=== PATIENT | female | born 1975 | race Caucasian/White ===

== ENCOUNTER 2021-06-01 21:07 | Inpatient (IN) | payer OTHER, SELFPAY ==
--- NOTE | 2021-06-01 | ECG_ITS ---
Test Reason : MEDCLEARANCE Blood Pressure : / mmHG Vent. Rate : 082 BPM Atrial Rate : 082 BPM P-R Int : 130 ms QRS Dur : 080 ms QT Int : 388 ms P-R-T Axes : 043 006 049 degrees QTc Int : 453 ms Artifact in tracing Normal sinus rhythm Likely Normal ECG No previous ECGs available Referred By: Reagan Brown Electronically Signed By:MARIA A TOMAS
[2021-06-01 21:13] VITALS: BP 133/80; PULSE 99; RESP 18; TEMP 36.8; O2SAT 98; BMI 25.0
[2021-06-01 21:38] LABS: MANUAL DIFF FLAG NO
[2021-06-01 21:39] LABS: Basophils Percent Auto 0.3 % (0-2); Eosinophils Absolute Auto 0.1 X10*3/uL (0.0-0.4); Eosinophils Percent Auto 0.5 % (0-4); Hematocrit 41.5 % (37.0-47.0); Hemoglobin 13.7 g/dl (12.0-16.0); Imm Gran Abs Auto 0.02 X10*3/uL (0.00-0.03); Imm Gran Pct Auto 0.2 % (0.0-0.4); Lymphocytes Absolute Auto 2.2 X10*3/uL (1.2-4.9); Lymphocytes Percent Auto 21.9 % (20-40); Mean Corpuscular Hemoglobin 31.2 pg (27.0-33.0); Mean Corpuscular Volume 94.5 fL (80.0-98.0); Mean Platelet Volume 9.7 fL (9.4-12.3); Monocytes Absolute Auto 0.7 X10*3/uL (0.1-1.2); Monocytes Percent Auto 6.5 % (2-11); Neutrophils Absolute Auto 7.1 x10*3/uL (2.0-8.3); Neutrophils Percent Auto 70.6 % (45-73); Platelet Count 225 X10*3/uL (160-400); Red Blood Count 4.39 X10*6/uL (4.20-5.50); Red Cell Distribution Width 12.6 % (11.0-16.0); White Blood Count 10.1 X10*3/uL (4.8-10.8)
[2021-06-01 21:51] LABS: COVID-19 Test Negative (Negative)
[2021-06-01 21:55] LABS: Ethanol < 10 mg/dL
--- NOTE | 2021-06-01 21:57 | ED.PSYCH ---
HPI - Psych General Chief Complaint: Psychiatric Symptoms Stated Complaint: SI Section 12 Time Seen by Provider: 06/01/21 21:57 Source: patient and EMS Mode of arrival: EMS Limitations: no limitations History of Present Illness HPI Narrative: Patient is a 45 year old female presenting to the emergency department today with a section [address] due to suicidal ideation and a Tylenol overdose. Patient states that at 1930 this evening, she took 20 500mg Tylenol PM tablets, attempting to hurt herself. Patient states that she feels sleepy and nauseous but has no other complaints. Patient denies any dizziness, lightheadedness, abdominal pain, vomiting, fever, chills, blurry vision, double vision, loss of vision, chest pain, difficulty breathing, shortness of breath, back pain, night sweats, pain with urination, increased urinary frequency, increased urinary urgency, blood in her urine or stool, syncope or a near syncopal episode, recent trauma or falls, bowel incontinence, bladder incontinence, bowel retention, bladder retention, or any other complaints at this time. MD complaint: suicidal ideation and feels depressed Onset (ago): hour(s) Duration: constant Associated psychiatric symptoms: depression and suicidal ideation If self harm: admits thoughts of self harm, has plan, has acted on plan and intentional overdose Related Data Home Medications Medication Instructions Recorded Confirmed No Known Home Meds 06/01/21 06/01/21 Allergies Allergy/AdvReac Type Severity Reaction Status Date / Time No Known Allergies Allergy Verified 06/01/21 21:19 Review of Systems Constitutional: Constitutional: Reports no additional constitutional complaints, Denies chills, Denies fever(s) and Denies night sweats Eyes: Eyes: Reports no additional eye complaints, Denies blurry vision, Denies change in vision, Denies diplopia, Denies eye discharge, Denies loss of vision and Denies eye pain ENT: Denies dizziness Cardiovascular: Cardiovascular: Reports no additional cardiovascular complaints, Denies chest pain, Denies lightheadedness, Denies Loss of Consciousness and Denies dyspnea Respiratory: Respiratory: Reports no additional respiratory complaints and Denies dyspnea Gastrointestinal: Gastrointestinal: Reports no additional gastrointestinal complaints, Denies abdominal pain, Denies melena, Denies hematochezia, Denies change in bowel habits, Denies change in stool character and Reports nausea Genitourinary: Genitourinary: Denies hematuria, Denies urinary frequency, Denies dysuria, Denies urinary incontinence, Denies urinary hesitancy and Denies urinary urgency Musculoskeletal: Musculoskeletal: Reports no additional musculoskeletal complaints, Denies numbness and Denies tingling Neurologic: Denies dizziness, Denies loss of vision, Denies numbness and Denies tingling Psychiatric: Psychiatric: Reports no additional psychiatric complaints, Reports depression and Reports suicidal ideation Endocrine: Endocrine: Reports no additional endocrine complaints Hematologic/Lymphatic: Hematologic/Lymphatic: Reports no additional hematologic/lymphatic complaints Allergic/Immunologic: Allergic/Immunologic: Reports no additional allergic/immunologic complaints [facility] Past Medical History Attestation statement: The following information was validated with the patient. Source: old records reviewed Social History Social History Advance Directives: No Patient : No Physical Exam Vital Signs: Vital Signs: Last Vital Signs Temp 98.2 F 06/01/21 21:13 Pulse 99 06/01/21 21:13 Resp 18 06/01/21 21:13 BP 133/80 06/01/21 21:13 Pulse Ox 98 06/01/21 21:13 BMI result Body Mass Index 22.4 Const: General: cooperative, no acute distress, alert and awake Nutritional Appearance: well nourished Orientation/consciousness: patient oriented x3 Limitations: no limitations HENMT: Head: Yes normal to inspection and Yes atraumatic Ears: hearing grossly normal bilaterally and external ears normal General nose exam: Normal external nose present, no nasal discharge noted and no epistaxis Face and sinus: Yes normal facial exam, No abrasion and No laceration Mouth: Normal oral and palatal mucosa present, no drooling and no muffled voice Eyes: General: appearance normal, both eyes and all related structures Periorbital: periorbital findings normal Eyelids: Yes eyelids normal Conjunctivae: conjunctivae normal Pupils: Equal, round and reactive pupils present EOM: EOMs intact bilaterally Neck: Neck: Yes normal visual inspection, Yes full ROM and Yes no lymphadenopathy Chest: Chest palpation & inspection: normal inspection of the chest Resp: Effort & Inspection: normal respiratory effort and able to speak in complete sentences Auscultation: clear to auscultation bilaterally Cardio: Rate: regular rate Rhythm: regular rhythm GI: Inspection: Yes normal to inspection Neuro: General: patient oriented x3 and moves all extremities Cranial nerves: Yes Equal, round and reactive pupils present Cognition (Neuro): normal cognition Motor exam (neuro): 5/5 motor strength present throughout Sensory Exam: Normal double simultaneous stimulation for sensation Coordination: [id number] test normal Extrem: General: Yes normal to inspection, Yes full ROM and Yes capillary refill normal Psych: Appearance: grossly normal Mental Status: mental status grossly normal Affect: normal affect Attitude: cooperative Thought process: Normal thought process present Thought content: Suicidality present and Depressive thoughts present Insight: Good insight present (Psych) MDM - Psych MDM Narrative Medical decision making narrative: Patient is a 45 year old female presenting to the emergency department today with suicidal ideation and an intentional overdose on Tylenol. Patient has a section [address] as well. Patient's physical exam showed a sleepy individual who is suicidal but otherwise unremarkable. Patient's blood work showed an elevated alcohol level at 153 but a normal salicyclate, CMP, and CBC. Patient's urine toxicology was positive for THC. Patient's EKG was unremarkable. I called and spoke to poison control who recommended the patient be given Tylenol antidote and admitted for continued evaluation. I explained my physical exam findings as well as all test results to the patient. I answered all questions asked by the patient. I spoke to Dr. Feliz who agreed to admission. Patient verbalized agreement and understanding with this treatment plan and admission. Patient will be evaluated by psych after cleared medically. Differential Diagnosis Differential diagnosis: Likely suicidal ideation, substance abuse and overdose Medical Records Attestation: I reviewed the patient's medical records. Lab Data Attestation: I reviewed the patient's lab results. Result diagrams: 06/01/21 21:35 06/01/21 21:35 Labs: Lab Results 06/01/21 06/01/21 06/01/21 Range/Units 21:29 21:35 21:35 WBC 10.1 (4.8-10.8) X10*3/uL RBC 4.39 (4.20-5.50) X10*6/uL Hgb 13.7 (12.0-16.0) g/dl Hct 41.5 (37.0-47.0) % MCV 94.5 (80.0-98.0) fL MCH 31.2 (27.0-33.0) pg MCHC 33.0 (31.0-35.0) g/dl RDW 12.6 (11.0-16.0) % Plt Count 225 (160-400) X10*3/uL MPV 9.7 (9.4-12.3) fL Immature Gran % (Auto) 0.2 (0.0-0.4) % Neut % (Auto) 70.6 (45-73) % Lymph % (Auto) 21.9 (20-40) % [place] % (Auto) 6.5 (2-11) % Eos % (Auto) 0.5 (0-4) % Baso % (Auto) 0.3 (0-2) % Lymph # (Auto) 2.2 (1.2-4.9) X10*3/uL [place] # (Auto) 0.7 (0.1-1.2) X10*3/uL Eos # (Auto) 0.1 (0.0-0.4) X10*3/uL Baso # (Auto) 0.0 (0.0-0.2) X10*3/uL Abs Immat Gran (auto) 0.02 (0.00-0.03) X10*3/uL Absolute Neuts (auto) 7.1 (2.0-8.3) x10*3/uL Absolute Nucleated RBC 0.000 (0.0-0.012) X10*3/uL Nucleated RBC % (auto) 0.0 (0.0-0.2) /100WBC Sodium 140 (135-145) mmol/L Potassium 4.1 (3.3-5.1) mmol/L Chloride 104 (96-108) mmol/L Carbon Dioxide 27 (22-29) mmol/L Anion Gap 13 (12-20) BUN 14 (9-16) mg/dL Creatinine 0.86 (0.5-1.4) mg/dL Estim Creat Clear Calc 74.3 Estimated GFR > 60 Random Glucose 116 H (60-115) mg/dL Calcium 9.6 (8.4-10.2) mg/dL Total Bilirubin 0.4 (0.0-1.0) mg/dL Direct Bilirubin 0.2 (0.0-0.5) mg/dL AST 16 (5-31) U/L ALT 10 (0-31) U/L Alkaline Phosphatase 64 (39-117) U/L Total Protein 7.8 (6.5-8.0) g/dL Albumin 4.8 (3.5-5.0) g/dL Urine Color Urine Appearance Urine pH (5.0-8.0) Ur Specific [place] (1.005-1.025) Urine Protein (NEG-TRACE) MG/DL Urine Glucose (UA) (NEG) MG/DL Urine Ketones (NEG) MG/DL Urine Blood (NEG) Urine Nitrite (NEG) Ur Leukocyte Esterase (NEG) Urine RBC (0) /HPF Urine WBC (0-4) /HPF Ur Squamous Epith Cells /LPF Amorphous Sediment /LPF Urine Bacteria /LPF Hyaline Casts /LPF Urine Mucus /LPF Urine Test (NEGATIVE) Salicylates < 5.0 L (15-30) mg/dL Urine Opiates Screen (Not Detect) Urine Fentanyl Screen (Not Detect) Acetaminophen 153 H* (<30) mcg/mL Ur Barbiturates Screen (Not Detect) Ur Phencyclidine Scrn (Not Detect) Ur Amphetamines Screen (Not Detect) U Benzodiazepines Scrn (Not Detect) Urine Cocaine Screen (Not Detect) U Marijuana (THC) Screen (Not Detect) Ethyl Alcohol mg/dL COVID-19 ([facility]) Negative (Negative) COVID-19 Clin Com See Note 06/01/21 06/01/21 06/01/21 Range/Units 21:35 22:12 22:12 WBC (4.8-10.8) X10*3/uL RBC (4.20-5.50) X10*6/uL Hgb (12.0-16.0) g/dl Hct (37.0-47.0) % MCV (80.0-98.0) fL MCH (27.0-33.0) pg MCHC (31.0-35.0) g/dl RDW (11.0-16.0) % Plt Count (160-400) X10*3/uL MPV (9.4-12.3) fL Immature Gran % (Auto) (0.0-0.4) % Neut % (Auto) (45-73) % Lymph % (Auto) (20-40) % [place] % (Auto) (2-11) % Eos % (Auto) (0-4) % Baso % (Auto) (0-2) % Lymph # (Auto) (1.2-4.9) X10*3/uL [place] # (Auto) (0.1-1.2) X10*3/uL Eos # (Auto) (0.0-0.4) X10*3/uL Baso # (Auto) (0.0-0.2) X10*3/uL Abs Immat Gran (auto) (0.00-0.03) X10*3/uL Absolute Neuts (auto) (2.0-8.3) x10*3/uL Absolute Nucleated RBC (0.0-0.012) X10*3/uL Nucleated RBC % (auto) (0.0-0.2) /100WBC Sodium (135-145) mmol/L Potassium (3.3-5.1) mmol/L Chloride (96-108) mmol/L Carbon Dioxide (22-29) mmol/L Anion Gap (12-20) BUN (9-16) mg/dL Creatinine (0.5-1.4) mg/dL Estim Creat Clear Calc Estimated GFR Random Glucose (60-115) mg/dL Calcium (8.4-10.2) mg/dL Total Bilirubin (0.0-1.0) mg/dL Direct Bilirubin (0.0-0.5) mg/dL AST (5-31) U/L ALT (0-31) U/L Alkaline Phosphatase (39-117) U/L Total Protein (6.5-8.0) g/dL Albumin (3.5-5.0) g/dL Urine Color YELLOW Urine Appearance CLEAR Urine pH 5.5 (5.0-8.0) Ur Specific [place] >= 1.030 H (1.005-1.025) Urine Protein 1+ H (NEG-TRACE) MG/DL Urine Glucose (UA) NEG (NEG) MG/DL Urine Ketones 15 (NEG) MG/DL Urine Blood NEG (NEG) Urine Nitrite NEG (NEG) Ur Leukocyte Esterase NEG (NEG) Urine RBC 0-2 (0) /HPF Urine WBC 0 (0-4) /HPF Ur Squamous Epith Cells 2+ /LPF Amorphous Sediment 2+ /LPF Urine Bacteria NONE /LPF Hyaline Casts 0-2 /LPF Urine Mucus 4+ /LPF Urine Test NEGATIVE (NEGATIVE) Salicylates (15-30) mg/dL Urine Opiates Screen (Not Detect) Urine Fentanyl Screen (Not Detect) Acetaminophen (<30) mcg/mL Ur Barbiturates Screen (Not Detect) Ur Phencyclidine Scrn (Not Detect) Ur Amphetamines Screen (Not Detect) U Benzodiazepines Scrn (Not Detect) Urine Cocaine Screen (Not Detect) U Marijuana (THC) Screen (Not Detect) Ethyl Alcohol < 10 mg/dL COVID-19 ([facility]) (Negative) COVID-19 Clin Com 06/01/21 Range/Units 22:12 WBC (4.8-10.8) X10*3/uL RBC (4.20-5.50) X10*6/uL Hgb (12.0-16.0) g/dl Hct (37.0-47.0) % MCV (80.0-98.0) fL MCH (27.0-33.0) pg MCHC (31.0-35.0) g/dl RDW (11.0-16.0) % Plt Count (160-400) X10*3/uL MPV (9.4-12.3) fL Immature Gran % (Auto) (0.0-0.4) % Neut % (Auto) (45-73) % Lymph % (Auto) (20-40) % [place] % (Auto) (2-11) % Eos % (Auto) (0-4) % Baso % (Auto) (0-2) % Lymph # (Auto) (1.2-4.9) X10*3/uL [place] # (Auto) (0.1-1.2) X10*3/uL Eos # (Auto) (0.0-0.4) X10*3/uL Baso # (Auto) (0.0-0.2) X10*3/uL Abs Immat Gran (auto) (0.00-0.03) X10*3/uL Absolute Neuts (auto) (2.0-8.3) x10*3/uL Absolute Nucleated RBC (0.0-0.012) X10*3/uL Nucleated RBC % (auto) (0.0-0.2) /100WBC Sodium (135-145) mmol/L Potassium (3.3-5.1) mmol/L Chloride (96-108) mmol/L Carbon Dioxide (22-29) mmol/L Anion Gap (12-20) BUN (9-16) mg/dL Creatinine (0.5-1.4) mg/dL Estim Creat Clear Calc Estimated GFR Random Glucose (60-115) mg/dL Calcium (8.4-10.2) mg/dL Total Bilirubin (0.0-1.0) mg/dL Direct Bilirubin (0.0-0.5) mg/dL AST (5-31) U/L ALT (0-31) U/L Alkaline Phosphatase (39-117) U/L Total Protein (6.5-8.0) g/dL Albumin (3.5-5.0) g/dL Urine Color Urine Appearance Urine pH (5.0-8.0) Ur Specific [place] (1.005-1.025) Urine Protein (NEG-TRACE) MG/DL Urine Glucose (UA) (NEG) MG/DL Urine Ketones (NEG) MG/DL Urine Blood (NEG) Urine Nitrite (NEG) Ur Leukocyte Esterase (NEG) Urine RBC (0) /HPF Urine WBC (0-4) /HPF Ur Squamous Epith Cells /LPF Amorphous Sediment /LPF Urine Bacteria /LPF Hyaline Casts /LPF Urine Mucus /LPF Urine Test (NEGATIVE) Salicylates (15-30) mg/dL Urine Opiates Screen Not Detected (Not Detect) Urine Fentanyl Screen Not Detected (Not Detect) Acetaminophen (<30) mcg/mL Ur Barbiturates Screen Not Detected (Not Detect) Ur Phencyclidine Scrn Not Detected (Not Detect) Ur Amphetamines Screen Not Detected (Not Detect) U Benzodiazepines Scrn Not Detected (Not Detect) Urine Cocaine Screen Not Detected (Not Detect) U Marijuana (THC) Screen POSITIVE H (Not Detect) Ethyl Alcohol mg/dL COVID-19 ([facility]) (Negative) COVID-19 Clin Com ECG Data Attestation: I personally reviewed and interpreted this ECG as follows: ECG interpretation date: 06/01/21 ECG interpretation time: 21:36 Prior ECG tracings: not available for review Interpretation: Vent. Rate: 082 BPM ? ? Atrial Rate: 082 BPM P-R Int: 130 ms? QRS Dur: 080 ms QT Int: 388 ms ? ? ? P-R-T Axes: 043 006 049 degrees QTc Int: 453 ms ? Normal sinus rhythm Normal ECG No previous ECGs available Discharge Plan Discharge Clinical Impression: Depression, Feeling suicidal, Overdose by acetaminophen Patient Disposition: Admitted As Inpatient Prescriptions: No Action No Known Home Meds 0RF Print Language: Cameroonian
[2021-06-01 22:04] LABS: Acetaminophen LAB 153 mcg/mL (<30); Alanine Aminotransferase 10 U/L (0-31); Albumin Level 4.8 g/dL (3.5-5.0); Alkaline Phosphatase 64 U/L (39-117); Anion Gap 13 (12-20); Aspartate Amino Transferase 16 U/L (5-31); Bilirubin Direct 0.2 mg/dL (0.0-0.5); Bilirubin Total 0.4 mg/dL (0.0-1.0); Blood Urea Nitrogen 14 mg/dL (9-16); Calcium 9.6 mg/dL (8.4-10.2); Carbon Dioxide 27 mmol/L (22-29); Chloride 104 mmol/L (96-108); Creatinine Clr Calc Pharmacy 74.3; Estimated Glomerular Filt Rate > 60; Glucose Random 116 mg/dL (60-115); Potassium 4.1 mmol/L (3.3-5.1); Salicylate < 5.0 mg/dL (15-30); Sodium 140 mmol/L (135-145); Total Protein 7.8 g/dL (6.5-8.0)
[2021-06-01 22:19] LABS: Appearance Urine CLEAR; Color Urine YELLOW; Glucose Urine UA NEG (NEG); Leukocyte Esterase Urine NEG (NEG); Nitrite Urine NEG (NEG); PH 5.5 (5.0-8.0); Specific Gravity - Urine >= 1.030 (1.005-1.025); Urine Blood NEG (NEG); Urine Ketones 15 MG/DL (NEG); Urine Protein 1+ MG/DL (NEG-TRACE)
[2021-06-01 22:21] LABS: UPreg QC Valid YES; Urine Pregnancy NEGATIVE (NEGATIVE)
[2021-06-01 22:30] LABS: Amorphous Sediment Urine 2+ /LPF; Hyaline Casts Urine 0-2 /LPF; Mucus Urine 4+ /LPF; RBC Urine 0-2 /HPF (0); Squamous Epithelial Cell Urine 2+ /LPF; WBC Urine 0 /HPF (0-4)
[2021-06-01 22:31] VITALS: BMI 22.4
[2021-06-01 22:46] LABS: Amphetamine Screen Urine Not Detected (Not Detect); Barbiturates, Urine Not Detected (Not Detect); Benzodiazepines Screen Urine Not Detected (Not Detect); Cannabinoid Screen Urine POSITIVE (Not Detect); Cocaine Screen Urine Not Detected (Not Detect); Fentanyl, urine Not Detected (Not Detect); Opiate Screen Urine Not Detected (Not Detect); Phencyclidine Screen Urine Not Detected (Not Detect)
--- NOTE | 2021-06-01 23:11 | P.HPHOSP_ITS ---
History of Present Illness Date of Service: 06/01/21 Chief Complaint: Suicide attempt 45-year-old female with past medical history of depression presents to the hospital after suicidal attempt with Tylenol. Patient reports that she ingested more than 20 pills of Tylenol p.m. in attempt to kill herself. Patient at this time reports remorse and does not feel like she wants to hurt herself anymore. She denies any abdominal pain but reports nausea, no chest pain, no palpitations, no headache change in vision, no dizziness. No urinary symptoms and no lower extremity edema. No numbness tingling or weakness. on arrival to the ED patient with dynamic least stable labs unremarkable, no abnormal LFTs at this time Poison control contacted, patient started on acetylcysteine, recommendation was to repeat labs frequently suicide watch place in patient room, and patient will be admitted for further management Review of Systems Review of Systems: Yes all other systems are reviewed and are negative [facility] Medical History (Updated 06/02/21 @ 06:48 by Samantha Feliz MD) Depression Family History (Updated 06/02/21 @ 06:48 by Samantha Feliz MD) Other No family history of coronary artery disease Surgical History (Updated 06/02/21 @ 06:48 by Samantha Feliz MD) No pertinent past surgical history Social History (Updated 06/02/21 @ 06:48 by Samantha Feliz MD) Alcohol intake: current Patient Tobacco Use Status: Current everyday Tobacco user Cigarette Packs Per Day: 1 Use of substances other than those prescribed or required for medical reasons: No Advance Directives: No Patient : No Meds Allergies Allergy/AdvReac Type Severity Reaction Status Date / Time No Known Allergies Allergy Verified 06/01/21 21:19 Active Medications: Current Medications Acetylcysteine 9,170 mg/ (Dextrose) 245.85 mls @ 245.85 mls/hr IV ONCE ONE Stop: 06/01/21 23:20 Acetylcysteine 6,110 mg/ (Dextrose) 1,030.55 mls @ 64.4 mls/hr IV ONCE ONE Stop: 06/02/21 20:00 Acetylcysteine 3,060 mg/ (Dextrose) 515.3 mls @ 128.825 mls/hr IV ONCE ONE Stop: 06/02/21 03:59 Home Medications Medication Instructions Recorded Confirmed Last Taken Type No Known Home Meds 06/01/21 06/01/21 Unknown History Physical Exam Vital Signs and Narrative: Vital Signs: Last Vital Signs Temp 98.2 F 06/01/21 21:13 Pulse 99 06/01/21 21:13 Resp 18 06/01/21 21:13 BP 133/80 06/01/21 21:13 Pulse Ox 98 06/01/21 21:13 BMI result Body Mass Index 22.4 Const: General: cooperative and no acute distress Orientation/consciousness: patient oriented x3 Eyes: General: appearance normal, both eyes and all related structures Pupils: Equal, round and reactive pupils present Resp: Effort & Inspection: normal respiratory effort Auscultation: clear to auscultation bilaterally Cardio: Rate: regular rate Rhythm: regular rhythm GI: Other: no abdominal tenderness, rebound or guarding Palpation (GI): Soft to palpation Auscultation: normal bowel sounds Skin: General skin exam: no rashes or lesions noted Neuro: General: patient oriented x3 Cranial nerves: Yes Equal, round and reactive pupils present Cognition (Neuro): normal cognition Extrem: General: Yes normal to inspection and Yes no pedal edema Results Labs CBC and Chem 7: 06/01/21 21:35 06/01/21 21:35 Labs: Laboratory Results - last 24 hr 06/01/21 06/01/21 06/01/21 21:29 21:35 21:35 MCV 94.5 MCH 31.2 MCHC 33.0 RDW 12.6 Plt Count 225 MPV 9.7 Immature Gran % (Auto) 0.2 Neut % (Auto) 70.6 Lymph % (Auto) 21.9 [place] % (Auto) 6.5 Eos % (Auto) 0.5 Baso % (Auto) 0.3 Lymph # (Auto) 2.2 [place] # (Auto) 0.7 Eos # (Auto) 0.1 Baso # (Auto) 0.0 Abs Immat Gran (auto) 0.02 Absolute Neuts (auto) 7.1 Absolute Nucleated RBC 0.000 Nucleated RBC % (auto) 0.0 Anion Gap 13 Estim Creat Clear Calc 74.3 Estimated GFR > 60 Random Glucose 116 H Calcium 9.6 Total Bilirubin 0.4 Direct Bilirubin 0.2 AST 16 ALT 10 Alkaline Phosphatase 64 Total Protein 7.8 Albumin 4.8 Urine Color Urine Appearance Urine pH Ur Specific [place] Urine Protein Urine Glucose (UA) Urine Ketones Urine Blood Urine Nitrite Ur Leukocyte Esterase Urine RBC Urine WBC Ur Squamous Epith Cells Amorphous Sediment Urine Bacteria Hyaline Casts Urine Mucus Urine Test Salicylates < 5.0 L Urine Opiates Screen Urine Fentanyl Screen Acetaminophen 153 H* Ur Barbiturates Screen Ur Phencyclidine Scrn Ur Amphetamines Screen U Benzodiazepines Scrn Urine Cocaine Screen U Marijuana (THC) Screen Ethyl Alcohol COVID-19 ([facility]) Negative COVID-19 Clin Com See Note 06/01/21 06/01/21 06/01/21 21:35 22:12 22:12 MCV MCH MCHC RDW Plt Count MPV Immature Gran % (Auto) Neut % (Auto) Lymph % (Auto) [place] % (Auto) Eos % (Auto) Baso % (Auto) Lymph # (Auto) [place] # (Auto) Eos # (Auto) Baso # (Auto) Abs Immat Gran (auto) Absolute Neuts (auto) Absolute Nucleated RBC Nucleated RBC % (auto) Anion Gap Estim Creat Clear Calc Estimated GFR Random Glucose Calcium Total Bilirubin Direct Bilirubin AST ALT Alkaline Phosphatase Total Protein Albumin Urine Color YELLOW Urine Appearance CLEAR Urine pH 5.5 Ur Specific [place] >= 1.030 H Urine Protein 1+ H Urine Glucose (UA) NEG Urine Ketones 15 Urine Blood NEG Urine Nitrite NEG Ur Leukocyte Esterase NEG Urine RBC 0-2 Urine WBC 0 Ur Squamous Epith Cells 2+ Amorphous Sediment 2+ Urine Bacteria NONE Hyaline Casts 0-2 Urine Mucus 4+ Urine Test NEGATIVE Salicylates Urine Opiates Screen Urine Fentanyl Screen Acetaminophen Ur Barbiturates Screen Ur Phencyclidine Scrn Ur Amphetamines Screen U Benzodiazepines Scrn Urine Cocaine Screen U Marijuana (THC) Screen Ethyl Alcohol < 10 COVID-19 ([facility]) COVID-19 Clin Com 06/01/21 22:12 MCV MCH MCHC RDW Plt Count MPV Immature Gran % (Auto) Neut % (Auto) Lymph % (Auto) [place] % (Auto) Eos % (Auto) Baso % (Auto) Lymph # (Auto) [place] # (Auto) Eos # (Auto) Baso # (Auto) Abs Immat Gran (auto) Absolute Neuts (auto) Absolute Nucleated RBC Nucleated RBC % (auto) Anion Gap Estim Creat Clear Calc Estimated GFR Random Glucose Calcium Total Bilirubin Direct Bilirubin AST ALT Alkaline Phosphatase Total Protein Albumin Urine Color Urine Appearance Urine pH Ur Specific [place] Urine Protein Urine Glucose (UA) Urine Ketones Urine Blood Urine Nitrite Ur Leukocyte Esterase Urine RBC Urine WBC Ur Squamous Epith Cells Amorphous Sediment Urine Bacteria Hyaline Casts Urine Mucus Urine Test Salicylates Urine Opiates Screen Not Detected Urine Fentanyl Screen Not Detected Acetaminophen Ur Barbiturates Screen Not Detected Ur Phencyclidine Scrn Not Detected Ur Amphetamines Screen Not Detected U Benzodiazepines Scrn Not Detected Urine Cocaine Screen Not Detected U Marijuana (THC) Screen POSITIVE H Ethyl Alcohol COVID-19 ([facility]) COVID-19 Clin Com Assessment and Plan (1) Overdose by acetaminophen: Status: Acute (2) Depression: Status: Acute (3) Suicide attempt: Status: Acute Plan 45-year-old female with history of depression presents to the hospital after suicidal attempt with Tylenol # suicidal attempt - overdose on Tylenol p.m. - currently hemodynamically stable, labs within normal limits, no LFT change - sitter at bedside - psychiatry consult at # Tylenol overdose - intentional - received 3 doses of acetylcystine - HDS, no abnormal liver function - will follow liver function tests - poison control following # severe depression - [facility] consult DVT prophylaxis: Lovenox Quality Stroke Does the patient have a stroke diagnosis?: No VTE Prior VTE?: No VTE Risk Level:: Medical - moderate - high VTE Device Contraindication: Treatment Not Indicated VTE Drug Contraindication: N/A - Med Ordered
[2021-06-01 23:12] LABS: Prothrombin Time 11.3 SEC (9.9-13.0)
[2021-06-01 23:58] LABS: Alanine Aminotransferase 10 U/L (0-31); Albumin Level 4.5 g/dL (3.5-5.0); Alkaline Phosphatase 62 U/L (39-117); Aspartate Amino Transferase 15 U/L (5-31); Bilirubin Direct 0.2 mg/dL (0.0-0.5); Bilirubin Total 0.4 mg/dL (0.0-1.0); Total Protein 7.3 g/dL (6.5-8.0)
[2021-06-02] MEDS: hydrOXYzine HCL 25 MG TABLET PO ×2 (02:42→21:50)
[2021-06-02 05:41] VITALS: BP 152/83; PULSE 61; RESP 18; TEMP 36.9; O2SAT 100
[2021-06-02 05:44] LABS: Alanine Aminotransferase 29 U/L (0-31); Albumin Level 4.4 g/dL (3.5-5.0); Alkaline Phosphatase 59 U/L (39-117); Aspartate Amino Transferase 54 U/L (5-31); Bilirubin Direct 0.2 mg/dL (0.0-0.5); Bilirubin Total 0.6 mg/dL (0.0-1.0); Total Protein 7.2 g/dL (6.5-8.0)
[2021-06-02 06:42] LABS: MANUAL DIFF FLAG NO
[2021-06-02 06:45] LABS: Basophils Percent Auto 0.1 % (0-2); Hematocrit 40.4 % (37.0-47.0); Hemoglobin 13.5 g/dl (12.0-16.0); Imm Gran Abs Auto 0.02 X10*3/uL (0.00-0.03); Imm Gran Pct Auto 0.2 % (0.0-0.4); Lymphocytes Absolute Auto 1.4 X10*3/uL (1.2-4.9); Lymphocytes Percent Auto 16.3 % (20-40); Mean Corpuscular HGB Conc 33.4 g/dl (31.0-35.0); Mean Corpuscular Volume 92.9 fL (80.0-98.0); Mean Platelet Volume 9.5 fL (9.4-12.3); Monocytes Absolute Auto 0.6 X10*3/uL (0.1-1.2); Monocytes Percent Auto 6.6 % (2-11); Neutrophils Absolute Auto 6.7 x10*3/uL (2.0-8.3); Neutrophils Percent Auto 76.8 % (45-73); Platelet Count 211 X10*3/uL (160-400); Red Blood Count 4.35 X10*6/uL (4.20-5.50); Red Cell Distribution Width 12.6 % (11.0-16.0); White Blood Count 8.8 X10*3/uL (4.8-10.8)
[2021-06-02 07:02] LABS: Anion Gap 13 (12-20); Blood Urea Nitrogen 11 mg/dL (9-16); Carbon Dioxide 23 mmol/L (22-29); Chloride 106 mmol/L (96-108); Creatinine Clr Calc Pharmacy 91.3; Estimated Glomerular Filt Rate > 60; Glucose Random 122 mg/dL (60-115); Potassium 3.7 mmol/L (3.3-5.1); Sodium 138 mmol/L (135-145)
[2021-06-02 07:11] LABS: Alanine Aminotransferase 30 U/L (0-31); Albumin Level 4.2 g/dL (3.5-5.0); Alkaline Phosphatase 59 U/L (39-117); Aspartate Amino Transferase 40 U/L (5-31); Bilirubin Direct 0.2 mg/dL (0.0-0.5); Bilirubin Total 0.7 mg/dL (0.0-1.0)
[2021-06-02] MEDS: ondansetron HCL 4 MG/2 ML VIAL IVPUSH ×2 (08:04→17:51)
[2021-06-02 09:08] LABS: Acetaminophen LAB 49 mcg/mL (<30)
[2021-06-02] MEDS: Nicotine 21 MG PATCH.TD24 TRANSDERMA (09:28)
[2021-06-02 10:16] VITALS: BP 124/70; PULSE 77; RESP 16; TEMP 36.8; O2SAT 97
--- NOTE | 2021-06-02 10:34 | PC.NURSE ---
patient is awake. She does not want any information given to anyone who may call the ED in regards to her status. Dr Jimenes and BIANCA was present on floor
[2021-06-02 11:47] LABS: Alanine Aminotransferase 27 U/L (0-31); Albumin Level 4.3 g/dL (3.5-5.0); Alkaline Phosphatase 59 U/L (39-117); Aspartate Amino Transferase 29 U/L (5-31); Bilirubin Direct 0.3 mg/dL (0.0-0.5); Bilirubin Total 0.8 mg/dL (0.0-1.0)
[2021-06-02 11:55] VITALS: BP 138/69; PULSE 65; RESP 21
--- NOTE | 2021-06-02 12:09 | MHC.CM.PN ---
Addendum entered by Carla Anthony 06/02/21 12:20: PER MD ROUNDS, PT WILL LIKELY BE MEDICALLY CLEARED THIS EVENING. DISCHARGE PLAN TBD PENDING CRISIS EVAL. HOME VS IPL[facility] Original Note: CM ATTEMPTED TO SEE PT TWICE. PT SLEEPING. CM TO REVISIT
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
[2021-06-02 15:52] VITALS: BP 129/64; PULSE 77; RESP 16; TEMP 36.6; O2SAT 98
--- NOTE | 2021-06-02 16:41 | HO.PM.IMPN ---
Subjective Subjective Date of Service: 06/02/21 Interval History: tylenol overdose , anxious Review of Systems denies any chest pain or shortness of breath or abdominal pain or fever chills or cough or phlegm. Physical Exam Vital Signs: Vital Signs: Last Vital Signs Temp 97.9 F 06/02/21 15:52 Pulse 77 06/02/21 15:52 Resp 16 06/02/21 15:52 BP 129/64 06/02/21 15:52 Pulse Ox 98 06/02/21 15:52 BMI result Body Mass Index 22.4 Appearance: Alert.? Oriented X3.? not in distress.? Eyes: Pupils equal, round and reactive to light.? Sclera nonicteric.? ENT: Pharynx normal.? Moist mucous membranes. cvs: rrr, [id number] , no murmur res: clear to auscultation ,no rhonchii or wheezing abd: no rebound or guarding ,nt, bs present. ext pulses present , no cyanosis . neuro: axo3 , nonfocal. psych : anxious , tries to leave . Objective Data Active Medications Docusate Sodium (Docusate Sodium 100 Mg Capsule) 100 mg PO DAILY PRN PRN Reason: Constipation Enoxaparin Sodium (Enoxaparin Sodium 40 Mg/0.4 Ml Syringe) 40 mg SUBCUT Q24H [facility] Last Admin: 06/02/21 09:28 Dose: Not Given Documented by: YOANA Non-Admin Reason: Patient Refused Hydroxyzine HCl (Hydroxyzine Hcl 25 Mg Tablet) 25 mg PO Q6H PRN PRN Reason: anxiety/restlessness Last Admin: 06/02/21 02:42 Dose: 25 mg Documented by: ANDREA Acetylcysteine 6,110 mg/ (Dextrose) 1,030.55 mls @ 64.4 mls/hr IV ONCE ONE Stop: 06/02/21 20:00 Last Admin: 06/02/21 05:26 Dose: 64.4 mls/hr Documented by: ANDREA Nicotine (Nicotine 21 Mg Patch.Td24) 21 mg TRANSDERMA DAILY [facility] Last Admin: 06/02/21 09:28 Dose: 21 mg Documented by: YOANA Ondansetron HCl (Ondansetron Hcl 4 Mg/2 Ml Vial) 4 mg IVPUSH Q8H PRN PRN Reason: Nausea and Vomiting Sodium Chloride (0.9 % Sodium Chloride Flush 3 Ml Syringe) 3 ml IVFLUSH QSHIFT [facility] Last Admin: 06/02/21 15:49 Dose: Not Given Documented by: JENNIFER Non-Admin Reason: IV Running Labs CBC & Chem 7: 06/02/21 06:38 06/02/21 06:38 Labs: Laboratory Results - last 24 hr 06/01/21 06/01/21 06/01/21 21:29 21:35 21:35 MCV 94.5 MCH 31.2 MCHC 33.0 RDW 12.6 Plt Count 225 MPV 9.7 Immature Gran % (Auto) 0.2 Neut % (Auto) 70.6 Lymph % (Auto) 21.9 Lea % (Auto) 6.5 Eos % (Auto) 0.5 Baso % (Auto) 0.3 Lymph # (Auto) 2.2 Lea # (Auto) 0.7 Eos # (Auto) 0.1 Baso # (Auto) 0.0 Abs Immat Gran (auto) 0.02 Absolute Neuts (auto) 7.1 Absolute Nucleated RBC 0.000 Nucleated RBC % (auto) 0.0 PT INR Anion Gap 13 Estim Creat Clear Calc 74.3 Estimated GFR > 60 Random Glucose 116 H Calcium 9.6 Total Bilirubin 0.4 Direct Bilirubin 0.2 AST 16 ALT 10 Alkaline Phosphatase 64 Total Protein 7.8 Albumin 4.8 Urine Color Urine Appearance Urine pH Ur Specific [place] Urine Protein Urine Glucose (UA) Urine Ketones Urine Blood Urine Nitrite Ur Leukocyte Esterase Urine RBC Urine WBC Ur Squamous Epith Cells Amorphous Sediment Urine Bacteria Hyaline Casts Urine Mucus Urine Test Salicylates < 5.0 L Urine Opiates Screen Urine Fentanyl Screen Acetaminophen 153 H* Ur Barbiturates Screen Ur Phencyclidine Scrn Ur Amphetamines Screen U Benzodiazepines Scrn Urine Cocaine Screen U Marijuana (THC) Screen Ethyl Alcohol COVID-19 ([facility]) Negative COVID-19 Clin Com See Note 06/01/21 06/01/21 06/01/21 21:35 22:12 22:12 MCV MCH MCHC RDW Plt Count MPV Immature Gran % (Auto) Neut % (Auto) Lymph % (Auto) Lea % (Auto) Eos % (Auto) Baso % (Auto) Lymph # (Auto) Lea # (Auto) Eos # (Auto) Baso # (Auto) Abs Immat Gran (auto) Absolute Neuts (auto) Absolute Nucleated RBC Nucleated RBC % (auto) PT INR Anion Gap Estim Creat Clear Calc Estimated GFR Random Glucose Calcium Total Bilirubin Direct Bilirubin AST ALT Alkaline Phosphatase Total Protein Albumin Urine Color YELLOW Urine Appearance CLEAR Urine pH 5.5 Ur Specific [place] >= 1.030 H Urine Protein 1+ H Urine Glucose (UA) NEG Urine Ketones 15 Urine Blood NEG Urine Nitrite NEG Ur Leukocyte Esterase NEG Urine RBC 0-2 Urine WBC 0 Ur Squamous Epith Cells 2+ Amorphous Sediment 2+ Urine Bacteria NONE Hyaline Casts 0-2 Urine Mucus 4+ Urine Test NEGATIVE Salicylates Urine Opiates Screen Urine Fentanyl Screen Acetaminophen Ur Barbiturates Screen Ur Phencyclidine Scrn Ur Amphetamines Screen U Benzodiazepines Scrn Urine Cocaine Screen U Marijuana (THC) Screen Ethyl Alcohol < 10 COVID-19 ([facility]) COVID-19 [employer] 06/01/21 06/01/21 06/01/21 22:12 23:00 23:34 MCV MCH MCHC RDW Plt Count MPV Immature Gran % (Auto) Neut % (Auto) Lymph % (Auto) Lea % (Auto) Eos % (Auto) Baso % (Auto) Lymph # (Auto) [place] # (Auto) Eos # (Auto) Baso # (Auto) Abs Immat Gran (auto) Absolute Neuts (auto) Absolute Nucleated RBC Nucleated RBC % (auto) PT 11.3 INR 1.0 Anion Gap Estim Creat Clear Calc Estimated GFR Random Glucose Calcium Total Bilirubin 0.4 Direct Bilirubin 0.2 AST 15 ALT 10 Alkaline Phosphatase 62 Total Protein 7.3 Albumin 4.5 Urine Color Urine Appearance Urine pH Ur Specific [place] Urine Protein Urine Glucose (UA) Urine Ketones Urine Blood Urine Nitrite Ur Leukocyte Esterase Urine RBC Urine WBC Ur Squamous Epith Cells Amorphous Sediment Urine Bacteria Hyaline Casts Urine Mucus Urine Test Salicylates Urine Opiates Screen Not Detected Urine Fentanyl Screen Not Detected Acetaminophen Ur Barbiturates Screen Not Detected Ur Phencyclidine Scrn Not Detected Ur Amphetamines Screen Not Detected U Benzodiazepines Scrn Not Detected Urine Cocaine Screen Not Detected U Marijuana (THC) Screen POSITIVE H Ethyl Alcohol COVID-19 ([facility]) COVID-19 [employer] Com 06/02/21 06/02/21 06/02/21 03:00 06:38 06:38 MCV 92.9 MCH 31.0 MCHC 33.4 RDW 12.6 Plt Count 211 MPV 9.5 Immature Gran % (Auto) 0.2 Neut % (Auto) 76.8 H Lymph % (Auto) 16.3 L [place] % (Auto) 6.6 Eos % (Auto) 0.0 Baso % (Auto) 0.1 Lymph # (Auto) 1.4 Lea # (Auto) 0.6 Eos # (Auto) 0.0 Baso # (Auto) 0.0 Abs Immat Gran (auto) 0.02 Absolute Neuts (auto) 6.7 Absolute Nucleated RBC 0.000 Nucleated RBC % (auto) 0.0 PT INR Anion Gap 13 Estim Creat Clear Calc 91.3 Estimated GFR > 60 Random Glucose 122 H Calcium 9.0 D Total Bilirubin 0.6 Direct Bilirubin 0.2 AST 54 H ALT 29 Alkaline Phosphatase 59 Total Protein 7.2 Albumin 4.4 Urine Color Urine Appearance Urine pH Ur Specific [place] Urine Protein Urine Glucose (UA) Urine Ketones Urine Blood Urine Nitrite Ur Leukocyte Esterase Urine RBC Urine WBC Ur Squamous Epith Cells Amorphous Sediment Urine Bacteria Hyaline Casts Urine Mucus Urine Test Salicylates Urine Opiates Screen Urine Fentanyl Screen Acetaminophen Ur Barbiturates Screen Ur Phencyclidine Scrn Ur Amphetamines Screen U Benzodiazepines Scrn Urine Cocaine Screen U Marijuana (THC) Screen Ethyl Alcohol COVID-19 ([facility]) COVID-19 Clin Com 06/02/21 06/02/21 06:38 11:21 MCV MCH MCHC RDW Plt Count MPV Immature Gran % (Auto) Neut % (Auto) Lymph % (Auto) [place] % (Auto) Eos % (Auto) Baso % (Auto) Lymph # (Auto) [place] # (Auto) Eos # (Auto) Baso # (Auto) Abs Immat Gran (auto) Absolute Neuts (auto) Absolute Nucleated RBC Nucleated RBC % (auto) PT INR Anion Gap Estim Creat Clear Calc Estimated GFR Random Glucose Calcium Total Bilirubin 0.7 0.8 Direct Bilirubin 0.2 0.3 AST 40 H 29 ALT 30 27 Alkaline Phosphatase 59 59 Total Protein 7.0 7.0 Albumin 4.2 4.3 Urine Color Urine Appearance Urine pH Ur Specific [place] Urine Protein Urine Glucose (UA) Urine Ketones Urine Blood Urine Nitrite Ur Leukocyte Esterase Urine RBC Urine WBC Ur Squamous Epith Cells Amorphous Sediment Urine Bacteria Hyaline Casts Urine Mucus Urine Test Salicylates Urine Opiates Screen Urine Fentanyl Screen Acetaminophen 49 H Ur Barbiturates Screen Ur Phencyclidine Scrn Ur Amphetamines Screen U Benzodiazepines Scrn Urine Cocaine Screen U Marijuana (THC) Screen Ethyl Alcohol COVID-19 ([facility]) COVID-19 Clin Com Assessment and Plan (1) Suicide attempt: Status: Acute (2) Overdose by acetaminophen: Status: Acute Plan 45-year-old female with history of depression presents to the hospital after suicidal attempt with Tylenol 1.? suicidal attempt -? overdose on Tylenol Initially Tylenol level was 135-subsequently repeated Tylenol level 49, LFTs -AST was elevated overnight but seems to be improved.she is currently stable,sitter at bedside Called-poison control: Recommended to repeat LFT, Tylenol level, PT INR 2 hours before completion of acetadote-which patient is needs to be complete until 20:00. d/w poison Control with results: lft's and pt/inr normal , tylenol <1 no further interventions recomended , will call n Seen by care team, patient needs to be seen by n -for possible inpatient psych 2.? severe depression - [facility] consult Patient is currently cannot sign against medical advice unless cleared by n. patient is medically cleared ,we will ask n to evaluate patient. ?DVT prophylaxis: Lovenox Quality Stroke Does the patient have a stroke diagnosis?: No VTE Prior VTE?: No VTE Risk Level:: Medical - moderate - high VTE Device Contraindication: Treatment Not Indicated VTE Drug Contraindication: N/A - Med Ordered
--- NOTE | 2021-06-02 16:58 | PC.NURSE ---
This RN had a discussion with pt. Pt does not want phone calls from Alvaro Jordan or Rashid. Pt will let staff know when she is willing to take phone calls.
--- NOTE | 2021-06-02 17:29 | PM.DS ---
DS: Providers Provider Date of Service: 06/02/21 Date of admission: 06/01/21 23:05 Primary care physician: None Physician Consults: 06/01/21 21:28 BHN [Consult to Crisis] Stat Reason for consultation: si 06/02/21 06:43 Consult to Psychiatry Routine Consulting Provider: Zonia Sol Reason for consultation: suicide attempt Has provider been notified: No 06/02/21 12:07 Consult to Gastroenterology Routine Consulting Provider: [facility] Reason for consultation: tylenol overdose /mild elevation lft's Has provider been notified: No DS: Diagnosis Discharge Diagnosis (1) Overdose by acetaminophen: Status: Acute (2) Depression: Status: Acute (3) Suicide attempt: Status: Acute DS: Summary Hospital Course Hospital Course: 45-year-old female with past medical history of depression presents to the hospital after suicidal attempt with Tylenol.? Patient reports that she ingested more than 20 pills of? Tylenol p.m. in attempt to kill herself.? Patient at this time reports remorse and does not feel like she wants to hurt herself anymore.? She denies any abdominal pain but reports nausea, no chest pain, no palpitations, no headache change in vision, no dizziness.? No urinary symptoms and no lower extremity edema.? No numbness tingling or weakness.? ?on arrival to the ED patient with dynamic least stable ?labs unremarkable, no abnormal LFTs at this time Poison control contacted,? patient started on acetylcysteine,? recommendation was to repeat labs frequently ?suicide watch? place in patient room, and patient will be admitted for further management. Hospital course: Patient came to the hospital because of Tylenol overdose, severe depression with suicidal attempt with Tylenol. Patient was given N acetylcystene : Completed, LFT, Tylenol level PT INR seems fine. Discussed with poison control-no further intervention recommended. Patient going to psych floor for further is management of severe depression/SI. Above was discussed with psych provider in detail length. Above management discussed with the patient in detail length she understand and in agreement with the above plan, time spent 50 minutes and 50% time spent on counseling. Significant findings: As above. Procedures performed: None. Treatment and response: As above. Complications: None. Time Spent with Patient Time attestation: Total time spent providing and/or coordinating discharge services: Discharge coordination time: Greater than 30 minutes Quality: Stroke Does the patient have a stroke diagnosis?: No Physical Exam Vital Signs: Vital Signs: Last Vital Signs Temp 97.9 F 06/02/21 15:52 Pulse 77 06/02/21 15:52 Resp 16 06/02/21 15:52 BP 129/64 06/02/21 15:52 Pulse Ox 98 06/02/21 15:52 BMI result Body Mass Index 22.4 Appearance: Alert.? Oriented X3.? not in distress.? Eyes: Pupils equal, round and reactive to light.? Sclera nonicteric.? ENT: Pharynx normal.? Moist mucous membranes. cvs: rrr, [id number] , no murmur res: clear to auscultation ,no rhonchii or wheezing abd: no rebound or guarding ,nt, bs present. ext pulses present , no cyanosis. neuro: axo3 , nonfocal. psych -seems anxious DS: Data Data Completed and Pending Labs on day of discharge: Laboratory Results - last 24 hr 06/01/21 06/01/21 06/01/21 21:29 21:35 21:35 WBC 10.1 RBC 4.39 Hgb 13.7 Hct 41.5 MCV 94.5 MCH 31.2 MCHC 33.0 RDW 12.6 Plt Count 225 MPV 9.7 Immature Gran % (Auto) 0.2 Neut % (Auto) 70.6 Lymph % (Auto) 21.9 [place] % (Auto) 6.5 Eos % (Auto) 0.5 Baso % (Auto) 0.3 Lymph # (Auto) 2.2 [place] # (Auto) 0.7 Eos # (Auto) 0.1 Baso # (Auto) 0.0 Abs Immat Gran (auto) 0.02 Absolute Neuts (auto) 7.1 Absolute Nucleated RBC 0.000 Nucleated RBC % (auto) 0.0 PT INR Sodium 140 Potassium 4.1 Chloride 104 Carbon Dioxide 27 Anion Gap 13 BUN 14 Creatinine 0.86 Estim Creat Clear Calc 74.3 Estimated GFR > 60 Random Glucose 116 H Calcium 9.6 Total Bilirubin 0.4 Direct Bilirubin 0.2 AST 16 ALT 10 Alkaline Phosphatase 64 Total Protein 7.8 Albumin 4.8 Urine Color Urine Appearance Urine pH Ur Specific [place] Urine Protein Urine Glucose (UA) Urine Ketones Urine Blood Urine Nitrite Ur Leukocyte Esterase Urine RBC Urine WBC Ur Squamous Epith Cells Amorphous Sediment Urine Bacteria Hyaline Casts Urine Mucus Urine Test Salicylates < 5.0 L Urine Opiates Screen Urine Fentanyl Screen Acetaminophen 153 H* Ur Barbiturates Screen Ur Phencyclidine Scrn Ur Amphetamines Screen U Benzodiazepines Scrn Urine Cocaine Screen U Marijuana (THC) Screen Ethyl Alcohol COVID-19 ([facility]) Negative COVID-19 Clin Com See Note 06/01/21 06/01/21 06/01/21 21:35 22:12 22:12 WBC RBC Hgb Hct MCV MCH MCHC RDW Plt Count MPV Immature Gran % (Auto) Neut % (Auto) Lymph % (Auto) [place] % (Auto) Eos % (Auto) Baso % (Auto) Lymph # (Auto) [place] # (Auto) Eos # (Auto) Baso # (Auto) Abs Immat Gran (auto) Absolute Neuts (auto) Absolute Nucleated RBC Nucleated RBC % (auto) PT INR Sodium Potassium Chloride Carbon Dioxide Anion Gap BUN Creatinine Estim Creat Clear Calc Estimated GFR Random Glucose Calcium Total Bilirubin Direct Bilirubin AST ALT Alkaline Phosphatase Total Protein Albumin Urine Color YELLOW Urine Appearance CLEAR Urine pH 5.5 Ur Specific [place] >= 1.030 H Urine Protein 1+ H Urine Glucose (UA) NEG Urine Ketones 15 Urine Blood NEG Urine Nitrite NEG Ur Leukocyte Esterase NEG Urine RBC 0-2 Urine WBC 0 Ur Squamous Epith Cells 2+ Amorphous Sediment 2+ Urine Bacteria NONE Hyaline Casts 0-2 Urine Mucus 4+ Urine Test NEGATIVE Salicylates Urine Opiates Screen Urine Fentanyl Screen Acetaminophen Ur Barbiturates Screen Ur Phencyclidine Scrn Ur Amphetamines Screen U Benzodiazepines Scrn Urine Cocaine Screen U Marijuana (THC) Screen Ethyl Alcohol < 10 COVID-19 ([facility]) COVID-19 Clin Com 06/01/21 06/01/21 06/01/21 22:12 23:00 23:34 WBC RBC Hgb Hct MCV MCH MCHC RDW Plt Count MPV Immature Gran % (Auto) Neut % (Auto) Lymph % (Auto) [place] % (Auto) Eos % (Auto) Baso % (Auto) Lymph # (Auto) [place] # (Auto) Eos # (Auto) Baso # (Auto) Abs Immat Gran (auto) Absolute Neuts (auto) Absolute Nucleated RBC Nucleated RBC % (auto) PT 11.3 INR 1.0 Sodium Potassium Chloride Carbon Dioxide Anion Gap BUN Creatinine Estim Creat Clear Calc Estimated GFR Random Glucose Calcium Total Bilirubin 0.4 Direct Bilirubin 0.2 AST 15 ALT 10 Alkaline Phosphatase 62 Total Protein 7.3 Albumin 4.5 Urine Color Urine Appearance Urine pH Ur Specific [place] Urine Protein Urine Glucose (UA) Urine Ketones Urine Blood Urine Nitrite Ur Leukocyte Esterase Urine RBC Urine WBC Ur Squamous Epith Cells Amorphous Sediment Urine Bacteria Hyaline Casts Urine Mucus Urine Test Salicylates Urine Opiates Screen Not Detected Urine Fentanyl Screen Not Detected Acetaminophen Ur Barbiturates Screen Not Detected Ur Phencyclidine Scrn Not Detected Ur Amphetamines Screen Not Detected U Benzodiazepines Scrn Not Detected Urine Cocaine Screen Not Detected U Marijuana (THC) Screen POSITIVE H Ethyl Alcohol COVID-19 (CHIKA) COVID-19 [employer] Com 06/02/21 06/02/21 06/02/21 03:00 06:38 06:38 WBC 8.8 RBC 4.35 Hgb 13.5 Hct 40.4 MCV 92.9 MCH 31.0 MCHC 33.4 RDW 12.6 Plt Count 211 MPV 9.5 Immature Gran % (Auto) 0.2 Neut % (Auto) 76.8 H Lymph % (Auto) 16.3 L [place] % (Auto) 6.6 Eos % (Auto) 0.0 Baso % (Auto) 0.1 Lymph # (Auto) 1.4 [place] # (Auto) 0.6 Eos # (Auto) 0.0 Baso # (Auto) 0.0 Abs Immat Gran (auto) 0.02 Absolute Neuts (auto) 6.7 Absolute Nucleated RBC 0.000 Nucleated RBC % (auto) 0.0 PT INR Sodium 138 Potassium 3.7 Chloride 106 Carbon Dioxide 23 Anion Gap 13 BUN 11 Creatinine 0.70 Estim Creat Clear Calc 91.3 Estimated GFR > 60 Random Glucose 122 H Calcium 9.0 D Total Bilirubin 0.6 Direct Bilirubin 0.2 AST 54 H ALT 29 Alkaline Phosphatase 59 Total Protein 7.2 Albumin 4.4 Urine Color Urine Appearance Urine pH Ur Specific [place] Urine Protein Urine Glucose (UA) Urine Ketones Urine Blood Urine Nitrite Ur Leukocyte Esterase Urine RBC Urine WBC Ur Squamous Epith Cells Amorphous Sediment Urine Bacteria Hyaline Casts Urine Mucus Urine Test Salicylates Urine Opiates Screen Urine Fentanyl Screen Acetaminophen Ur Barbiturates Screen Ur Phencyclidine Scrn Ur Amphetamines Screen U Benzodiazepines Scrn Urine Cocaine Screen U Marijuana (THC) Screen Ethyl Alcohol COVID-19 ([facility]) COVID-19 Clin Com 06/02/21 06/02/21 06:38 11:21 WBC RBC Hgb Hct MCV MCH MCHC RDW Plt Count MPV Immature Gran % (Auto) Neut % (Auto) Lymph % (Auto) [place] % (Auto) Eos % (Auto) Baso % (Auto) Lymph # (Auto) [place] # (Auto) Eos # (Auto) Baso # (Auto) Abs Immat Gran (auto) Absolute Neuts (auto) Absolute Nucleated RBC Nucleated RBC % (auto) PT INR Sodium Potassium Chloride Carbon Dioxide Anion Gap BUN Creatinine Estim Creat Clear Calc Estimated GFR Random Glucose Calcium Total Bilirubin 0.7 0.8 Direct Bilirubin 0.2 0.3 AST 40 H 29 ALT 30 27 Alkaline Phosphatase 59 59 Total Protein 7.0 7.0 Albumin 4.2 4.3 Urine Color Urine Appearance Urine pH Ur Specific [place] Urine Protein Urine Glucose (UA) Urine Ketones Urine Blood Urine Nitrite Ur Leukocyte Esterase Urine RBC Urine WBC Ur Squamous Epith Cells Amorphous Sediment Urine Bacteria Hyaline Casts Urine Mucus Urine Test Salicylates Urine Opiates Screen Urine Fentanyl Screen Acetaminophen 49 H Ur Barbiturates Screen Ur Phencyclidine Scrn Ur Amphetamines Screen U Benzodiazepines Scrn Urine Cocaine Screen U Marijuana (THC) Screen Ethyl Alcohol COVID-19 ([facility]) COVID-19 Clin Com Discharge Plan Discharge Discharge Medications: No Action No Known Home Meds 0RF Discharge Orders: Discharge Order (Routine); Ordered 06/03/21 Ordered By: Ricardo Jimenes
[2021-06-02] MEDS: LORazepam 0.5 MG TABLET PO (17:51)
[2021-06-02 18:05] VITALS: BP 131/48; PULSE 70; RESP 10; TEMP 36.8; O2SAT 99
[2021-06-02 18:15] LABS: INTERNATIONAL NORM RATIO 1.1 (0.9-1.1); Prothrombin Time 12.5 SEC (9.9-13.0)
[2021-06-02 18:24] LABS: Acetaminophen LAB < 1 mcg/mL (<30); Alanine Aminotransferase 25 U/L (0-31); Albumin Level 4.5 g/dL (3.5-5.0); Alkaline Phosphatase 64 U/L (39-117); Aspartate Amino Transferase 24 U/L (5-31); Bilirubin Direct 0.3 mg/dL (0.0-0.5); Bilirubin Total 0.8 mg/dL (0.0-1.0); Total Protein 7.5 g/dL (6.5-8.0)
[2021-06-02 23:38] VITALS: BP 111/61; PULSE 70; RESP 18; TEMP 37.1; O2SAT 96
[2021-06-03 01:55] VITALS: BP 112/61
[2021-06-03 06:55] VITALS: BP 115/64; PULSE 77; RESP 19; TEMP 36.7; O2SAT 99
--- NOTE | 2021-06-03 07:36 | PC.NURSE ---
Pt received from manager shift: Pt AOX4 and offers no complaints. NSR to sinu tach noted with lungs clear. Pt abd soft and non-tender. Pt admitted for intensional SI act via tylenol OD. 1:1 sitter remains at bedside. Pt at present- calm and cooperative.
[2021-06-03] MEDS: Nicotine 21 MG PATCH.TD24 TRANSDERMA (08:00)
--- NOTE | 2021-06-03 09:21 | MHC.CARE ---
Pt will be admitted to today.
[2021-06-03 10:37] VITALS: BP 139/99; PULSE 100; RESP 17; O2SAT 99
--- NOTE | 2021-06-03 12:11 | MHC.CM.PN ---
Received notification from Dr Jimenes that patient will be discharged from [facility] and transferred to [facility] inpatient psych.
[2021-06-03 15:01] VITALS: BP 128/87; PULSE 96; RESP 18; O2SAT 99
--- NOTE | 2021-06-03 16:18 | PC.NURSE ---
1400: Report given to M5 RN by [facility] RN Ryan. [facility] states no staff available to transport pt to unit, and for [facility] to be called. [facility] called and states they would be over for assistance, by never arrived. Pending transport for over 2 hours. When called back around 1500, [facility] states they are in handoff report and cannot transport pt. extermination supervisor Airam made aware, jayda since 1:1 sitter's shift ends at 1500. 1625: M5 RN now present at bedside for transport up to M[facility], explaining process to pt.
== END 2021-06-03 16:56 | DRG 812 ==
LOC: HO.ED 23:11 → HO.EDOVER 23:22
PROVIDERS: Emergency Medicine Emergency Medical Services; Physician Assistant Medical; Admitting Provider Internal Medicine; Emergency Provider Internal Medicine; Visit Provider Internal Medicine
DX: T39.1X1A Poisoning by 4-Aminophenol derivatives, accidental (unintentional), initial encounter (principal); R45.851 Suicidal ideations; Z20.822 Contact with and (suspected) exposure to COVID-19; F17.210 Nicotine dependence, cigarettes, uncomplicated; Z71.6 Tobacco abuse counseling; Z79.899 Other long term (current) drug therapy
CPT/HCPCS: 36415; 80048; 80076; 80143; 80179; 80307; 81001; 81025; 82077; 85025; 85610; 87635; 93005; 96374; 99285; J0132; J2405

== ENCOUNTER 2021-06-03 16:57 | Inpatient (IN) | payer OTHER, SELFPAY ==
[2021-06-03 17:33] VITALS: BMI 21.9
[2021-06-03 18:00] VITALS: BP 142/89; PULSE 68; RESP 16; TEMP 36; O2SAT 99
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
[2021-06-03] MEDS: traZODone HCL 50 MG TABLET PO (21:19)
[2021-06-03] MEDS: hydrOXYzine HCL 25 MG TABLET PO (21:19)
[2021-06-03] MEDS: cloNIDine HCL 0.1 MG TABLET PO (21:19)
[2021-06-04 08:48] VITALS: BP 96/69; PULSE 82; TEMP 37.1
[2021-06-04 09:06] LABS: Free T4 (Free Thyroxine) 1.28 ng/dL (0.71-1.85); Thyroid Stimulating Hormone 0.74 uIU/mL (0.32-4.0)
[2021-06-04] MEDS: FLUoxetine HCl Oral Solution 20 MG/5 ML SOLUTION PO (09:09)
[2021-06-04] MEDS: hydrOXYzine HCL 25 MG TABLET PO (09:09)
[2021-06-04] MEDS: Nicotine 21 MG PATCH.TD24 TRANSDERMA (09:09)
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
[2021-06-04 18:00] VITALS: BP 118/80; PULSE 126; RESP 16
[2021-06-04] MEDS: cloNIDine HCL 0.1 MG TABLET PO (20:19)
[2021-06-04] MEDS: traZODone HCL 50 MG TABLET PO (20:19)
[2021-06-05 06:05] VITALS: BP 114/67; PULSE 82; RESP 17; TEMP 36.1; O2SAT 99
[2021-06-05] MEDS: FLUoxetine HCl Oral Solution 20 MG/5 ML SOLUTION PO (08:36)
[2021-06-05] MEDS: Nicotine 21 MG PATCH.TD24 TRANSDERMA (08:36)
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
[2021-06-05 21:30] VITALS: BP 117/61; PULSE 114; TEMP 36
[2021-06-05] MEDS: LORazepam 0.5 MG TABLET PO (21:55)
[2021-06-05] MEDS: cloNIDine HCL 0.1 MG TABLET PO (21:55)
[2021-06-05] MEDS: QUEtiapine Fumarate 25 MG TABLET PO (21:56)
[2021-06-05] MEDS: traZODone HCL 50 MG TABLET PO (21:56)
[2021-06-06 04:39] LABS: Vitamin B12 434 pg/mL (200-900)
[2021-06-06 06:00] VITALS: BP 112/72; PULSE 104; RESP 18; TEMP 36.9; O2SAT 99
[2021-06-06] MEDS: Nicotine 21 MG PATCH.TD24 TRANSDERMA (08:56)
[2021-06-06] MEDS: FLUoxetine HCl Oral Solution 20 MG/5 ML SOLUTION PO (08:57)
[2021-06-06 15:50] VITALS: BMI 21.9
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
[2021-06-06] MEDS: LORazepam 0.5 MG TABLET PO (17:47)
[2021-06-06 18:50] VITALS: BP 131/75; PULSE 110; RESP 17; TEMP 36.8; O2SAT 100
[2021-06-06] MEDS: cloNIDine HCL 0.1 MG TABLET PO (21:02)
[2021-06-06] MEDS: traZODone HCL 50 MG TABLET PO (21:02)
[2021-06-06] MEDS: QUEtiapine Fumarate 25 MG TABLET PO (21:02)
[2021-06-06] MEDS: Milk of Magnesia 30 ML ORAL.SUSP PO (21:51)
[2021-06-07 06:00] VITALS: BP 116/64; PULSE 106; RESP 18; TEMP 36.7; O2SAT 99
[2021-06-07] MEDS: FLUoxetine HCl Oral Solution 20 MG/5 ML SOLUTION PO (08:24)
[2021-06-07] MEDS: Nicotine 21 MG PATCH.TD24 TRANSDERMA (08:24)
[2021-06-07] MEDS: hydrOXYzine HCL 25 MG TABLET PO (12:45)
[2021-06-07] MEDS: LORazepam 0.5 MG TABLET PO (12:45)
[2021-06-07 16:25] VITALS: BP 109/77; PULSE 126
[2021-06-07 20:15] VITALS: BP 118/84; PULSE 106
[2021-06-07] MEDS: traZODone HCL 50 MG TABLET PO (20:29)
[2021-06-07] MEDS: QUEtiapine Fumarate 25 MG TABLET PO (20:29)
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
[2021-06-07] MEDS: cloNIDine HCL 0.1 MG TABLET PO (20:30)
[2021-06-07] MEDS: Mirtazapine 7.5 MG TABLET PO (20:30)
[2021-06-08 03:57] LABS: HIV AB/AG Nonreactive (Nonreactive); HIV Num 1 0.06 S/CO (0.00-0.99)
[2021-06-08 06:00] VITALS: BP 119/82; PULSE 102; RESP 18; TEMP 36.6; O2SAT 99
[2021-06-08] MEDS: Multivitamin TABLET 1 TAB PO (08:07)
[2021-06-08] MEDS: Nicotine 21 MG PATCH.TD24 TRANSDERMA (08:07)
[2021-06-08] MEDS: Cholecalciferol (Vitamin D3) 10 MCG TABLET PO (08:07)
[2021-06-08] MEDS: FLUoxetine HCl Oral Solution 20 MG/5 ML SOLUTION PO (08:07)
[2021-06-08 12:12] VITALS: BP 131/78; PULSE 93; RESP 16; O2SAT 99
[2021-06-08] MEDS: LORazepam 0.5 MG TABLET PO ×2 (15:57→19:59)
[2021-06-08 18:00] VITALS: BP 128/81; PULSE 95; TEMP 36.8; O2SAT 99
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
[2021-06-08] MEDS: QUEtiapine Fumarate 25 MG TABLET PO (19:59)
[2021-06-08] MEDS: cloNIDine HCL 0.1 MG TABLET PO (19:59)
[2021-06-08] MEDS: Mirtazapine 15 MG TABLET PO (20:01)
[2021-06-09 06:00] VITALS: BP 119/68; PULSE 92; TEMP 36.3; O2SAT 98
[2021-06-09 07:00] VITALS: BMI 22.2
[2021-06-09] MEDS: FLUoxetine HCl Oral Solution 20 MG/5 ML SOLUTION PO (10:19)
[2021-06-09] MEDS: Multivitamin TABLET 1 TAB PO (10:19)
[2021-06-09] MEDS: Cholecalciferol (Vitamin D3) 10 MCG TABLET PO (10:19)
[2021-06-09] MEDS: Nicotine 21 MG PATCH.TD24 TRANSDERMA (10:20)
[2021-06-09 18:45] VITALS: BP 117/71; PULSE 78; RESP 16; TEMP 36; O2SAT 100
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
[2021-06-09] MEDS: Mirtazapine 15 MG TABLET PO (20:22)
[2021-06-09] MEDS: QUEtiapine Fumarate 25 MG TABLET PO (20:22)
[2021-06-09] MEDS: cloNIDine HCL 0.1 MG TABLET PO (20:22)
[2021-06-09] MEDS: traZODone HCL 50 MG TABLET PO (20:23)
[2021-06-10 06:00] VITALS: BP 119/71; PULSE 75; RESP 18; TEMP 36.4; O2SAT 100
[2021-06-10] MEDS: Nicotine 21 MG PATCH.TD24 TRANSDERMA (09:01)
[2021-06-10] MEDS: FLUoxetine HCl 20 MG CAPSULE PO (09:01)
[2021-06-10] MEDS: Cholecalciferol (Vitamin D3) 10 MCG TABLET PO (09:01)
[2021-06-10] MEDS: Multivitamin TABLET 1 TAB PO (09:01)
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
[2021-06-10 19:40] VITALS: BP 127/83; PULSE 80
[2021-06-10] MEDS: cloNIDine HCL 0.1 MG TABLET PO (19:55)
[2021-06-10] MEDS: QUEtiapine Fumarate 25 MG TABLET PO (19:55)
[2021-06-10] MEDS: Mirtazapine 15 MG TABLET PO (19:55)
[2021-06-10] MEDS: traZODone HCL 50 MG TABLET PO (21:20)
[2021-06-11 05:58] VITALS: BP 120/74; PULSE 88; TEMP 36.7; O2SAT 98
[2021-06-11] MEDS: FLUoxetine HCl 20 MG CAPSULE PO (09:04)
[2021-06-11] MEDS: Multivitamin TABLET 1 TAB PO (09:04)
[2021-06-11] MEDS: Cholecalciferol (Vitamin D3) 10 MCG TABLET PO (09:04)
[2021-06-11] MEDS: Nicotine 21 MG PATCH.TD24 TRANSDERMA (09:05)
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
[2021-06-11 19:50] VITALS: BP 125/66; PULSE 78
[2021-06-11] MEDS: cloNIDine HCL 0.1 MG TABLET PO (20:03)
[2021-06-11] MEDS: Mirtazapine 15 MG TABLET PO (20:03)
[2021-06-11] MEDS: QUEtiapine Fumarate 25 MG TABLET PO (20:03)
[2021-06-11] MEDS: traZODone HCL 50 MG TABLET PO (20:04)
[2021-06-12 06:00] VITALS: BP 120/82; PULSE 74; TEMP 36.4; O2SAT 96
[2021-06-12] MEDS: FLUoxetine HCl 20 MG CAPSULE PO (08:41)
[2021-06-12] MEDS: Cholecalciferol (Vitamin D3) 10 MCG TABLET PO (08:41)
[2021-06-12] MEDS: Multivitamin TABLET 1 TAB PO (08:41)
[2021-06-12] MEDS: Nicotine 21 MG PATCH.TD24 TRANSDERMA (09:06)
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
[2021-06-12 20:00] VITALS: BP 127/77; PULSE 88
[2021-06-12] MEDS: cloNIDine HCL 0.1 MG TABLET PO (20:12)
[2021-06-12] MEDS: Mirtazapine 15 MG TABLET PO (20:12)
[2021-06-12] MEDS: QUEtiapine Fumarate 25 MG TABLET PO (20:12)
[2021-06-12] MEDS: traZODone HCL 50 MG TABLET PO (20:16)
[2021-06-13 06:00] VITALS: BP 122/70; PULSE 78; RESP 18; TEMP 36.4; O2SAT 97
[2021-06-13] MEDS: Multivitamin TABLET 1 TAB PO (08:10)
[2021-06-13] MEDS: Cholecalciferol (Vitamin D3) 10 MCG TABLET PO (08:10)
[2021-06-13] MEDS: Nicotine 21 MG PATCH.TD24 TRANSDERMA (08:10)
[2021-06-13] MEDS: FLUoxetine HCl 20 MG CAPSULE PO (08:10)
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
== END 2021-06-13 13:17 | disposition other institution (70) | DRG 751 ==
PROVIDERS: Clinical Nurse Specialist Psychiatric/Mental Health, Adult; Registered Nurse; Admitting Provider Psychiatry & Neurology Psychiatry; Visit Provider Psychiatry & Neurology Psychiatry
DX: F33.1 Major depressive disorder, recurrent, moderate (principal); R45.851 Suicidal ideations; F17.210 Nicotine dependence, cigarettes, uncomplicated; Z71.6 Tobacco abuse counseling; F41.1 Generalized anxiety disorder; F43.10 Post-traumatic stress disorder, unspecified; Z91.51 Personal history of suicidal behavior; Z79.899 Other long term (current) drug therapy
CPT/HCPCS: 36415; 82607; 82746; 83735; 84439; 84443; 87389

== ENCOUNTER 2023-07-21 09:03 | Emergency (ER) | payer MEDICAID, SELFPAY ==
[2023-07-21 09:18] VITALS: BP 128/82; PULSE 73; RESP 16; TEMP 36.5; O2SAT 100; BMI 23.3
--- NOTE | 2023-07-21 09:31 | ED_ITS ---
HPI - Extremity Problem General Chief complaint: Extremity Injury, Upper Stated complaint: l shoulder pain Time Seen by Provider: 07/21/23 09:25 Source: patient Mode of arrival: ambulatory Limitations: no limitations History of Present Illness HPI Narrative: Patient is a 47-year-old right-hand dominant female presenting to the emergency department with complaint of left shoulder pain since yesterday. States that pain was present when she woke and has persisted. 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 Reports she was also having some left-sided back pain earlier in the week. Reports pain is worse with abduction of arm, and had limited range of motion due to pain. She denies fall or other trauma. Denies any chest pain, palpitations, dyspnea. MD Complaint: joint pain Onset (ago): day(s) Pain Consistency: constant Location: left and upper extremity Quality: aching Relieving factors: rest Exacerbating factors: range of motion Associated symptoms: denies other symptoms Related Data Previous Rx's ?Medication ?Instructions ?Recorded cholecalciferol (vitamin D3) 10 10 mcg PO DAILY #30 tabs 06/13/21 mcg (400 unit) tablet (Vitamin D3) clonidine HCl 0.1 mg tablet 0.1 mg PO BEDTIME #15 tabs 06/13/21 fluoxetine 20 mg capsule 20 mg PO DAILY #15 caps 06/13/21 mirtazapine 15 mg tablet 15 mg PO BEDTIME #15 tabs 06/13/21 multivitamin (Daily-Amalia tablet) 1 tab PO DAILY #30 tabs 06/13/21 nicotine 21 mg/24 hr daily 21 mg transdermal DAILY #30 ea 06/13/21 transdermal patch quetiapine 25 mg tablet 25 mg PO BEDTIME #15 tabs 06/13/21 cyclobenzaprine 5 mg tablet 5 mg PO TID PRN muscle spasm #10 07/21/23 tabs lidocaine 5 % topical patch 1 patch topical DAILY #15 ea 07/21/23 Allergies Allergy/AdvReac Type Severity Reaction Status Date / Time No Known Allergies Allergy Verified 07/21/23 09:21 Review of Systems Review of Systems: As per HPI. Yes all other systems are reviewed and are negative Constitutional: Constitutional: Reports as per HPI [facility] Past Medical History Medical History (Updated 07/21/23 @ 10:17 by Rossana Russo NP) Depression Surgical History (Updated 06/02/21 @ 06:48 by Samantha Feliz MD) No pertinent past surgical history Family History Family History (Updated 06/02/21 @ 06:48 by Samatnha Fleiz MD) Other No family history of coronary artery disease Social History Social History (Updated 06/02/21 @ 06:48 by Samantha Feliz MD) Household Members: Family Household Members Other:: Ex- and son Housing: Apartment Do you presently have visiting nurse or other home services: No Alcohol intake: current Patient Tobacco Use Status: Current everyday Tobacco user Tobacco use type: Cigarette Cigarette Packs Per Day: 2 Cigarettes Per Day: 40.0 Years Smoked: 31 Smoked in Last 30 Days: Yes e-Cigarette/Vaping Use: Currently Using Second Hand Smoke Exposure: No Use of substances other than those prescribed or required for medical reasons: Yes Substance Use Type: Marijuana Substance Use Frequency: Daily Advance Directives: No Advance Directives Information Provided: No Patient : No service: No Sexual orientation: Straight/Heterosexual Physical Exam Vital Signs: Vital Signs: Last Vital Signs Temp 97.7 F 07/21/23 09:18 Pulse 73 07/21/23 09:18 Resp 16 07/21/23 09:18 BP 128/82 07/21/23 09:18 Pulse Ox 100 07/21/23 09:18 O2 Del Method Room Air 07/21/23 09:18 BMI result Body Mass Index 23.3 Vital signs have been reviewed and appear to be correct. Blood pressure normal. Heart rate normal. Respiratory rate normal. Temperature normal. Oxygen saturation normal. Const: General: cooperative, healthy appearing and no acute distress Orientation/consciousness: oriented to person, oriented to place, oriented to time and patient oriented x3 Limitations: no limitations HEENT: Head: Yes normocephalic and Yes atraumatic Ears: external ears nor mal General nose exam: Normal external nose present Face and sinus: Yes face symmetric Mouth: oropharynx normal and moist mucous membranes Throat: Yes uvula midline Eyes: Pupils: Equal, round and reactive pupils present Neck: Neck: Yes normal visual inspection and Yes supple Resp: Effort & Inspection: normal respiratory effort and able to speak in complete sentences Auscultation: clear to auscultation bilaterally Cardio: Rate: regular rate Rhythm: regular rhythm Heart sounds: S1 normal heart sound present and S2 normal heart sound present GI: Palpation (GI): Soft to palpation and nontender Auscultation: normoactive bowel sounds : General: Yes no CVA tenderness Back/Spine/Pelvis: Back: no CVA tenderness Skin: General skin exam: elasticity normal and turgor normal Neuro: General: oriented to person, oriented to place, oriented to time, patient oriented x3, moves all extremities, no focal motor deficits and CN's II- XI intact bilaterally Cranial nerves: Yes Equal, round and reactive pupils present Cognition (Neuro): normal cognition Extrem: General: Yes full ROM, Yes normal exam except as noted, Yes no pedal edema and Yes no calf tenderness Left upper extremity: shoulder/upper arm Details: inspection abnormal, swelling Location: of the proximal humerus Location: laterally, axillary nerve sensory function normal and abnormal ROM Details: with range as follows (abduction to 90 degrees) and hand Details: vascular exam Details: radial pulse present Psych: Mental Status: mental status grossly normal Affect: normal affect Thought process: Normal thought process present Medical Decision Making Medical Decision Making [facility] Narrative: Patient is a 47-year-old right-hand dominant female presenting to the emergency department with complaint of left shoulder pain since yesterday. On exam patient is awake, A+Ox3, VS WNL, afebrile, normal neurological exam without focal deficits, physical exam findings as above. Given reported symptoms and physical exam findings, initial differential includes shoulder strain, sprain, rotator cuff strain. Do not suspect fracture. Will treat patient with course of cyclobenzaprine and lidocaine patches, advised to alternate ibuprofen and tylenol. Will refer to ortho for ongoing symptoms. Return precautions discussed at bedside. Patient verbalized understanding of and agreement with plan. Differential Diagnosis Differential Diagnoses: The differential diagnosis associated with the presentation includes As per [facility] External Record Review External record reviewed: Inpatient record, Office record and Outpatient record Prescription Management I considered prescription management with: Pain Medication and Other Discharge Plan Discharge Clinical Impression: Left shoulder strain Patient Disposition: Home, Self-Care Instructions: Muscle Strain (DC), Rotator Cuff Injury (ED), Rotator Cuff Injury Exercises (DC) Additional Instructions: You were evaluated in the emergency department today for left shoulder pain. Your symptoms are likely due to a muscle strain. You are being prescribed a muscle relaxer which you can use every 8 hours as needed. You are being prescribed topical lidocaine patches which you can wear for up to 12 hours in a 24 hour period. Do not apply heat directly over the patches. We recommend that you take 600 mg of ibuprofen or 650 mg of Tylenol every 6 hours as needed for pain. If necessary, you can alternate these medications every 3 hours. Please follow-up with your primary care provider. If your symptoms persist beyond the next 1-2 weeks, please follow-up with orthopedics and call their office to schedule an appointment. Prescriptions: New cyclobenzaprine 5 mg tablet 5 mg PO TID PRN (Reason: muscle spasm) Qty: 10 0RF lidocaine 5 % adhesive patch,medicated 1 patch topical DAILY Qty: 15 0RF Rx Instructions: leave on most painful area for up to 12 hrs No Action multivitamin [Daily-Amalia] Tablet 1 tab PO DAILY Qty: 30 0RF quetiapine 25 mg Tablet 25 mg PO BEDTIME Qty: 15 1RF clonidine HCl 0.1 mg Tablet 0.1 mg PO BEDTIME Qty: 15 1RF Protocol: Hold for SBP< HOLD for SBP < : 90 nicotine 21 mg/24 hr Patch 24 Hour 21 mg transdermal DAILY Qty: 30 0RF mirtazapine 15 mg Tablet 15 mg PO BEDTIME Qty: 15 1RF fluoxetine 20 mg Capsule 20 mg PO DAILY Qty: 15 1RF cholecalciferol (vitamin D3) [Vitamin D3] 10 mcg (400 unit) Tablet 10 mcg PO DAILY Qty: 30 0RF Referrals: [facility] [place] Orthopedic Surgeons [Provider Group] Print Language: Turkmen
[2023-07-21 10:42] VITALS: BP 128/82; PULSE 73; RESP 16; TEMP 36.5; O2SAT 100
== END 2023-07-21 10:43 | disposition home or self-care (01) ==
PROVIDERS: Emergency Provider Emergency Medicine Emergency Medical Services
DX: S46.912A Strain of unspecified muscle, fascia and tendon at shoulder and upper arm level, left arm, initial encounter (principal); X58.XXXA Exposure to other specified factors, initial encounter; Y93.9 Activity, unspecified; Y92.9 Unspecified place or not applicable; Y99.8 Other external cause status
CPT/HCPCS: 99283; 99284

== ENCOUNTER 2024-01-08 10:43 | Emergency (ER) | payer MEDICAID, SELFPAY ==
[2024-01-08 11:05] VITALS: BP 158/87; PULSE 77; RESP 18; TEMP 36.6; O2SAT 100; BMI 22.7
--- NOTE | 2024-01-08 11:09 | ED.GENADULT ---
HPI - General Adult General Chief complaint: Back Pain/Injury Stated complaint: Lower back pain 1 week Time Seen by Provider: 01/08/24 11:09 Source: patient, RN notes reviewed and old records reviewed Mode of arrival: ambulatory Limitations: no limitations History of Present Illness ED Provider: Lonnie YBARRA narrative: 48-year-old female presents for evaluation of left lower back pain. Patient reports her pain is worse with walking. Her pain started 2 weeks ago. She denies any injury or heavy lifting She reports a history of back pain and pinched nerves Denies any numbness, tingling Her pain is an 8/10. Denies any GI or symptoms Related Data Previous Rx's ?Medication ?Instructions ?Recorded cholecalciferol (vitamin D3) 10 10 mcg PO DAILY #30 tabs 06/13/21 mcg (400 unit) tablet (Vitamin D3) clonidine HCl 0.1 mg tablet 0.1 mg PO BEDTIME #15 tabs 06/13/21 fluoxetine 20 mg capsule 20 mg PO DAILY #15 caps 06/13/21 mirtazapine 15 mg tablet 15 mg PO BEDTIME #15 tabs 06/13/21 multivitamin (Daily-Amalia tablet) 1 tab PO DAILY #30 tabs 06/13/21 nicotine 21 mg/24 hr daily 21 mg transdermal DAILY #30 ea 06/13/21 transdermal patch quetiapine 25 mg tablet 25 mg PO BEDTIME #15 tabs 06/13/21 cyclobenzaprine 5 mg tablet 5 mg PO TID PRN muscle spasm #10 07/21/23 tabs lidocaine 5 % topical patch 1 patch topical DAILY #15 ea 07/21/23 dexamethasone 4 mg tablet 4 mg PO BID #6 tabs 01/08/24 tramadol 50 mg tablet 50 mg PO Q8H PRN severe pain 01/08/24 (scale score 7-10) #15 tabs Allergies Allergy/AdvReac Type Severity Reaction Status Date / Time No Known Allergies Allergy Verified 01/08/24 11:06 Review of Systems Constitutional: Constitutional: Denies body ache(s), Denies chills, Denies fever(s) and Denies frequent falls Eyes: Eyes: Denies blurry vision ENT: Denies vertigo and Denies dizziness Cardiovascular: Cardiovascular: Denies chest pain and Denies dyspnea Respiratory: Respiratory: Denies cough and Denies dyspnea Gastrointestinal: Gastrointestinal: Denies abdominal pain, Denies nausea and Denies vomiting Genitourinary: Genitourinary: Denies dysuria Musculoskeletal: Musculoskeletal: Reports back pain, Denies arthralgias, Denies joint swelling and Reports radiating pain into limb Integumentary/Breasts: Skin/Breast: Denies rash Neurologic: Denies vertigo, Denies dizziness and Denies frequent falls PMF Past Medical History Medical History (Updated 01/08/24 @ 11:11 by Johnny Fleming) Depression Surgical History (Updated 06/02/21 @ 06:48 by Samantha Feliz MD) No pertinent past surgical history Family History Family History (Updated 06/02/21 @ 06:48 by Samantha Feliz MD) Other No family history of coronary artery disease Social History Social History (Updated 06/02/21 @ 06:48 by Samantha Feliz MD) Household Members: Family Household Members Other:: Ex- and son Housing: Apartment Do you presently have visiting nurse or other home services: No Alcohol intake: current Patient Tobacco Use Status: Current everyday Tobacco user Tobacco use type: Cigarette Cigarette Packs Per Day: 2 Cigarettes Per Day: 40.0 Years Smoked: 31 e-Cigarette/Vaping Use: Currently Using Second Hand Smoke Exposure: No Substance Use Type: Marijuana Advance Directives: No Advance Directives Information Provided: Yes Do you have a plan to hurt others: No Plan service: No Sexual orientation: Straight/Heterosexual Physical Exam ED Vital Signs: Vital Signs - 24 hr 01/08/24 11:05 01/08/24 11:21 Temperature 97.9 F 97.9 F Pulse Rate 77 77 Respiratory Rate 18 18 Blood Pressure 158/87 H 158/87 H Pulse Oximetry 100 100 Oxygen Delivery Method Room Air Room Air BMI result Body Mass Index 22.7 Const General: healthy appearing, comfortable, no acute distress, alert and awake Nutritional Appearance: well nourished Orientation/consciousness: patient oriented x3 HENMT Head: Yes normocephalic and Yes atraumatic Eyes Eyelids: Yes eyelids normal Conjunctivae: conjunctivae normal Sclerae: sclerae normal Corneas: corneas normal Pupils: Equal, round and reactive pupils present EOM: EOMs intact bilaterally Neck Neck: Yes full ROM Resp Effort & Inspection: normal respiratory effort, able to speak in complete sentences and not labored GI Inspection: No distended Palpation (GI): Soft to palpation, not firm, nontender, no guarding and not rigid Back/Spine/Pelvis Other: Tenderness to the left lumbar sacral region. Straight leg raise positive on left. No focal vertebral tenderness, no step-offs or deformities. Skin General skin exam: elasticity normal Neuro General: patient oriented x3 Cranial nerves: Yes Equal, round and reactive pupils present and Yes Bilaterally intact EOM present Cognition (Neuro): normal cognition Motor exam (neuro): 5/5 motor strength present throughout Extrem Other: Moving all extremities well without any obvious deformities Medical Decision Making Medical Decision Making MDM Narrative: 48-year-old female presents for evaluation of left lumbar back pain that radiates to her left leg, she has a history of sciatica. Her exam is reassuring. We will treat as sciatica. There was no trauma, no indication for imaging at this time. No warning signs for cauda equina syndrome Differential Diagnosis Differential Diagnoses: The differential diagnosis associated with the presentation includes Lumbar radiculopathy Sciatica Back pain Muscle spasms Disc herniation Discharge Plan Discharge Clinical Impression: Lumbar radiculopathy Patient Disposition: Home, Self-Care Instructions: Lumbar Radiculopathy (ED) Additional Instructions: Your pain is most likely related to a pinched nerve/muscle spasms Use ibuprofen/Tylenol for pain Take dexamethasone twice daily for the next 3 days You may use tramadol for more severe, breakthrough pain. This may make you a little bit sleepy, you may cut the pill in half Follow-up with your primary doctor, return for new or worsening symptoms Prescriptions: New dexamethasone 4 mg tablet 4 mg PO BID Qty: 6 0RF tramadol 50 mg tablet 50 mg PO Q8H PRN (Reason: severe pain (scale score 7-10)) Qty: 15 0RF No Action multivitamin [Daily-Amalia] Tablet 1 tab PO DAILY Qty: 30 0RF quetiapine 25 mg Tablet 25 mg PO BEDTIME Qty: 15 1RF clonidine HCl 0.1 mg Tablet 0.1 mg PO BEDTIME Qty: 15 1RF Protocol: Hold for SBP< HOLD for SBP < : 90 nicotine 21 mg/24 hr Patch 24 Hour 21 mg transdermal DAILY Qty: 30 0RF mirtazapine 15 mg Tablet 15 mg PO BEDTIME Qty: 15 1RF fluoxetine 20 mg Capsule 20 mg PO DAILY Qty: 15 1RF cholecalciferol (vitamin D3) [Vitamin D3] 10 mcg (400 unit) Tablet 10 mcg PO DAILY Qty: 30 0RF cyclobenzaprine 5 mg tablet 5 mg PO TID PRN (Reason: muscle spasm) Qty: 10 0RF lidocaine 5 % adhesive patch,medicated 1 patch topical DAILY Qty: 15 0RF Rx Instructions: leave on most painful area for up to 12 hrs Interventions: ED Discharge Assessment Last Done: 01/08/24 11:21 Discharge Date/Time: 01/08/24 11:21 Print Language: Romansh
[2024-01-08 11:21] VITALS: BP 158/87; PULSE 77; RESP 18; TEMP 36.6; O2SAT 100
== END 2024-01-08 11:21 | disposition home or self-care (01) ==
PROVIDERS: Emergency Provider Emergency Medicine
DX: M54.16 Radiculopathy, lumbar region (principal); M54.50 Low back pain, unspecified; F17.210 Nicotine dependence, cigarettes, uncomplicated
CPT/HCPCS: 99282; 99283

== ENCOUNTER 2024-04-27 09:09 | Emergency (ER) | payer MEDICAID, SELFPAY ==
[2024-04-27 09:15] VITALS: BP 117/70; PULSE 124; RESP 18; TEMP 37.1; O2SAT 95; BMI 23.5
[2024-04-27 09:33] LABS: MANUAL DIFF FLAG NO
[2024-04-27 09:35] LABS: Basophils Percent Auto 0.3 % (0-2); Hematocrit 41.8 % (37.0-47.0); Hemoglobin 14.3 g/dl (12.0-16.0); Imm Gran Abs Auto 0.01 X10*3/uL (0.00-0.03); Imm Gran Pct Auto 0.2 % (0.0-0.4); Lymphocytes Absolute Auto 0.4 X10*3/uL (1.2-4.9); Lymphocytes Percent Auto 5.4 % (20-40); Mean Corpuscular HGB Conc 34.2 g/dl (31.0-35.0); Mean Corpuscular Hemoglobin 31.2 pg (27.0-33.0); Mean Corpuscular Volume 91.1 fL (80.0-98.0); Mean Platelet Volume 9.9 fL (9.4-12.3); Monocytes Absolute Auto 0.6 X10*3/uL (0.1-1.2); Monocytes Percent Auto 9.6 % (2-11); Neutrophils Absolute Auto 5.5 x10*3/uL (2.0-8.3); Neutrophils Percent Auto 84.5 % (45-73); Platelet Count 169 X10*3/uL (160-400); Red Blood Count 4.59 X10*6/uL (4.20-5.50); Red Cell Distribution Width 12.1 % (11.0-16.0); White Blood Count 6.5 X10*3/uL (4.8-10.8)
--- NOTE | 2024-04-27 09:55 | ED_ITS ---
HPI - Nausea/Vomiting/Diarrhea General Chief complaint: Nausea/Vomiting/Diarrhea Stated complaint: not eating, vomiting Time Seen by Provider: 04/27/24 09:29 Source: patient and family Mode of arrival: ambulatory Limitations: no limitations History of Present Illness ED Provider: DR. Finney HPI Narrative: 48-year-old female came in for evaluation of epigastric pain and vomiting x3 days, patient is unable to tolerate p.o. intake with the persistent vomiting for the past 3 days, no sick contacts, no fever, no chills, no recent use of drugs or alcohol, no sick contacts, no exposure to a bad food. Never had intra-abdominal surgery in the past, last bowel movement was yesterday. Related Data Previous Rx's ?Medication ?Instructions ?Recorded cholecalciferol (vitamin D3) 10 10 mcg PO DAILY #30 tabs 06/13/21 mcg (400 unit) tablet (Vitamin D3) clonidine HCl 0.1 mg tablet 0.1 mg PO BEDTIME #15 tabs 06/13/21 fluoxetine 20 mg capsule 20 mg PO DAILY #15 caps 06/13/21 mirtazapine 15 mg tablet 15 mg PO BEDTIME #15 tabs 06/13/21 multivitamin (Daily-Amalia tablet) 1 tab PO DAILY #30 tabs 06/13/21 nicotine 21 mg/24 hr daily 21 mg transdermal DAILY #30 ea 06/13/21 transdermal patch quetiapine 25 mg tablet 25 mg PO BEDTIME #15 tabs 06/13/21 cyclobenzaprine 5 mg tablet 5 mg PO TID PRN muscle spasm #10 07/21/23 tabs lidocaine 5 % topical patch 1 patch topical DAILY #15 ea 07/21/23 dexamethasone 4 mg tablet 4 mg PO BID #6 tabs 01/08/24 tramadol 50 mg tablet 50 mg PO Q8H PRN severe pain 01/08/24 (scale score 7-10) #15 tabs ondansetron 4 mg disintegrating 4 mg PO Q8-12H PRN nausea and 04/27/24 tablet vomiting #7 tabs Allergies Allergy/AdvReac Type Severity Reaction Status Date / Time No Known Allergies Allergy Verified 04/27/24 09:16 Review of Systems 2 Review of Systems: All other systems are reviewed and are negative Constitutional: Reports as per HPI and Reports no additional constitutional complaints Eyes: Reports as per HPI and Reports no additional eye complaints Reports system reviewed and no additional complaints, except as documented Cardiovascular: Reports as per HPI and Reports no additional cardiovascular complaints Respiratory: Reports as per HPI and Reports no additional respiratory complaints Gastrointestinal: Reports as per HPI and Reports no additional gastrointestinal complaints Genitourinary: Reports no additional female genitourinary complaints Musculoskeletal: Reports no additional musculoskeletal complaints Skin/Breast: Reports system reviewed and no additional complaints, except as docu Psychiatric: Reports no additional psychiatric complaints Endocrine: Reports no additional endocrine complaints Hematologic/Lymphatic: Reports no additional hematologic/lymphatic complaints Allergic/Immunologic: Reports no additional allergic/immunologic complaints Reports system reviewed and no additional complaints, except as documented and Reports Abnormal speech present [facility] Past Medical History Medical History Depression Surgical History No pertinent past surgical history Family History Family History Other No family history of coronary artery disease Social History Social History Household Members: Family Household Members Other:: Ex- and son Housing: Apartment Do you presently have visiting nurse or other home services: No Alcohol intake: current Patient Tobacco Use Status: Current everyday Tobacco user Tobacco use type: Cigarette Cigarette Packs Per Day: 2 Cigarettes Per Day: 40.0 Years Smoked: 31 e-Cigarette/Vaping Use: Currently Using Second Hand Smoke Exposure: No Substance Use Type: Marijuana Advance Directives: No Advance Directives Information Provided: Yes service: No Sexual orientation: Straight/Heterosexual Physical Exam 2 Vital Signs: Vital Signs: Last Vital Signs Temp 99.9 F 04/27/24 12:14 Pulse 106 H 04/27/24 12:14 Resp 16 04/27/24 12:14 BP 130/72 04/27/24 12:14 Pulse Ox 97 04/27/24 12:14 O2 Del Method Room Air 04/27/24 12:14 BMI result Body Mass Index 23.5 Vital signs have been reviewed and appear to be correct. Blood pressure elevated. Heart rate elevated. Respiratory rate normal. Temperature normal. Oxygen saturation normal. Appearance: Alert. Oriented X3. No acute distress. Head: Normal external exam. Normocephalic. Atraumatic. No [place] signs noted. No raccoon eyes noted Eyes: PERRLA. EOMI. Conjunctiva and sclera normal. Eyelids normal. ENT: TM's Normal. Pharynx normal. Uvula midline. Moist mucous membranes. No trismus noted. No drooling noted. No muffled voice noted. Neck: Normal inspection. Neck supple. FROM. No adenopathy. Thyroid Normal. No meningeal signs. No neck mass noted. CVS: Normal heart rate and rhythm. Heart sound normal. No murmurs noted. Pulses normal throughout. Respiratory: No respiratory distress. Painless inspiration. Breath sounds normal. No wheezes/rales/rhonchi noted. Chest nontender. No accessory muscle usage noted or decreased air movement noted. Abdomen: Soft and nontender. Bowel sounds normal in all 4 quadrants. No distention noted. No organomegaly noted. No visible injury noted. Back: No CVA tenderness. Full range of motion noted. Skin: Skin warm and dry. Normal skin color. Normal skin turgor. No rashes/lesions/lacerations noted. Extremities: No lower extremity edema. Extremities exhibit normal range of motion. Extremities nontender. Neuro: Oriented X 3. Cranial nerve exam: II-XII are grossly intact No motor deficit. No sensory deficit. Reflexes normal. Course Reevaluation(s) Reevaluation #1: Patient feels better after IV hydration and was given Zofran, and Pepcid patient now feels better, able to tolerate p.o. intake patient was instructed to keep face mask at all times, frequent hand washes, social distance, self quarantine for 3-4 days. Time: 12:41 Medications Administered Discontinued Medications Generic Name Dose Route Start Last Admin Trade Name Freq PRN Reason Stop Dose Admin Al Hydroxide/Mg Hydroxide 30 ml 04/27/24 09:54 04/27/24 10:36 Magnesium Hydrox/Alum Hydrox 30 Ml Oral.Susp PO 04/27/24 09:55 30 ml ONCE ONE Administration Famotidine 20 mg 04/27/24 09:54 04/27/24 10:36 Famotidine/Pf 20 Mg/2 Ml Vial IVPUSH 04/27/24 09:55 20 mg ONCE ONE Administration Sodium Chloride 1,000 mls @ 999 mls/hr 04/27/24 09:54 04/27/24 11:35 Ns IV 04/27/24 10:54 Infused .Q1H1M ONE Infusion Ondansetron HCl 4 mg 04/27/24 09:54 04/27/24 10:36 Ondansetron Hcl 4 Mg/2 Ml Vial IVPUSH 04/27/24 09:55 4 mg ONCE ONE Administration Medical Decision Making Differential Diagnosis Differential Diagnoses: The differential diagnosis associated with the presentation includes (Upper respiratory viral infection, gastroenteritis, food poisoning, influenza, dehydration, intractable vomiting.) Admission/Observation Consideration of admission/observation: Escalation of care including admission/observation considered Lab Data MDM Lab Attestation statement: I reviewed the patient's lab results. 04/27/24 09:25 04/27/24 09:25 Labs: Lab Results 04/27/24 04/27/24 Range/Units 09: 12:29 WBC 6.5 (4.8-10.8) X10*3/uL RBC 4.59 (4.20-5.50) X10*6/uL Hgb 14.3 (12.0-16.0) g/dl Hct 41.8 (37.0-47.0) % MCV 91.1 (80.0-98.0) fL MCH 31.2 (27.0-33.0) pg MCHC 34.2 (31.0-35.0) g/dl RDW 12.1 (11.0-16.0) % Plt Count 169 (160-400) X10*3/uL MPV 9.9 (9.4-12.3) fL Immature Gran % (Auto) 0.2 (0.0-0.4) % Neut % (Auto) 84.5 H (45-73) % Lymph % (Auto) 5.4 L (20-40) % [place] % (Auto) 9.6 (2-11) % Eos % (Auto) 0.0 (0-4) % Baso % (Auto) 0.3 (0-2) % Lymph # (Auto) 0.4 L (1.2-4.9) X10*3/uL [place] # (Auto) 0.6 (0.1-1.2) X10*3/uL Eos # (Auto) 0.0 (0.0-0.4) X10*3/uL Baso # (Auto) 0.0 (0.0-0.2) X10*3/uL Abs Immat Gran (auto) 0.01 (0.00-0.03) X10*3/uL Absolute Neuts (auto) 5.5 (2.0-8.3) x10*3/uL Absolute Nucleated RBC 0.000 (0.0-0.012) X10*3/uL Nucleated RBC % (auto) 0.0 (0.0-0.2) /100WBC Sodium 140 (135-145) mmol/L Potassium 3.9 (3.3-5.1) mmol/L Chloride 104 (96-108) mmol/L Carbon Dioxide 23 (22-29) mmol/L Anion Gap 17 (12-20) BUN 13 (9-16) mg/dL Creatinine 0.72 (0.5-1.4) mg/dL Estim Creat Clear Calc 82.5 Estimated GFR > 60 Random Glucose 104 (60-115) mg/dL Calcium 9.4 (8.4-10.2) mg/dL Total Bilirubin 0.4 (0.0-1.0) mg/dL AST 27 (5-31) U/L ALT 19 (0-31) U/L Alkaline Phosphatase 80 (39-117) U/L Total Protein 8.4 H (6.5-8.0) g/dL Albumin 4.8 (3.5-5.0) g/dL Lipase 21 (8-78) U/L Beta HCG, Quant 4 mIU/mL Urine Color Yellow Urine Appearance Clear Urine pH 6.5 (5.0-9.0) Ur Specific [place] 1.025 (1.005-1.025) Urine Protein 30 (1+) H (Neg-Trace) mg/dL Urine Glucose (UA) Negative (Negative) mg/dL Urine Ketones 15 (Negative) mg/dL Urine Blood Trace H (Negative) Urine Nitrite Negative (Negative) Ur Leukocyte Esterase Negative (Negative) Urine RBC 6-10 H (0-2) /HPF Urine WBC 0-5 (0-5) /HPF Ur Squamous Epith Cells 0-2 (0-2) /HPF Urine Bacteria None Seen (None Seen) Hyaline Casts 0-2 (0-2) /LPF Influenza Type A (PCR) POSITIVE A (Negative) Influenza Type B (PCR) NEGATIVE (Negative) RSV RNA Qual (PCR) NEGATIVE (Negative) SARS-CoV-2 RNA (RT-PCR) NEGATIVE (Negative) Discharge Plan Discharge Clinical Impression: Influenza A, Intractable vomiting Patient Disposition: Home, Self-Care Instructions: Influenza (ED) Additional Instructions: Wear a face mask at all time. Frequent hand wash. Keep social distance. Quarantine yourself for 4 days. Prescriptions: New ondansetron 4 mg tablet,disintegrating 4 mg PO Q8-12H PRN (Reason: nausea and vomiting) Qty: 7 0RF No Action multivitamin [Daily-Amalia] Tablet 1 tab PO DAILY Qty: 30 0RF quetiapine 25 mg Tablet 25 mg PO BEDTIME Qty: 15 1RF clonidine HCl 0.1 mg Tablet 0.1 mg PO BEDTIME Qty: 15 1RF Protocol: Hold for SBP< HOLD for SBP < : 90 nicotine 21 mg/24 hr Patch 24 Hour 21 mg transdermal DAILY Qty: 30 0RF mirtazapine 15 mg Tablet 15 mg PO BEDTIME Qty: 15 1RF fluoxetine 20 mg Capsule 20 mg PO DAILY Qty: 15 1RF cholecalciferol (vitamin D3) [Vitamin D3] 10 mcg (400 unit) Tablet 10 mcg PO DAILY Qty: 30 0RF dexamethasone 4 mg tablet 4 mg PO BID Qty: 6 0RF tramadol 50 mg tablet 50 mg PO Q8H PRN (Reason: severe pain (scale score 7-10)) Qty: 15 0RF cyclobenzaprine 5 mg tablet 5 mg PO TID PRN (Reason: muscle spasm) Qty: 10 0RF lidocaine 5 % adhesive patch,medicated 1 patch topical DAILY Qty: 15 0RF Rx Instructions: leave on most painful area for up to 12 hrs Stand Alone Forms: Work/School Release Print Language: [place]
[2024-04-27 10:11] LABS: Influenza A PCR POSITIVE (Negative); Influenza B PCR NEGATIVE (Negative); Resp Syncy Virus RNA Qual PCR NEGATIVE (Negative); SARS COV2 PCR INHOUSE NEGATIVE (Negative)
[2024-04-27 10:31] LABS: Alanine Aminotransferase 19 U/L (0-31); Albumin Level 4.8 g/dL (3.5-5.0); Alkaline Phosphatase 80 U/L (39-117); Anion Gap 17 (12-20); Aspartate Amino Transferase 27 U/L (5-31); Bilirubin Total 0.4 mg/dL (0.0-1.0); Blood Urea Nitrogen 13 mg/dL (9-16); Calcium 9.4 mg/dL (8.4-10.2); Carbon Dioxide 23 mmol/L (22-29); Chloride 104 mmol/L (96-108); Creatinine Clr Calc Pharmacy 82.5; Estimated Glomerular Filt Rate > 60; Glucose Random 104 mg/dL (60-115); Lipase 21 U/L (8-78); Potassium 3.9 mmol/L (3.3-5.1); Sodium 140 mmol/L (135-145); Total Protein 8.4 g/dL (6.5-8.0)
[2024-04-27 10:32] LABS: HCG Quantitative 4 mIU/mL
[2024-04-27] MEDS: 0.9 % Sodium Chloride 1,000 ML 999 ML IV (10:32)
[2024-04-27] MEDS: Famotidine/PF 20 MG/2 ML VIAL IVPUSH (10:36)
[2024-04-27] MEDS: Magnesium Hydrox/Alum Hydrox 30 ML ORAL.SUSP PO (10:36)
[2024-04-27] MEDS: ondansetron HCL 4 MG/2 ML VIAL IVPUSH (10:36)
[2024-04-27 12:14] VITALS: BP 130/72; PULSE 106; RESP 16; TEMP 37.7; O2SAT 97
[2024-04-27 12:35] LABS: Appearance Urine Clear; Color Urine Yellow; Glucose Urine UA Negative (Negative); Leukocyte Esterase Urine Negative (Negative); Nitrite Urine Negative (Negative); PH 6.5 (5.0-9.0); Specific Gravity - Urine 1.025 (1.005-1.025); UMIC TRIGGER UACC YES; Urine Blood Trace (Negative); Urine Ketones 15 mg/dL (Negative); Urine Protein 30 (1+) mg/dL (Neg-Trace)
[2024-04-27 12:39] LABS: Bacteria Urine None Seen (None Seen); Hyaline Casts Urine 0-2 /LPF (0-2); Squamous Epithelial Cell Urine 0-2 /HPF (0-2); WBC Urine 0-5 /HPF (0-5)
[2024-04-27 12:53] VITALS: BP 130/72; PULSE 106; RESP 16; TEMP 37.7; O2SAT 97
== END 2024-04-27 12:53 | disposition home or self-care (01) ==
PROVIDERS: Emergency Provider Emergency Medicine
DX: J10.1 Influenza due to other identified influenza virus with other respiratory manifestations (principal); R11.2 Nausea with vomiting, unspecified; Z03.818 Encounter for observation for suspected exposure to other biological agents ruled out; Z79.899 Other long term (current) drug therapy
CPT/HCPCS: 0241U; 36415; 80053; 81001; 83690; 84702; 85025; 96361; 96374; 96375; 99283; 99284; J2405

== ENCOUNTER 2024-05-06 09:10 | Emergency (ER) | payer MEDICAID, SELFPAY ==
--- NOTE | ~2024-05-06 | XR_ITS ---
EXAMINATION: XR CHEST CLINICAL INFORMATION: cough COMPARISON: None available. TECHNIQUE: 2 views of the chest were obtained. FINDINGS: No consolidation pleural effusion or pneumothorax. Cardiomediastinal silhouette is normal. Osseous structures are intact. XR/XR chest 2V IMPRESSION: Normal chest x-ray. Electronically signed by: Corey Campbell MD 05/06/2024 09:58 AM [facility]
[2024-05-06 09:20] VITALS: BP 92/83; PULSE 74; RESP 22; TEMP 36.4; O2SAT 100; BMI 23.0
[2024-05-06 10:16] LABS: Influenza A PCR NEGATIVE (Negative); Influenza B PCR NEGATIVE (Negative); Resp Syncy Virus RNA Qual PCR NEGATIVE (Negative); SARS COV2 PCR INHOUSE NEGATIVE (Negative)
[2024-05-06] MEDS: ondansetron HCL 4 MG/2 ML VIAL IVPUSH (11:26)
[2024-05-06] MEDS: Famotidine/PF 20 MG/2 ML VIAL IVPUSH (11:26)
[2024-05-06] MEDS: Magnesium Hydrox/Alum Hydrox 30 ML ORAL.SUSP PO (11:27)
[2024-05-06] MEDS: 0.9 % Sodium Chloride 1,000 ML 999 ML IV (11:27)
[2024-05-06 11:30] LABS: Basophils Percent Auto 0.1 % (0-2); Eosinophils Percent Auto 0.3 % (0-4); Hematocrit 41.9 % (37.0-47.0); Hemoglobin 14.3 g/dl (12.0-16.0); Imm Gran Abs Auto 0.07 X10*3/uL (0.00-0.03); Imm Gran Pct Auto 0.8 % (0.0-0.4); Lymphocytes Absolute Auto 1.4 X10*3/uL (1.2-4.9); Lymphocytes Percent Auto 15.3 % (20-40); MANUAL DIFF FLAG NO; Mean Corpuscular HGB Conc 34.1 g/dl (31.0-35.0); Mean Corpuscular Hemoglobin 30.5 pg (27.0-33.0); Mean Corpuscular Volume 89.3 fL (80.0-98.0); Mean Platelet Volume 8.9 fL (9.4-12.3); Monocytes Absolute Auto 0.4 X10*3/uL (0.1-1.2); Monocytes Percent Auto 4.3 % (2-11); Neutrophils Absolute Auto 7.2 x10*3/uL (2.0-8.3); Neutrophils Percent Auto 79.2 % (45-73); Platelet Count 330 X10*3/uL (160-400); Red Blood Count 4.69 X10*6/uL (4.20-5.50); Red Cell Distribution Width 11.7 % (11.0-16.0)
[2024-05-06 11:32] LABS: Appearance Urine Clear; Color Urine Yellow; Glucose Urine UA Negative (Negative); Leukocyte Esterase Urine Negative (Negative); Nitrite Urine Negative (Negative); PH >= 9.0 (5.0-9.0); UMIC TRIGGER UACC YES; Urine Blood Negative (Negative); Urine Ketones 80 mg/dL (Negative); Urine Protein 30 (1+) mg/dL (Neg-Trace)
[2024-05-06 11:51] LABS: Bacteria Urine None Seen (None Seen); Hyaline Casts Urine 0-2 /LPF (0-2); RBC Urine 0-2 /HPF (0-2); Squamous Epithelial Cell Urine 0-2 /HPF (0-2); WBC Urine 0-5 /HPF (0-5)
[2024-05-06 11:53] LABS: Alanine Aminotransferase 19 U/L (0-31); Albumin Level 4.4 g/dL (3.5-5.0); Alkaline Phosphatase 76 U/L (39-117); Anion Gap 8 (12-20); Aspartate Amino Transferase 26 U/L (5-31); Bilirubin Direct 0.2 mg/dL (0.0-0.5); Blood Urea Nitrogen 11 mg/dL (9-16); Carbon Dioxide 28 mmol/L (22-29); Chloride 109 mmol/L (96-108); Creatinine Clr Calc Pharmacy 93.8; Estimated Glomerular Filt Rate > 60; Glucose Random 101 mg/dL (60-115); Lipase 23 U/L (8-78); Potassium 3.4 mmol/L (3.3-5.1); Sodium 142 mmol/L (135-145)
--- NOTE | 2024-05-06 12:18 | ED.GENADULT ---
HPI - General Adult General Chief complaint: Upper Respiratory Symptoms Stated complaint: SOB, vomiting, diarrhea Time Seen by Provider: 05/06/24 10:27 Source: patient, RN notes reviewed and old records reviewed Mode of arrival: ambulatory History of Present Illness ED Provider: Lin Lutz PA-C HPI narrative: 48-year-old female with a past medical history GERD, PTSD, depression, recent influenza infection, presenting to ED complaining of persistent cough, SOB, myalgias, fatigue, nausea, diarrhea, headache x last week. Patient was evaluated in our ED on 04/27/24 for similar symptoms, diagnosed with Influenza A at that time and reports persistent/unremitting symptoms. Reports decreased p.o. intake. Denies fever, travel, sick contacts, vomiting, dysuria/hematuria, abdominal pain, chest pain Related Data Previous Rx's ?Medication ?Instructions ?Recorded cholecalciferol (vitamin D3) 10 10 mcg PO DAILY #30 tabs 06/13/21 mcg (400 unit) tablet (Vitamin D3) clonidine HCl 0.1 mg tablet 0.1 mg PO BEDTIME #15 tabs 06/13/21 fluoxetine 20 mg capsule 20 mg PO DAILY #15 caps 06/13/21 mirtazapine 15 mg tablet 15 mg PO BEDTIME #15 tabs 06/13/21 multivitamin (Daily-Amalia tablet) 1 tab PO DAILY #30 tabs 06/13/21 nicotine 21 mg/24 hr daily 21 mg transdermal DAILY #30 ea 06/13/21 transdermal patch quetiapine 25 mg tablet 25 mg PO BEDTIME #15 tabs 06/13/21 cyclobenzaprine 5 mg tablet 5 mg PO TID PRN muscle spasm #10 07/21/23 tabs lidocaine 5 % topical patch 1 patch topical DAILY #15 ea 07/21/23 dexamethasone 4 mg tablet 4 mg PO BID #6 tabs 01/08/24 tramadol 50 mg tablet 50 mg PO Q8H PRN severe pain 01/08/24 (scale score 7-10) #15 tabs ondansetron 4 mg disintegrating 4 mg PO Q8-12H PRN nausea and 04/27/24 tablet vomiting #7 tabs ondansetron 4 mg disintegrating 4 mg PO Q8H PRN nausea and 05/06/24 tablet vomiting #10 tabs prednisone 20 mg tablet 40 mg (2 x 20 mg) PO DAILY 5 days 05/06/24 #10 tabs Allergies Allergy/AdvReac Type Severity Reaction Status Date / Time No Known Allergies Allergy Verified 05/06/24 09:22 Review of Systems Review of Systems: Yes all other systems are reviewed and are negative Constitutional: Constitutional: Reports as per [facility] Past Medical History Attestation statement: The following information was validated with the patient. Source: old records reviewed Medical History Depression Surgical History No pertinent past surgical history Family History Family History Other No family history of coronary artery disease Social History Social History Household Members: Family Household Members Other:: Ex- and son Housing: Apartment Do you presently have visiting nurse or other home services: No Alcohol intake: current Patient Tobacco Use Status: Current everyday Tobacco user Tobacco use type: Cigarette Cigarette Packs Per Day: 2 Cigarettes Per Day: 40.0 Years Smoked: 31 e-Cigarette/Vaping Use: Currently Using Second Hand Smoke Exposure: No Substance Use Type: Marijuana Advance Directives: No Advance Directives Information Provided: Yes service: No Sexual orientation: Straight/Heterosexual Physical Exam ED Vital Signs: Vital Signs - 24 hr 05/06/24 09:20 05/06/24 13:18 05/06/24 13:21 Temperature 97.5 F 98.1 F 98.1 F Pulse Rate 74 72 72 Respiratory Rate 22 H 18 18 Blood Pressure 92/83 143/72 H 143/72 H Pulse Oximetry 100 95 95 Oxygen Delivery Method Room Air Room Air Room Air BMI result Body Mass Index 23.0 Const General: cooperative, healthy appearing and no acute distress Orientation/consciousness: patient oriented x3 Limitations: no limitations HENMT Head: Yes normal to inspection and Yes atraumatic Ears: hearing grossly normal bilaterally General nose exam: Normal external nose present Face and sinus: Yes normal facial exam Mouth: no drooling Throat: Yes posterior oropharynx normal, Yes tonsils normal, Yes uvula midline, No peritonsillar mass, No uvula laterally displaced and No uvular edema Eyes General: appearance normal, both eyes and all related structures EOM: EOMs intact bilaterally Neck Neck: Yes normal visual inspection and Yes no meningeal signs Resp Effort & Inspection: normal respiratory effort, no respiratory distress and no stridor Auscultation: clear to auscultation bilaterally, no crackles, no rales, no rhonchi and no wheezes Cardio Rate: regular rate Heart sounds: S1 normal heart sound present and S2 normal heart sound present GI Inspection: Yes normal to inspection Palpation (GI): Soft to palpation, nontender, no guarding and not rigid General: Yes no CVA tenderness Back/Spine/Pelvis Back: no CVA tenderness Skin Rashes: no rashes Wounds: no wounds Neuro General: patient oriented x3, tone normal and no meningeal signs Cranial nerves: Yes CN's II-XII intact bilaterally Gait exam (Neuro): Normal gait present Extrem General: Yes normal to inspection and Yes no pedal edema Course Course Course Narrative: -1225--no leukocytosis. Labs otherwise reassuring -UA with 80 ketones, not infected -viral testing negative XR chest 2V IMPRESSION: Normal chest x-ray. > 1256--patient tolerated p.o. without difficulty. Feels comfortable for discharge home at this time. Will discharge home with p.o. prednisone for bronchitis and close PCP follow-up. Results discussed with patient including worrisome signs and symptoms and strict return precautions, and when to return to the emergency department. They verbalized understanding and feel safe for discharge at this time. Medications Administered Discontinued Medications Generic Name Dose Route Start Last Admin Trade Name Freq PRN Reason Stop Dose Admin Al Hydroxide/Mg Hydroxide 30 ml 05/06/24 11:06 05/06/24 11:27 Magnesium Hydrox/Alum Hydrox 30 Ml Oral.Susp PO 05/06/24 11:07 30 ml ONCE ONE Administration Famotidine 20 mg 05/06/24 11:06 05/06/24 11:26 Famotidine/Pf 20 Mg/2 Ml Vial IVPUSH 05/06/24 11:07 20 mg ONCE ONE Administration Sodium Chloride 1,000 mls @ 999 mls/hr 05/06/24 11:15 05/06/24 12:28 Ns IV 05/06/24 12:15 Infused .Q1H1M A[place]ER Infusion Ondansetron HCl 4 mg 05/06/24 11:06 05/06/24 11:26 Ondansetron Hcl 4 Mg/2 Ml Vial IVPUSH 05/06/24 11:07 4 mg ONCE ONE Administration Medical Decision Making Medical Decision Making [facility] Narrative: 48-year-old female with a past medical history GERD, PTSD, depression, recent influenza infection, presenting to ED complaining of persistent cough, SOB, myalgias, fatigue, nausea, diarrhea, headache x last week. On exam initially tachypneic, NAD, nontoxic appearing, lungs CTA, abdomen soft/nontender. Concern for continued viral illness vs gastroenteritis vs bronchitis vs pneumonia. Rule out metabolic abnormalities including dehydration. Lower suspicion for acute intra-abdominal pathology including appendicitis/diverticulitis/cholecystitis/lithiasis or ACS/PE Plan: labs, UA, viral testing, IVF, symptomatic remedies, p.o. trial, re-evaluate Please refer to course for remaining clinical decision making, interpretation of labs/imaging results, and discussions with consultants and/or family members. Differential Diagnosis Differential Diagnoses: The differential diagnosis associated with the presentation includes As above Admission/Observation Consideration of admission/observation: Escalation of care including admission/observation considered Lab Data [facility] Lab Attestation statement: I reviewed the patient's lab results. 05/06/24 11:25 05/06/24 11:24 Labs: Lab Results 05/06/24 05/06/24 05/06/24 Range/Units 09:31 11:24 11:25 WBC 9.0 (4.8-10.8) X10*3/uL RBC 4.69 (4.20-5.50) X10*6/uL Hgb 14.3 (12.0-16.0) g/dl Hct 41.9 (37.0-47.0) % MCV 89.3 (80.0-98.0) fL MCH 30.5 (27.0-33.0) pg MCHC 34.1 (31.0-35.0) g/dl RDW 11.7 (11.0-16.0) % Plt Count 330 D (160-400) X10*3/uL MPV 8.9 L (9.4-12.3) fL Immature Gran % (Auto) 0.8 H (0.0-0.4) % Neut % (Auto) 79.2 H (45-73) % Lymph % (Auto) 15.3 L (20-40) % [place] % (Auto) 4.3 (2-11) % Eos % (Auto) 0.3 (0-4) % Baso % (Auto) 0.1 (0-2) % Lymph # (Auto) 1.4 (1.2-4.9) X10*3/uL [place] # (Auto) 0.4 (0.1-1.2) X10*3/uL Eos # (Auto) 0.0 (0.0-0.4) X10*3/uL Baso # (Auto) 0.0 (0.0-0.2) X10*3/uL Abs Immat Gran (auto) 0.07 H (0.00-0.03) X10*3/uL Absolute Neuts (auto) 7.2 (2.0-8.3) x10*3/uL Absolute Nucleated RBC 0.000 (0.0-0.012) X10*3/uL Nucleated RBC % (auto) 0.0 (0.0-0.2) /100WBC Sodium 142 (135-145) mmol/L Potassium 3.4 (3.3-5.1) mmol/L Chloride 109 H (96-108) mmol/L Carbon Dioxide 28 (22-29) mmol/L Anion Gap 8 L (12-20) BUN 11 (9-16) mg/dL Creatinine 0.66 (0.5-1.4) mg/dL Estim Creat Clear Calc 93.8 Estimated GFR > 60 Random Glucose 101 (60-115) mg/dL Calcium 9.0 (8.4-10.2) mg/dL Magnesium 2.0 (1.6-2.6) mg/dL Total Bilirubin 0.5 (0.0-1.0) mg/dL Direct Bilirubin 0.2 (0.0-0.5) mg/dL AST 26 (5-31) U/L ALT 19 (0-31) U/L Alkaline Phosphatase 76 (39-117) U/L Total Protein 8.0 (6.5-8.0) g/dL Albumin 4.4 (3.5-5.0) g/dL Lipase 23 (8-78) U/L Urine Color Yellow Urine Appearance Clear Urine pH >= 9.0 (5.0-9.0) Ur Specific [place] 1.020 (1.005-1.025) Urine Protein 30 (1+) H (Neg-Trace) mg/dL Urine Glucose (UA) Negative (Negative) mg/dL Urine Ketones 80 (Negative) mg/dL Urine Blood Negative (Negative) Urine Nitrite Negative (Negative) Ur Leukocyte Esterase Negative (Negative) Urine RBC 0-2 (0-2) /HPF Urine WBC 0-5 (0-5) /HPF Ur Squamous Epith Cells 0-2 (0-2) /HPF Urine Bacteria None Seen (None Seen) Hyaline Casts 0-2 (0-2) /LPF Influenza Type A (PCR) NEGATIVE (Negative) Influenza Type B (PCR) NEGATIVE (Negative) RSV RNA Qual (PCR) NEGATIVE (Negative) SARS-CoV-2 RNA (RT-PCR) NEGATIVE (Negative) Independent Interpretation I performed an independent interpretation of an: Plain X-Ray Radiology Impression Discussion of test interpretation with radiology: I have reviewed the radiologist's reading. External Record Review External record reviewed: Inpatient record, Office record, Outpatient record, Prior outpatient labs, Prior outpatient radiology, Primary care record and Outside ED record Tests considered The following testing was considered but not selected: As above Prescription Management I considered prescription management with: Pain Medication and Antibiotic Chronic Conditions Patient?s care impacted by: Other Social Determinants Patient?s care significantly limited by Social Determinants of Health including: Other Social Determinant of Health Discharge Plan Discharge Clinical Impression: Bronchitis, Nausea, vomiting, and diarrhea Patient Disposition: Home, Self-Care Instructions: Acute Bronchitis (ED), Acute Nausea and Vomiting (ED), Acute Diarrhea (ED) Additional Instructions: Your blood work is reassuring Your urine shows evidence of dehydration Your x-rays negative Zofran as an antinausea medication, please take as needed for nausea and vomiting Prednisone as a steroid Please have close follow up with her doctor No antibiotics are indicated at this time Make sure you are staying hydrated. Drink plenty of fluids. Rest Alternate Tylenol and Motrin at home as needed for body aches and fever Follow-up with your doctor. If symptoms persist or worsen return to the emergency department *If you are a child & not tolerating liquid or urinating for more than 6 hours, or fevers are uncontrolled with medications at home, return to the emergency department* Prescriptions: New prednisone 20 mg tablet 40 mg PO DAILY 5 Days Qty: 10 0RF ondansetron 4 mg tablet,disintegrating 4 mg PO Q8H PRN (Reason: nausea and vomiting) Qty: 10 0RF No Action multivitamin [Daily-Amalia] Tablet 1 tab PO DAILY Qty: 30 0RF quetiapine 25 mg Tablet 25 mg PO BEDTIME Qty: 15 1RF clonidine HCl 0.1 mg Tablet 0.1 mg PO BEDTIME Qty: 15 1RF Protocol: Hold for SBP< HOLD for SBP < : 90 nicotine 21 mg/24 hr Patch 24 Hour 21 mg transdermal DAILY Qty: 30 0RF mirtazapine 15 mg Tablet 15 mg PO BEDTIME Qty: 15 1RF fluoxetine 20 mg Capsule 20 mg PO DAILY Qty: 15 1RF cholecalciferol (vitamin D3) [Vitamin D3] 10 mcg (400 unit) Tablet 10 mcg PO DAILY Qty: 30 0RF dexamethasone 4 mg tablet 4 mg PO BID Qty: 6 0RF tramadol 50 mg tablet 50 mg PO Q8H PRN (Reason: severe pain (scale score 7-10)) Qty: 15 0RF ondansetron 4 mg tablet,disintegrating 4 mg PO Q8-12H PRN (Reason: nausea and vomiting) Qty: 7 0RF cyclobenzaprine 5 mg tablet 5 mg PO TID PRN (Reason: muscle spasm) Qty: 10 0RF lidocaine 5 % adhesive patch,medicated 1 patch topical DAILY Qty: 15 0RF Rx Instructions: leave on most painful area for up to 12 hrs Referrals: Physician,None [Primary Care Provider] - 3 days Interventions: ED Discharge Assessment Last Done: 05/06/24 13:21 Discharge Date/Time: 05/06/24 13:21 Print Language: [place]
[2024-05-06 12:43] LABS: Bilirubin Total 0.5 mg/dL (0.0-1.0)
[2024-05-06 13:18] VITALS: BP 143/72; PULSE 72; RESP 18; TEMP 36.7; O2SAT 95
[2024-05-06 13:21] VITALS: BP 143/72; PULSE 72; RESP 18; TEMP 36.7; O2SAT 95
== END 2024-05-06 13:21 | disposition home or self-care (01) ==
PROVIDERS: Physician Assistant; Emergency Provider Emergency Medicine Emergency Medical Services
DX: J40 Bronchitis, not specified as acute or chronic (principal); R11.2 Nausea with vomiting, unspecified; R19.7 Diarrhea, unspecified; R06.02 Shortness of breath; R05.9 Cough, unspecified; R51.9 Headache, unspecified; Z03.818 Encounter for observation for suspected exposure to other biological agents ruled out; F17.210 Nicotine dependence, cigarettes, uncomplicated; F12.90 Cannabis use, unspecified, uncomplicated; Z79.899 Other long term (current) drug therapy
CPT/HCPCS: 0241U; 36415; 71046; 80048; 80076; 81001; 83690; 83735; 85025; 96361; 96374; 96375; 99283; 99284; J2405

== ENCOUNTER → 2024-05-06 09:26 | Outpatient (BNV) | payer MEDICAID, SELFPAY | PROVIDERS: Visit Provider Radiology Diagnostic Radiology | DX: R05.9 Cough, unspecified (principal) | CPT/HCPCS: 71046 ==

== ENCOUNTER 2024-07-22 11:19 | Outpatient (REF) | payer MEDICAID, SELFPAY ==
[2024-07-22 13:40] LABS: Hematocrit 39.9 % (37.0-47.0); Mean Corpuscular HGB Conc 32.6 g/dl (31.0-35.0); Mean Corpuscular Hemoglobin 30.2 pg (27.0-33.0); Mean Corpuscular Volume 92.6 fL (80.0-98.0); Mean Platelet Volume 10.5 fL (9.4-12.3); Platelet Count 210 X10*3/uL (160-400); Red Blood Count 4.31 X10*6/uL (4.20-5.50); Red Cell Distribution Width 12.3 % (11.0-16.0); White Blood Count 7.4 X10*3/uL (4.8-10.8)
[2024-07-22 13:42] LABS: Estimated Average Glucose 105 mg/dL; Hemoglobin A1C 120.3944 umol/L; Hemoglobin A1c % 5.3 % (<6.0); Total Hemoglobin (HGBA1C) 3460.0941 umol/L
[2024-07-22 14:02] LABS: Alanine Aminotransferase 13 U/L (0-31); Albumin Level 4.5 g/dL (3.5-5.0); Anion Gap 12 (12-20); Aspartate Amino Transferase 24 U/L (5-31); Bilirubin Direct 0.1 mg/dL (0.0-0.5); Bilirubin Total 0.3 mg/dL (0.0-1.0); Blood Urea Nitrogen 13 mg/dL (9-16); Calcium 9.6 mg/dL (8.4-10.2); Carbon Dioxide 27 mmol/L (22-29); Chloride 104 mmol/L (96-108); Cholesterol 169 mg/dL (<200); Estimated Glomerular Filt Rate > 60; Glucose Random 91 mg/dL (60-115); HDL Cholesterol 67 mg/dL (>40); LDL Cholesterol Calculated 90 mg/dL (<100); Potassium 3.9 mmol/L (3.3-5.1); Sodium 139 mmol/L (135-145); Total Protein 7.6 g/dL (6.5-8.0); Triglycerides 62 mg/dL (<150)
[2024-07-22 14:35] LABS: Free T4 (Free Thyroxine) 0.99 ng/dL (0.71-1.85); Thyroid Stimulating Hormone 0.84 uIU/mL (0.32-4.0); Vitamin D 25-OH Total 19.8 ng/mL (>30)
[2024-07-22 15:39] LABS: CT PCR NOT DETECTED (Not Detect.); NG PCR NOT DETECTED (Not Detect.)
[2024-07-22 17:31] LABS: Alkaline Phosphatase 76 U/L (39-117)
[2024-07-23 08:19] LABS: HBS Num1 0.83 mIU/mL (0-7.99); HBc Num1 0.18 S/CO (0.00-0.79); HIV AB/AG Nonreactive (Nonreactive); HIV Num 1 0.06 S/CO (0.00-0.99); Hepatitis B Core Antibody Nonreactive (Nonreactive); Hepatitis B Surface Antigen Negative (Negative); ~HepC Num1 0.09 S/CO (0.00-0.79); ~Hepatitis B Surface Antibody NONREACTIVE (Nonreactive); ~Hepatitis C Antibody Nonreactive (Nonreactive)
[2024-07-24 08:59] LABS: Hepatitis A Antibody IgG Nonreactive (Nonreactive); ~Hepatitis A Antibody IgG 0.22 S/CO (0.00-0.99)
[2024-07-24 11:17] LABS: RPR Rapid Plasma Reagin NON-REACTIVE (NON-REACTIVE)
== END 2024-07-22 11:20 | disposition home or self-care (01) ==
LOC: HO.HHCL 11:19
PROVIDERS: Visit Provider Family Medicine
DX: Z00.00 Encounter for general adult medical examination without abnormal findings (principal); F33.9 Major depressive disorder, recurrent, unspecified; Z01.84 Encounter for antibody response examination
CPT/HCPCS: 80048; 80061; 80076; 82306; 83036; 84439; 84443; 85027; 86592; 86704; 86706; 86708; 86803; 87340; 87389; 87491; 87591

== ENCOUNTER 2025-01-21 11:48 | Outpatient (REF) | payer MEDICAID, SELFPAY ==
--- NOTE | ~2025-01-21 | XR_ITS ---
EXAMINATION: XR FOOT, RIGHT CLINICAL INFORMATION: pt with ongoing pain in her right heel to r/o spur COMPARISON: None available. TECHNIQUE: AP, lateral, and oblique views of the right foot. FINDINGS: Bone mineralization is normal. No visible acute fracture or dislocation. No suspicious bony lesion. Alignment is anatomic. Joint spaces are maintained. No erosions. No significant calcaneal spurring. No abnormal soft tissue calcification. XR/XR foot RT min 3V IMPRESSION: No radiographic evidence of acute osseous findings. Electronically signed by: Saeed Morrell MD 01/21/2025 12:55 PM EDT
--- OUTSIDE RECORDS SUMMARY | 2025-01-21 10:20 | XMS_ITS | Encounter Summary ---
Author Organization [employer] Address [address] [facility] [address] [place] [address] Care Team Providers Care Smocker Name Role Phone DanikaDevika vasques Primary Care Provider [phone] Reason for Visit * Reason Comments Foot Pain Encounter Details Date Type Department Care Team (Late st Contact Info) Description 01/21/2025 10:20 AM EDT Office Visit [facility] [address] [place], [place] [id number] Right foot pain (Primary Dx) Social History Tobacco Use Types Packs/Day Years Used Date Smoking Tobacco: Every Day Cigarettes 2 30 Smokeless Tobacco: Former Tobacco Cessation:Ready to Q uit: Not Asked; Counseling Given: Not Answered Alcohol Use Standard Drinks/Week Comments Never 0 (1 standard drink = 0.6 oz pur e alcohol) Depression Answer Date Recorded Patient Health Questionnaire-9 Score 26 07/21/2024 Patient Health Questionnaire-9 Score 26 07/21/2024 Last PHQ-9: Questionnaire Data Not on file 0 07/21/2024 Housing Stability Answer Date Recorded What is your housing situation today? I do not have housing (Staying with others, in a hotel, in a longterm, living outside on the street, on a beach, in a car, or in a park 07/21/[address] you li ve. Do you have problems with any of the following? None of the above 07/21/2024 Food Insecurity Answer Date Recorded Within the past 12 months, y ou worried that your food would run out before you got money to buy more: Often true 07/21/2024 Within the past 12 months,th e food you bought just didn't last and you didn't have enough money to get more: Often true Transportation Answer Date Recorded In the past 12 months, has l ack of transportation kept you from medical appts, meetings, work or from getting things needed for daily living? No 07/14/2024 Utilities Answer Date Recorded In the past 12 months, has t he electric, gas, oil or water company threatened to shut off services in your home? No 07/14/2024 Depression Answer Date Recorded Patient Health Questionnaire-2 Score 6 07/21/2024 Internet Access Answer Date Recorded Internet Access Q1 No 07/21/2024 Internet Access Q2 I cannot afford it 07/21/2024 Comments No Sex and Gender Information Value Date Recorded Sex Assigned at Female 07/18/2022 9:16 AM EDT Legal Sex Female 9:15 AM EDT Gender Identity Female 07/18/2022 9:16 AM EDT Sexual Orientation Choose not to disclose 2022 9:19 AM EDT documented as of this encounter Last Filed Vital Signs Vital Sign Reading Time Taken Comments Blood Pressure 108/72 01/21/2025 10:05 AM EDT Pulse 78 01/21/2025 10:05 AM EDT Temperature 36.6 C (97.9 F) 01/21/2025 10:05 AM EDT Respiratory Rate 18 01/21/2025 10:05 AM EDT Oxygen Saturation 100% 01/21/2025 10:05 AM EDT Inhaled Oxygen Concentration - - Weight 65.8 kg (145 lb) 01/21/2025 10:05 AM EDT Height - - Body Mass Index 24.13 07/21/2024 11:00 AM EDT documented in this encounter Plan of Treatment Upcoming Encounters Date Type Department Care Team (Late st Contact Info) Description 04/01/2025 8:45 AM EST Office Visit [facility] [address] [place] [address] Jovita Bejarano documented as of this encounter Procedures Procedure Name Priority Date/Time Associated Diagnosis Comments XR FOOT 3+ VIEWS RIGHT Routine 01/21/2025 12:18 PM EDT Right foot pain documented in this encounter Results * XR Foot 3+ Views Right (01/21/2025 12:18 PM EDT) Anatomical Region Laterality Modality Lower Extremities, Foot Right Radiogra phic Imaging 01/21/2025 12:1 8 PM EDT Narrative 01/21/2025 12:58 PM EDT [address] [address] XRay Report Signed Patient: Shavonne Machado MR#: [id number] : 1975 Acct:[id number] Age/Sex: 49 / F ADM Date: 01/21/25 Loc: HO.CX Attending Dr: Pamela Serna MD Ordering Physician: Pamela Tariq MD Date of Service: 01/21/25 Procedure(s): XR foot RT min 3V Accession Number(s): [id number] cc: Pamela Tariq MD Reason for Exam: pt with ongoing pain in her right heel to r/o spur EXAMINATION: XR FOOT, RIGHT CLINICAL INFORMATION: pt with ongoing pain in her right heel to r/o spur COMPARISON: None available. TECHNIQUE: AP, lateral, and oblique views of the right foot. FINDINGS: Bone mineralization is normal. No visible acute fracture or dislocation. No suspicious bony lesion. Alignment is anatomic. Joint spaces are maintained. No erosions. No significant calcaneal spurring. No abnormal soft tissue calcification. XR/XR foot RT min 3V IMPRESSION: No radiographic evidence of acute osseous findings. Electronically signed by: Saeed Morrell MD 01/21/2025 12:55 PM EDT Dictated By: Saeed Morrell MD Signed By: <Electronically signed by Saeed Morrell MD in OV> 01/21/25 1255 DD/ 1218 TD/TT: 01/21/25 1251 Protective Signal Repairer Helper: Procedure Note Donotuseinterpreter, Image - 01/21/2025 [facility] [address] [place] [address] XRay Report Signed Patient: Shavonne MachadoMR#: [id number] : 1975Acct:[id number] Age/Sex: 49 / FADM Date: 01/21/25 Loc: HO.CX Attending Dr: Pamela Serna MD Ordering Physician: Pamela Tariq MD Date of Service: 01/21/25 Procedure(s): XR foot RT min 3V Accession Number(s): [id number] cc: Paemla Tariq MD Reason for Exam: pt with ongoing pain in her right heel to r/o spur EXAMINATION: XR FOOT, RIGHT CLINICAL INFORMATION: pt with ongoing pain in her right heel to r/o spur COMPARISON: None available. TECHNIQUE: AP, lateral, and oblique views of the right foot. FINDINGS: Bone mineralization is normal. No visible acute fracture or dislocation. No suspicious bony lesion. Alignment is anatomic. Joint spaces are maintained. No erosions. No significant calcaneal spurring. No abnormal soft tissue calcification. XR/XR foot RT min 3V IMPRESSION: No radiographic evidence of acute osseous findings. Electronically signed by: Saeed Morrell MD 01/21/2025 12:55 PM EDT RP Dictated By: Saeed Morrell MD Signed By: <Electronically signed by Saeed Morrell MD in OV> 01/21/25 1255 DD/ 1218 TD/TT: 01/21/25 1251 Protective Signal Repairer Helper: YODRY Pamela Serna MD IMG XR PROCEDURES Final Result documented in this encounter Visit Diagnoses Diagnosis Right foot pain- Primary Pain in soft tissues of limb documented in this encounter Additional Health Concerns Assessment Noted Time PHQ-9 Depression Total Score: 26 025 11:20 AM EDT documented as of this encounter Care Teams Smocker Relationship Specialty Start Date End Date Devika Olivares DO [address] [place] [id number] PCP - General Family Medicine 07/21/24 documented as of this encounter
--- OUTSIDE RECORDS SUMMARY | 2025-01-21 15:03 | XMS_ITS | Encounter Summary ---
Author Organization [employer] Address [address] [facility] [address] [place] [address] Care Team Providers Care Lift Team Technician Name Role Phone CelsoDevika arana Primary Care Provider [phone] Encounter Details Date Type Department Care Team (Late st Contact Info) Description 01/21/2025 Results Follow-Up [facility] [address] [place], [place] [phone] Pamela Tariq MD [address] [place] [address] XR Foot 3+ Views Right Social History Tobacco Use Types Packs/Day Years Used Date Smoking Tobacco: Every Day Cigarettes 2 30 Smokeless Tobacco: Former Alcohol Use Standard Drinks/Week Comments Never 0 [...] with others, in a hotel, in a fci, living outside on the street, on a [...] AM EDT documented as of this encounter Miscellaneous Notes * Result Encounter Note - Pamela Serna MD - 01/21/2025 1:18 PM EDT Please inform pt XR of foot not showing any major findings Please advise pt to follow recommendations as discussed today and if no better in next couple of weeks to follow w PCP may need then referral and information aide referral Thanks documented in this encounter Plan of Treatment Upcoming Encounters Date Type Department Care Team (Late st Contact Info) Description 04/01/2025 8:45 AM EST Office Visit [facility] [address] [place] [address] Jovita Bejarano documented as of this encounter Visit Diagnoses Not on filedocumented in this encounter Additional Health Concerns Assessment Noted Time PHQ-9 Depression Total Score: 26 025 11:20 AM EDT documented as of this encounter Care Teams Lift Team Technician Relationship Specialty Start Date End Date Devika Olivares DO [address] [place] [address] PCP - General Family Medicine 07/21/24 documented as of this encounter
--- OUTSIDE RECORDS SUMMARY | 2025-01-21 15:03 | XMS_ITS | Encounter Summary ---
Author Organization [facility] Address [address] [facility] [address] [place] [address] Care Team Providers Care Dropper Tank Storage Name Role Phone Devika Olivares DO Primary Care Provider [phone] Encounter Details Date Type Department Care Team (Late st Contact Info) Description 03/29/2023 Abstract [facility] [address] [place] [address] Andrew Tejedaaris [address] [place] [address] Social History Tobacco Use Types Packs/Day Years Used Date Smoking Tobacco: Every Day Cigarettes 2 30 Smokeless Tobacco: Former Alcohol Use Standard Drinks/Week Comments Never 0 (1 standard drink = 0.6 oz pur e alcohol) Comments Unknown Sex and Gender Information Value Date Recorded Sex Assigned at Female 07/18/2022 9:16 AM EDT Legal Sex Female 9:15 AM EDT Gender Identity Female 07/18/2022 9:16 AM EDT Sexual Orientation Choose not to disclose 2022 9:19 AM EDT documented as of this encounter Plan of Treatment Upcoming Encounters Date Type Department Care Team (Late st Contact Info) Description 04/01/2025 8:45 AM EST Office Visit [facility] [address] [place] [address] Jovita Bejarano documented as of this encounter Visit Diagnoses Not on filedocumented in this encounter Care Teams Dropper Tank Storage Relationship Specialty Start Date End Date Devika Olivares DO [address] [place] [address] PCP - General Family Medicine 07/21/24 documented as of this encounter
--- OUTSIDE RECORDS SUMMARY | 2025-01-21 15:03 | XMS_ITS | Encounter Summary ---
Author Organization [employer] Address [address] [facility] [address] [place] [address] Care Team Providers Care Caravan Park And Camping Ground Manager Name Role Phone Devika Olivares Primary Care Provider Encounter Details Date Type Department Care Team (Latest Contact Info) Description 01/21/2025 Travel Social History Tobacco Use Types Packs/Day Years [...] with others, in a hotel, in a [place] [facility], living outside on the street, on a [...] Description 04/01/2025 8:45 AM EST Office Visit [facility] [address] [place] [address] Jovita Bejarano documented as of this encounter Visit Diagnoses Not on filedocumented in this encounter Additional Health Concerns Assessment Noted Time PHQ-9 Depression Total Score: 26 025 11:20 AM EDT documented as of this encounter Care Teams [employer] Manager Relationship Specialty Start Date End Date Devika Olivares DO [address] [place] [address] PCP - General Family Medicine 07/21/24 documented as of this encounter
--- OUTSIDE RECORDS SUMMARY | 2025-01-21 15:03 | XMS_ITS | Clinical Summary ---
Author Organization [employer] Address [address] [facility] [address] [place] [address] Care Team Providers Care Mold Carpenter Name Role Phone Devika Olivares Primary Care Provider [phone] Allergies Active Allergy Reactions Criticality Noted Date Comments Nicotine 09/03/2018 Skin reaction Medications * This document contains information received from the source organization and may not represent a complete record from that organization. cloNIDine (Catapres) 0.1 MG tablet Take 0.1 mg by mouth 2 times daily. 2 Active FLUoxetine (PROzac) 20 MG capsule TAKE 1 CAPSULE BY MOUTH ONCE A DAY TAKE WITH FLUOXETINE 40 MG FOR A TOTAL OF 60 MG 3 Active FLUoxetine (PROzac) 40 MG capsule Take 40 mg by mouth in the morning. 3 Active ibuprofen 600 MG tablet TAKE 1 TABLET ONLY EVERY 6 HOURS. NO MORE THAN 4 IN 24 HOURS. 3 Active mirtazapine (Remeron) 45 MG tablet Take 45 mg by mouth at bedtime. 3 Active topiramate (Topamax) 25 MG tablet Take 25 mg by mouth 2 times daily. 3 Active cholecalciferol (Vitamin D-3) 50 MCG (1999 UT) capsule Take 1 capsule (50 mcg) by mouth Once per day. 90 capsule 3 5 07/26/19 26 Active gabapentin (Neurontin) 300 MG capsule Take 1 capsule (300 mg) by mouth at bedtime. 30 capsule 3 5 08/07/19 26 Active Additional Information Patient not taking.Reported on 01/21/2025 FLUoxetine (PROzac) 10 MG capsule Take 1 capsule (10 mg) by mouth Once per day. 30 capsule 2 5 01/22/20 26 Active Diclofenac Sodium 1 % gel Apply 1 Application topically if needed each day (right foot pain). 50 g 5 Active Active Problems Problem Noted Date Diagnosed Date Generalized anxiety disorder 07/21/2024 Assessment & Plan (07/23/2024 1:32 PM EDT): During [facility] Consult Shavonne presenting with depressed mood, Tearful, crying spells , hopelessness, irritable mood, loss of interests/pleasure , sense of isolation/loneliness , isolating, change in appetite or weight reduce appetite, changes in sleep difficulty falling asleep and difficulty staying asleep , fatigue/loss of energy, worthlessness, inappropriate/excessive guilt , difficulty concentrating, indecisiveness, excessive worry/anxiety, difficulty controlling worry, anxiety/worry associated to restlessness and/or feeling keyed-up/On edge , easily fatigued , difficulty concentrating and/or mind going blank , irritability, muscle tension , and sleep disturbance difficulty falling asleep, Fear , and sense of dread , and Pattern of unstable and intense interpersonal relationships, Impulsivity, Affective instability, Feelings of emptiness, and Intense anger; for a period of 18+ mo, for most or all symptoms in the context of untreated mental health conditions and lack of social/family support. Pt reported not being connected with services (medical and mental health). Today was first appt with provider. Pt reports hx of MH disorders (further information needed for Bipolar disorder diagnosis). Pt lives alone with her cat and has no social support. Reports hearing voices with no commands; denied visual hallucinations. 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 Pt completed safety plan and was referred to [facility]- immediate appt made for OP services. Gave information for [facility] psychiatry with [facility] [place] for urgent and same-day appts. Pt will be referred for medication management with Remy Munoz. Pt will practice challenge negative thoughts and embrace her emotions. She will recognize signs when feeling severe hopelessness and intrusive thoughts. Information given for [facility], [phone] number and [facility] centers. 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 Major depression, recurrent, chronic 09/03/2018 Assessment & Plan (07/23/2024 1:32 PM EDT): During [facility] Consult Shavonne presenting with depressed mood, Tearful, crying spells , hopelessness, irritable mood, loss of interests/pleasure , sense of isolation/loneliness , isolating, change in appetite or weight reduce appetite, changes in sleep difficulty falling asleep and difficulty staying asleep , fatigue/loss of energy, worthlessness, inappropriate/excessive guilt , difficulty concentrating, indecisiveness, excessive worry/anxiety, difficulty controlling worry, anxiety/worry associated to restlessness and/or feeling keyed-up/On edge , easily fatigued , difficulty concentrating and/or mind going blank , irritability, muscle tension , and sleep disturbance difficulty falling asleep, Fear , and sense of dread , and Pattern of unstable and intense interpersonal relationships, Impulsivity, Affective instability, Feelings of emptiness, and Intense anger; for a period of 18+ mo, for most or all symptoms in the context of untreated mental health conditions and lack of social/family support. Pt reported not being connected with services (medical and mental health). Today was first appt with provider. Pt reports hx of MH disorders (further information needed for Bipolar disorder diagnosis). Pt lives alone with her cat and has no social support. Reports hearing voices with no commands; denied visual hallucinations. 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 Pt completed safety plan and was referred to [facility]- immediate appt made for OP services. Gave information for [facility] psychiatry with [facility] [place] for urgent and same-day appts. Pt will be referred for medication management with Remy Munoz. Pt will practice challenge negative thoughts and embrace her emotions. She will recognize signs when feeling severe hopelessness and intrusive thoughts. Information given for [facility], [phone] and [facility] centers. Resolved Problems Problem Noted Date Diagnosed Date Resolved Date Dental calculus 03/14/2023 07/21/2024 Missing teeth, acquired 03/14/202307/08 Encounters Date Type Department Care Team Description 01/21/2025 10:20 AM EDT Office Visit [facility] [address] [place] [phone] Right foot pain (Primary Dx) 01/21/2025 Results Follow-Up [facility] [address] [place] [phone] Pamela Tariq MD XR Foot 3+ Views Right 01/21/2025 Travel from Last 3 Months Immunizations Immunization Administration Dates Next Due Pfizer Covid-19 Vaccine 12+ 08/10/2020, Pneumococcal Conjugate PCV 20 07/21/2024 Tdap 09/03/2018 Family History Medical History Relation Name Comments Depression Brother Cancer Maternal Grandfather Cancer Maternal Grandmother Asthma Mother Cancer Mother's Brother Relation Name Status Comments Brother Maternal Grandfather Maternal Grandmother Mother Mother's Brother Social History Tobacco Use Types Packs/Day Years [...] with others, in a hotel, in a mcfp, living outside on the street, on a [...] not to disclose 2022 9:19 AM EDT Last Filed Vital Signs Vital Sign Reading Time Taken Comments Blood Pressure 108/72 01/21/2025 10:05 AM EDT Pulse 78 01/21/2025 10:05 AM EDT Temperature 36.6 C (97.9 F) 01/21/2025 10:05 AM EDT Respiratory Rate 18 01/21/2025 10:05 AM EDT Oxygen Saturation 100% 01/21/2025 10:05 AM EDT Inhaled Oxygen Concentration - - Weight 65.8 kg (145 lb) 01/21/2025 10:05 AM EDT Height 165.1 cm (5' 5 ) 07/21/2024 11:00 AM EDT Body Mass Index 24.13 07/21/2024 11:00 AM EDT Plan of Treatment Upcoming Encounters Date Type Department Care Team (Late st Contact Info) Description 04/01/2025 8:45 AM EST Office Visit [facility] ADULT DENTAL [address] [place] [address] Jovita Bejarano Health Maintenance Due Date Last Done Comments CT Colonography 1975 Colonoscopy 1975 Colorectal Cancer Screening 1975 FIT DNA/Cologuard 1975 FIT 1975 FOBT 1975 Sigmoidoscopy 1975 Alcohol/Substance Use Screening 1987 Family Planning (PISQ) 11/04/1990 Hepatitis B Vaccines (1 of 3 - 19+ 3-dose series) 11/04/1994 Pap Smear 11/04/1996 Cervical Cancer Screening 11/04/2005 HPV/Cotest 11/04/2005 Mammogram 2015 Dental Oral Exam 09/13/2024 03/14/2024, 03/14/2023 Dental Prophylaxis 09/13/2024 03/14/2024, 03/14/2023 COVID-19 Vaccine (3 - 2024-2 6 season) 2024 08/10/2020, 07/20/2020 Influenza Vaccine (#1) 2024 Depression Monitoring 01/20/2025 07/21/2024 , 07/21/2024 Dental X-Ray: Bitewings 06/26/2025 06/26/19 25, 03/14/2024, 03/14/2023 Disability Screening 07/21/2025 07/21/2024 SDOH Screening 07/21/2025 07/21/2024 Zoster Vaccines (1 of 2) 11/04/2025 Tobacco Screening 01/21/2026 01/21/2025 Dental X-Ray: Full Mouth 03/15/2026 03/14/2023 DTaP/Tdap/Td Vaccines (2 - T d or Tdap) 09/03/2028 09/03/2018 Lipid Panel 07/22/2029 07/22/2024 RSV Patients and Patients Aged 60 years or older (1 - 1-dose 75+ series) 11/04/2050 Pneumococcal Vaccine: Pediatrics (0 to 5 Years) and At-Risk Patients (6 to 49) Years Completed 07/21/2024 HIV Screening Completed 07/22/2024 Hepatitis C Screening Completed 07/22/2024 HIB Vaccines Aged Out No longer eligi ble based on patient's age to complete this topic HPV Vaccines Aged Out No longer eligi ble based on patient's age to complete this topic Hepatitis A Vaccines Aged Out No long er eligible based on patient's age to complete this topic IPV Vaccines Aged Out No longer eligi ble based on patient's age to complete this topic Meningococcal B Vaccine Aged Out No l onger eligible based on patient's age to complete this topic Meningococcal Vaccine Aged Out No ethan georgette eligible based on patient's age to complete this topic RSV under 20 months Aged Out No longe r eligible based on patient's age to complete this topic Rotavirus Vaccines Aged Out No longer eligible based on patient's age to complete this topic Procedures Procedure Name Priority Date/Time Associated Diagnosis Comments XR FOOT 3+ VIEWS RIGHT Routine 01/21/2025 12:18 PM EDT Right foot pain HEPATITIS C AB W/REFL TO HCV RNA, QN, PCR Routine 07/22/2024 11:22 AM EDT Routine history and physical examination of adult Major depression, recurrent, chronic (CMS/HCC) Encounter for immunization HIV 1/2 ANTIGEN/ANTIBODY, FOURTH GENERATION W/RFL Routine 07/22/2024 11:22 AM EDT Routine history and physical examination of adult Major depression, recurrent, chronic (CMS/HCC) Encounter for immunization LIPID PANEL, STANDARD Routine 07/22/2024 11:22 AM EDT Routine history and physical examination of adult Major depression, recurrent, chronic (CMS/HCC) Encounter for immunization BITEWING - SINGLE RADIOGRAPHIC IMAGE Routine 06/25/2024 10:00 AM EDT Full sabianism of crown of tooth needed due to previous endodontic treatment Full PROPHYLAXIS - ADULT Routine 03/14/2024 10:00 AM EST Dental calculus Periodontal disease PERIODIC ORAL EVALUATION - ESTABLISHED PATIENT Routine 03/14/2024 10:00 AM EST INTRAORAL - COMPLETE SERIES OF RADIOGRAPHIC IMAGES Routine 03/14/2023 8:00 AM EST Dental calculus Periodontal disease Missing teeth, acquired from Last 3 Months or Most Recently Relevant to Health Maintenance Results * XR Foot 3+ Views Right (01/21/2025 12:18 PM EDT) Anatomical Region Laterality Modality Lower Extremities, Foot Right Radiogra phic Imaging 01/21/2025 12:1 8 PM EDT Narrative 01/21/2025 12:58 [place] [address] XRay Report Signed Patient: Shavonne Machado MR#: [id number] : 1975 Acct:[id number] Age/Sex: 49 / F ADM Date: 01/21/25 Loc: HO.HHCX Attending Dr: Pamela Serna MD Ordering Physician: Pamela Tariq MD Date of Service: 01/21/25 Procedure(s): XR foot RT min 3V Accession Number(s): [id number] cc: Pamela Tariq MD Reason for Exam: [...] 01/21/25 1255 DD/ 1218 TD/TT: 01/21/25 1251 Blending Technician: YORDY Procedure Note Donotuseinterpreter, Image - 01/21/2025 [place] [address] XRay Report Signed Patient: Shavonne MachadoMR#: [id number] : 1975Acct:[id number] Age/Sex: 49 / FADM Date: 01/21/25 Loc: HO.HHCX Attending Dr: Pamela Serna MD Ordering Physician: Pamela Tariq MD Date of Service: 01/21/25 Procedure(s): XR foot RT min 3V Accession Number(s): [id number] cc: Pamela Tariq MD Reason for Exam: [...] 01/21/25 1255 DD/ 1218 TD/TT: 01/21/25 1251 Blending Technician: YORDY us Pamela Serna MD IMG XR PROCEDURES Final Result * Hepatitis C Antibody with Reflex to HCV, RNA, Quantitative, Real-Time PCR (07/22/2024 11:22 AM EDT) Hepatitis C Antibody Nonreactive Nonreactive [facility] Comment:Antibodies to HCV no t detected; does not exclude early acuteHCV infection. Blood Venous blood specimen / Unknown 07/22/2024 11:22 AM EDT 07/22/2024 1:20 PM EDT us Devika Olivares DO LAB BLOOD ORDERABLES Final R esult [facility] [address] [place] [phone] * HIV-1/2 Antigen and Antibodies, Fourth Generation, with Reflexes (07/22/2024 11:22 AM EDT) HIV AB/AG Nonreactive Nonreactive [facility] Comment:HIV-1 p24 Ag and/or HIV-1/HIV-2 Ab not detected.A test result that is nonreactive does not exclude thepossibility of exposure to or infection with HIV-1 and/orHIV-2. Nonreactive results in this assay for individualswith prior exposure to HIV-1 and/or HIV-2 may be due toantigen and antibody levels that are below the limit ofdetection of this assay.The [employer] HIV Ag/Ab Combo assay result andsupplemental assay results should be interpreted inconjunction with the patient's clinical presentation,history and other laboratory results. If the results areinconsistent with clinical evidence, additional testing issuggested to confirm the result. Blood Venous blood specimen / Unknown 07/22/2024 11:22 AM EDT 07/22/2024 1:20 PM EDT Devika Elise LAB BLOOD ORDERABLES Final R esult Performing Organization Address [facility] Co de Phone Number [facility] [address] [place] [phone] * Lipid Panel, Standard (07/22/2024 11:22 AM EDT) Triglycerides 62 <150 mg/dL [facility] Comment:Desirable Triglyceri de: less than 150 mg/dLBorderline High Triglyceride 150-199 mg/dLHigh Triglyceride: 200-499 mg/dLVery High Triglyceride: greater than or equal to 5OO mg/dL Cholesterol 169 <200 mg/dL [facility] Comment:Desirable Cholestero l: less than 200 mg/dLBorderline High Cholesterol: 200-239 mg/dLHigh Cholesterol: greater than 239 mg/dL LDL Cholesterol Calculated 90 <100 mg/dL [facility] Comment:Desirable LDL: less than 100 mg/dLNear Optimal/Above Optimal LDL: 110- 129 mg/dLBorderline High LDL: 130-159 mg/dLHigh LDL: 160-189 mg/dLVery High LDL: greater than or equal to 190 mg/dL HDL Cholesterol 67 >40 mg/dL [facility] Comment:Desirable HDL: great er than 40 mg/dL Note: This HDL assay may give artificially low results in patients with liver disease. Blood Venous blood specimen / Unknown 07/22/2024 11:22 AM EDT 07/22/2024 1:20 PM EDT Devika Olivares LAB BLOOD ORDERABLES Final R esult Performing Organization Address City/[facility]/ZIP Co de Phone Number [facility] [address] [place] [phone] from Last 3 Months or Most Recently Relevant to Health Maintenance Insurance [employer] [employer] STAND ADULT Care Teams Mold Carpenter Relationship Specialty Start Date End Date Devika Olivares DO [address] [place] [phone] PCP - General Family Medicine 07/21/24
== END 2025-01-21 11:49 | disposition home or self-care (01) ==
LOC: HO.HHCX 11:48
PROVIDERS: PCP Student in an Organized Health Care Education/Training Program; Visit Provider Student in an Organized Health Care Education/Training Program
DX: M79.671 Pain in right foot (principal)
CPT/HCPCS: 73630

== ENCOUNTER → 2025-01-21 11:59 | Outpatient (BNV) | payer MEDICAID, SELFPAY | PROVIDERS: PCP Student in an Organized Health Care Education/Training Program; Visit Provider Radiology Diagnostic Ultrasound | DX: M79.671 Pain in right foot (principal) | CPT/HCPCS: 73630 ==

== ENCOUNTER 2025-03-16 11:30 | Outpatient (REF) | payer MEDICAID, SELFPAY ==
--- OUTSIDE RECORDS SUMMARY | 2025-03-10 15:00 | XMS_ITS | Encounter Summary ---
Author Organization [facility] [employer] Address [address] [facility] [address] [place] [address] Care Team Providers Care Germination Testing Manager Name Role Phone Elise Devika Primary Care Provider [phone] Reason for Visit * Reason Comments Scaling And Root Planing LL, LR quad Encounter Details Date Type Department Care Team (Late st Contact Info) Description 03/10/2025 3:00 PM EST Office Visit [facility] ADULT DENTAL [address] [place] [address] Nikhil, Rashida [address] [place] [address] Periodontal disease (Primary Dx); Generalized gingival recession; Dental calculus Social History Tobacco Use Types Packs/Day Years Used Date Smoking Tobacco: Every Day Cigarettes 2 30 Smokeless Tobacco: Former Alcohol Use Standard Drinks/Week Comments Never 0 (1 standard drink = 0.6 oz pur e alcohol) Depression Answer Date Recorded Patient Health Questionnaire-9 Score 18 02/05/2025 Patient Health Questionnaire-9 Score 18 02/05/2025 Last PHQ-9: Questionnaire Data Not on file 1 Housing Stability Answer Date Recorded What is your housing situation today? I do not have housing (Staying with others, in a hotel, in a halfway, living outside on the street, on a [...] Date Recorded Patient Health Questionnaire-2 Score 6 02/05/2025 Internet Access Answer Date Recorded Internet Access Q1 No 07/21/2024 Internet Access Q2 I cannot afford it 07/21/2024 Comments No Sex and Gender Information Value Date Recorded Sex Assigned at Female 07/18/2022 9:16 AM EDT Legal Sex Female 9:15 AM EDT Gender Identity Female 07/18/2022 9:16 AM EDT Sexual Orientation Straight 02/03/2025 10 :24 AM EDT documented as of this encounter Last Filed Vital Signs Vital Sign Reading Time Taken Comments Blood Pressure 124/70 03/10/2025 1:52 PM EST Pulse - - Temperature - - Respiratory Rate - - Oxygen Saturation - - Inhaled Oxygen Concentration - - Weight - - Height - - Body Mass Index - - documented in this encounter Progress Notes * Rashida Tejeda - 03/10/2025 3:00 PM EST Pt was approved 3 quads LL, LR, UR quads. EXP 03/18 See Pre TX Estimate from 03/29/23. Patient ID: Shavonne Machado is a 49 y.o. female. Time Out: Timeout Date: 03/10/25, Timeout Time: 1356 (SRP LL quad), LR quads. Location: [facility] Tooth: LR and LL Procedure: Scaling and Root Planing Verified the above with patient, assistant professor of life sciences, and provider. Confirmed via patient's chart, intraorally and by radiographs. Material Mover: not applicable Medical Hx: Vitals: Blood pressure 124/70. Medications, Med Hx reviewed with patient and updated in chart. Treatment Provided Dental procedures in this visit D4341 - PERIODONTAL SCALING AND ROOT PLANING - 4 OR MORE TEETH PER QUADRANT LL (Completed) Service provider: Rashida Tejeda Billing provider: Bebe Ruiz DDS D4341 - PERIODONTAL SCALING AND ROOT PLANING - 4 OR MORE TEETH PER QUADRANT LR (Completed) Service provider: Rashida Tejeda Billing provider: Bebe Ruiz DDS D1330 - ORAL HYGIENE INSTRUCTIONS (Completed) Service provider: Rashida Tejeda Billing provider: Bebe Ruiz DDS D9450 - CASE PRESENTATION, DETAILED AND EXTENSIVE TREATMENT PLANNING (Completed) Service provider: Rashida Tejeda Billing provider: Bebe Ruiz DDS Topical: 20% Benzocaine Anesthesia: 2% Lidocaine (Xylocaine) w/ 1:100,000 epinephrine Number of Cartridges: 1 Injection Type: Mental nerve block and mandibular incisal for LL, LR quads Confirmed profound anesthesia. Oral Cancer Screening: No lesions Head/Neck Exam: No Lesions Instruments Used: Ultrasonic Scalers and Hand Scalers Calculus: Light, Moderate, and Subgingival Plaque: Light and Moderate Stain: Moderate and Heavy, tobacco and coffee stains. Bleeding: Light Gingiva: Recession- generalized and pink/magenta OH: Fair Oral hygiene instructions provided to patient including brushing technique and flossing. Recommendations: Henderson two times daily, modified gillsepie technique, Floss daily, Electric toothbrush, Soft bristle toothbrush, Henderson Tongue, Anti-sensitivity toothpaste, Smoking cessation discussed Pt states she smokes 2 packs of cigarettes Recall Frequency: 03/17/25 NV: for SRP UR quad Hygienist: Rashida Tejeda RDH * Bebe Ruiz DDS - 03/10/2025 3:00 PM EST I have reviewed the documentation and dental procedures made by the rendering provider, Rashida Tejeda RDH, and approve their chart entries for this visit. Bebe Ruiz DDS documented in this encounter Plan of Treatment Upcoming Encounters Date Type Department Care Team (Late st Contact Info) Description 03/17/2025 3:00 PM EST Office Visit [facility] ADULT DENTAL [address] [place], [place] [phone] Rashida Tejeda [address] [place] [address] 03/27/2025 10:15 AM EST Office Visit [facility] MEDICINE [address] [place] [address] Devika Olivares, [address] [place] [address] 04/29/2025 10:00 AM EST Office Visit [facility] ADULT DENTAL [address] [place] [address] Rashid Rainey, DDS [address] [place] [address] 06/05/2025 9:30 AM EST Office Visit [facility] ADULT DENTAL [address] [place] [address] Rashida Tejeda [address] [place] [address] 07/07/2025 1:00 PM EDT Office Visit [facility] OPTOMETRY [address] [place] [address] Tarka, Kimmie, OD [address] [place] [address] documented as of this encounter Procedures Procedure Name Priority Date/Time Associated Diagnosis Comments LR PERIODONTAL SCALING AND ROOT PLANING - 4 OR MORE TEETH PER QUADRANT Routine 03/10/2025 3:00 PM EST Periodontal disease Generalized gingival recession Dental calculus LL PERIODONTAL SCALING AND ROOT PLANING - 4 OR MORE TEETH PER QUADRANT Routine 03/10/2025 3:00 PM EST Periodontal disease Generalized gingival recession Dental calculus ORAL HYGIENE INSTRUCTIONS Routine 03/10/2025 3:00 PM EST Periodontal disease Generalized gingival recession Dental calculus CASE PRESENTATION, DETAILED AND EXTENSIVE TREATMENT PLANNING Routine 03/10/2025 3:00 PM EST Periodontal disease Generalized gingival recession Dental calculus documented in this encounter Visit Diagnoses Diagnosis Periodontal disease- Primary Unspecified gingival and periodontal disease Generalized gingival recession Gingival recession, generalized Dental calculus Accretions on teeth documented in this encounter Additional Health Concerns Assessment Noted Time PHQ-9 Depression Total Score: 18 025 9:19 AM EDT documented as of this encounter Care Teams Germination Testing Manager Relationship Specialty Start Date End Date Devika Olivares DO [address] [place] [address] PCP - General Family Medicine 07/21/24 documented as of this encounter
--- NOTE | ~2025-03-16 | XR_ITS ---
EXAMINATION: XR KNEE, RIGHT CLINICAL INFORMATION: increasing pain slipped on ice and fell on right knee COMPARISON: None available. TECHNIQUE: Four views of the right knee. FINDINGS: No fracture or joint effusion. Alignment is anatomic. Joint spaces are maintained. No abnormal soft tissue calcification. XR/XR knee RT 4V IMPRESSION: Unremarkable right knee. Electronically signed by: Linden Villasenor MD 03/16/2025 11:54 AM HUSSEIN
--- OUTSIDE RECORDS SUMMARY | 2025-03-16 11:00 | XMS_ITS | Encounter Summary ---
Author Organization [employer] Address [address] [facility] [facility] [address] [place] [address] Care Team Providers Care Smoking Pipe Mounter Name Role Phone Elise Devika Primary Care Provider + [phone] Reason for Visit * Reason Comments Knee Pain Encounter Details Date Type Department Care Team (Late st Contact Info) Description 03/16/2025 11:00 AM EST Office Visit [facility] [address] [place], [place] [id number] Acute pain of right knee (Primary Dx) Social History Tobacco Use Types [...] with others, in a hotel, in a skilled nursing, living outside on the street, on a [...] Sign Reading Time Taken Comments Blood Pressure 122/78 03/16/2025 10:34 AM EST Pulse 77 03/16/2025 10:34 AM EST Temperature 36.6 C (97.9 F) 03/16/2025 10:34 AM EST Respiratory Rate 17 03/16/2025 10:34 AM EST Oxygen Saturation 97% 03/16/2025 10:34 AM EST Inhaled Oxygen Concentration - - Weight 72.6 kg (160 lb) 03/16/2025 10:34 AM EST Height 165.1 cm (5' 5 ) 03/16/2025 10:34 AM EST Body Mass Index 26.63 03/16/2025 10:34 AM EST documented in this encounter Plan of Treatment Upcoming Encounters Date Type Department Care Team (Late st Contact Info) Description 03/17/2025 3:00 PM EST Office Visit [facility] ADULT DENTAL [address] [place] [address] Rashida Tejeda [address] [place] [address] 03/27/2025 10:15 AM EST Office Visit [facility] MEDICINE [address] [place] [address] Devika Olivares DO [address] [place] [address] 04/29/2025 10:00 AM EST Office Visit [facility] [address] [place] [address] Rashid Rainey, DDS [address] [place] [address] 06/05/2025 9:30 AM EST Office Visit [facility] ADULT DENT[facility] [address] [place] [address] Andrew Tejedaaris [address] [place] [address] 07/07/2025 1:00 PM EDT Office Visit [facility] OPTOMETRY [address] [place] [address] Tarlev, Kimmie, OD [address] [place] [address] documented as of this encounter Procedures Procedure Name Priority Date/Time Associated Diagnosis Comments XR KNEE 4+ VIEWS RIGHT Routine 03/16/2025 11:45 AM EST documented in this encounter Results * XR Knee 4+ Views Right (03/16/2025 11:45 AM EST) Anatomical Region Laterality Modality Lower Extremities, Knee Right [facility] 03/16/2025 11:4 5 AM EST Narrative 03/16/2025 11:57 AM EST [facility] [address] [place] [address] XRay Report Signed Patient: Shavonne Machado MR#: [id number] : 1975 Acct:[id number] Age/Sex: 49 / F ADM Date: 03/16/25 Loc: HO.HHCX Attending Dr: Jacquie BRICEÑO Ordering Physician: Jacquie Heller Date of Service: 03/16/25 Procedure(s): XR knee RT 4V Accession Number(s): [id number] cc: Jacquie Heller; Pamela Tariq MD Reason for Exam: increasing pain slipped on ice and fell on right knee EXAMINATION: XR KNEE, RIGHT CLINICAL INFORMATION: increasing pain slipped on ice and fell on right knee COMPARISON: None available. TECHNIQUE: Four views of the right knee. FINDINGS: No fracture or joint effusion. Alignment is anatomic. Joint spaces are maintained. No abnormal soft tissue calcification. XR/XR knee RT 4V IMPRESSION: Unremarkable right knee. Electronically signed by: Linden Villasenor MD 03/16/2025 11:54 AM EST RP Dictated By: Linden Villasenor MD Signed By: <Electronically signed by Linden Villasenor MD in OV> 03/16/25 1154 DD/ 1145 TD/TT: 03/16/25 1148 Burning Plant Operator: Procedure Note Donotuseinterpreter, Image - 03/16/2025 [place] [address] XRay Report Signed Patient: Shavonne MachadoMR#: [id number] : 1975Acct:[id number] Age/Sex: 49 / FADM Date: 03/16/25 Loc: HO.HHCX Attending Dr: Jacquie BRICEÑO Ordering Physician: Jacquie Heller Date of Service: 03/16/25 Procedure(s): XR knee RT 4V Accession Number(s): [id number] cc: Jacquie Heller; Pamela Tariq MD Reason for Exam: increasing pain slipped on ice and fell on right knee EXAMINATION: XR KNEE, RIGHT CLINICAL INFORMATION: increasing pain slipped on ice and fell on right knee COMPARISON: None available. TECHNIQUE: Four views of the right knee. FINDINGS: No fracture or joint effusion. Alignment is anatomic. Joint spaces are maintained. No abnormal soft tissue calcification. XR/XR knee RT 4V IMPRESSION: Unremarkable right knee. Electronically signed by: Linden Villasenor MD 03/16/2025 11:54 AM EST RP Dictated By: Linden Villasenor MD Signed By: <Electronically signed by Linden Villasenor MD in OV> 03/16/25 1154 DD/ 1145 TD/TT: 03/16/25 1148 Burning Plant Operator: us Jacquie Heller [employer] IMG XR PROCEDURES Final Result documented in this encounter Visit Diagnoses Diagnosis Acute pain of right knee- Primary documented in this encounter Additional Health Concerns Assessment Noted Time PHQ-9 Depression Total Score: 18 025 9:19 AM EDT documented as of this encounter Care Teams Smoking Pipe Mounter Relationship Specialty Start Date End Date Devika Olivares DO [address] [place] [id number] PCP - General Family Medicine 07/21/24 documented as of this encounter
--- OUTSIDE RECORDS SUMMARY | 2025-03-16 19:32 | XMS_ITS | Encounter Summary ---
Author Organization [employer] Address [address] [facility] 7t [place] [address] Care Team Providers Care Machining Technician Name Role Phone EliseDevika Primary Care Provider [phone] Reason for Visit * Reason Onset Date Comments Results 03/16/2025 Encounter Details Date Type Department Care Team (Late st Contact Info) Description 03/16/2025 Results Follow-Up [facility] [address] [place] [address] Jacquie Heller FNP [address] [place] [address] XR Knee 4+ Views Right Social History Tobacco Use Types [...] with others, in a hotel, in a group home, living outside on the street, on a [...] as of this encounter Miscellaneous Notes * Telephone Encounter - Elida Lundberg RN - 03/16/2025 6:47 PM EST TC placed to pt and the message below was discussed, pt had no further questions ----- Message from Jacquie Heller sent at 03/16/2025 5:43 PM EST ----- Please inform Shavonne her Xray is unremarkable no fracture. She should continue with icing and take the pain med as prescribed Thank you ----- Message ----- From: Swati, Ris Results In Sent: 03/16/2025 11:57 AM EST To: NAVARRO Yan * Result Encounter Note - NAVARRO Yan - 03/16/2025 5:43 PM EST Please inform Shavonne her Xray is unremarkable no fracture. She should continue with icing and take the pain med as prescribed Thank you documented in this encounter Plan of Treatment Upcoming Encounters Date Type Department Care Team (Late st Contact Info) Description 03/17/2025 3:00 PM EST Office Visit [facility] ADULT DENTAL [address] [place] [address] Nikhil Rashida [address] [facility] [place] [address] 03/27/2025 10:15 AM EST Office Visit [facility] MEDIC[facility] 230 [place] [address] Devika Olivares DO 230 [facility] [place] [address] 04/29/2025 10:00 AM EST Office Visit [facility] ADULT DENT[facility] [address] [place] [address] Rashid Rainey DDS 230 [facility] [place] [address] 06/05/2025 9:30 AM EST Office Visit [facility]ULT DENT[facility] [address] [facility] [place] [address] Rashida [facility]jeda [facility] [place] [address] 07/07/2025 1:00 PM EDT Office Visit [facility] OPTOMETRY [address] [place] [address] TarkaKimmie, OD [address] [facility] [place] [address] documented as of this encounter Visit Diagnoses Not on filedocumented in this encounter Additional Health Concerns Assessment Noted Time PHQ-9 Depression Total Score: 18 02/05/ 025 9:19 AM EDT documented as of this encounter Care Teams Machining Technician Relationship Specialty Start Date End Date Devika Olivares DO [address] [facility] [place] [place] [address] PCP - General Family Medicine 07/21/24 documented as of this encounter
--- OUTSIDE RECORDS SUMMARY | 2025-03-16 19:32 | XMS_ITS | Encounter Summary ---
Author Organization [employer] Address [address] [place] [address] Care Team Providers Care Local Area Network Systems Adminstrator Name Role Phone DanikaDevika vasques Primary Care Provider Encounter Details Date Type Department Care Team (Latest Contact Info) Description 03/16/2025 Travel Social History Tobacco Use Types Packs/Day [...] with others, in a hotel, in a nursing home, living outside on the street, on [...] Description 03/17/2025 3:00 PM EST Office Visit [facility] ADULT DENTAL [address] [place] [address] Nikhil, Rashida [address] [place] [address] 03/27/2025 10:15 AM EST Office Visit [facility] MEDICINE [address] [place] [address] Devika Olivares DO [address] [place] [address] 04/29/2025 10:00 AM EST Office Visit [facility] ADULT DENT[facility] [address] [place] [address] Rashid Rainey DDS [address] [place] [address] 06/05/2025 9:30 AM EST Office Visit [facility] ADULT DENT[facility] [address] [place] [address] Nikhil, Rashida [address] [place] [address] 07/07/2025 1:00 PM EDT Office Visit [facility] OPTOMETRY [address] [place] [address] Kimmie Davison, OD [address] [place] [address] documented as of this encounter Visit Diagnoses Not on filedocumented in this encounter Additional Health Concerns Assessment Noted Time PHQ-9 Depression Total Score: 18 02/05/ 025 9:19 AM EDT documented as of this encounter Care Teams Local Area Network Systems Adminstrator Relationship Specialty Start Date End Date Devika Olivares DO [address] [place] [address] PCP - General Family Medicine 07/21/24 documented as of this encounter
--- OUTSIDE RECORDS SUMMARY | 2025-03-16 19:33 | XMS_ITS | Encounter Summary ---
Author Organization [employer] Address [address] [facility] 7t [place] [address] Care Team Providers Care Ore Mixer Name Role Phone Devika Olivares DO Primary Care Provider [phone] Encounter Details Date Type Department Care Team (Late st Contact Info) Description 03/29/2023 Abstract [facility] [address] [place] [address] Rashida Tejeda [address] [place] [address] Social History Tobacco Use Types Packs/Day Years [...] Description 03/17/2025 3:00 PM EST Office Visit [facility]ULT [facility] [address] [place] [address] Rashida Tejeda [address] [place] [address] 03/27/2025 10:15 AM EST Office Visit [facility] MED[facility] [address] [place] [address] Devika Olivares DO [address] [place] [address] 04/29/2025 10:00 AM EST Office Visit [facility] D[facility] [address] [place] [address] Rashid Rainey, KAREENS [address] [place] [address] 06/05/2025 9:30 AM EST Office Visit [facility] [address] [place] [address] NikhilRashida [address] [place] [address] 07/07/2025 1:00 PM EDT Office Visit [facility] OPTOMETRY [address] [place] [address] Kimmie Davison, OD [address] [place] [address] documented as of this encounter Visit Diagnoses Not on filedocumented in this encounter Care Teams Ore Mixer Relationship Specialty Start Date End Date Devika Olivares DO [address] [place] [address] PCP - General Family Medicine 07/21/24 documented as of this encounter
--- OUTSIDE RECORDS SUMMARY | 2025-03-16 19:33 | XMS_ITS | Encounter Summary ---
Author Organization [employer] Address [address] [facility] 7t [place] [address] Care Team Providers Care Chinese Instructor Name Role Phone EliseDevika Primary Care Provider [phone] Encounter Details Date Type Department Care Team (Late st Contact Info) Description 02/03/2025 Results Follow-Up [facility] [address] [place], [place] [phone] Dalila Ramírez MD [address] [place], [place] [phone] POCT Influenza A manually resulted, POCT Influenza B manually resulted, POCT Rapid COVID Ag Social History Tobacco Use Types Packs/Day Years [...] with others, in a hotel, in a residential, living outside on the street, on a [...] AM EDT documented as of this encounter Functional Status * Over the past 2 weeks, how often have you been bothered by any of the following problems? Question Answer Date of Assessment Author Patient Health Questionnaire-2 Score 6 02/05/2025 9:19 AM EDT Usha Del Real LM[facility] * Little interest or pleasure in doing things Answer Date of Assessment Author Nearly every day 02/05/2025 9:19 AM LOST Usha Barragan Ba, LMHC * Feeling down, depressed, or hopeless Answer Date of Assessment Author Nearly every day 02/05/2025 9:19 AM LOST Usha Barragan Ba, LMHC * Trouble falling or staying asleep, or sleeping too much Answer Date of Assessment Author Nearly every day 02/05/2025 9:19 AM EDT Usha Barragan Ba, LMHC * Feeling tired or having little energy Answer Date of Assessment Author More than half the days 02/05/2025 9:19 AM EDT Usha Robledo LM[facility] * Poor appetite or overeating Answer Date of Assessment Author More than half the days 02/05/2025 9:19 AM EDT Usha Robledo LM[facility] * Feeling bad about yourself - or that you are a failure or have let yourself or your family down Answer Date of Assessment Author More than half the days 02/05/2025 9:19 AM EDT Usha Robledo LM[facility] * Trouble concentrating on things, such as reading the newspaper or watching television Answer Date of Assessment Author More than half the days 02/05/2025 9:19 AM EDT Usha Robledo LM[facility] * Moving or speaking so slowly that other people could have noticed? Or the opposite - being so fidgety or restless that you have been moving around a lot more than usual. Answer Date of Assessment Author Several days 02/05/2025 9:19 AM EDT Usha Grady LM[facility] * Thoughts that you would be better off or hurting yourself in some way Answer Date of Assessment Author Not at all 02/05/2025 9:19 AM Usha Caballero LM[facility] * Patient Health Questionnaire-9 Score Answer Date of Assessment Author 18 02/05/2025 9:19 AM Usha Caballero LM[facility] * How difficult have these problems made it for you to do your work, take care of things at home, or get along with other people? Answer Date of Assessment Author Very difficult 02/05/2025 9:19 AM Usha Caballero LM[facility] * Over the last 2 weeks, how often have you been bothered by any of the following problems? Question Answer Date of Assessment Author Feeling nervous, anxious, or on edge 3 02/05/2025 9:18 AM EDTiffany Thibodeaux ctoria, ISAIAS Not being able to stop or control worrying 3 02/05/2025 9:18 AM EDT Tiffany Del Real ctoria, ISAIAS Worrying too much about different things 3 02/05/2025 9:18 AM EDTiffany Thibodeaux ctoria, ISAIAS Trouble relaxing 3 02/05/2025 9:18 AM EDT Usha Robledo LMHC Being so restless that it is hard to sit still 3 02/05/2025 9:18 AM EDTiffany Thibodeaux ctoria, TINAHC Becoming easily annoyed or irritable 3 02/05/2025 9:18 AM EDT Tiffany Del Real [facility] Feeling afraid as if something awful might happen 3 02/05/2025 9:18 AM EDT Usha Barragan Ba, LMHC JT-7 Total Score 21 02/05/2025 9:18 AM EDT Usha Del Real [facility] documented as of this encounter Plan of Treatment Upcoming Encounters Date Type Department Care Team (Late st Contact Info) Description 03/17/2025 3:00 PM EST Office Visit [facility] ADULT DENTAL [address] [place] [address] Nikhil, Rashida [address] [facility] [place] [address] 03/27/2025 10:15 AM EST Office Visit [facility] MEDICINE [address] [facility] [place] [address] Devika Olivares DO [address] [place] [address] 04/29/2025 10:00 AM EST Office Visit [facility] ADULT DENTAL [address] [place] [address] Rashid Rainey, DDS [address] [place] [address] 06/05/2025 9:30 AM EST Office Visit [facility] ADULT DENTAL [address] [facility] [place] [address] Nikhil, Rashida [address] [facility] [place] [address] 07/07/2025 1:00 PM EDT Office Visit [facility] OPTOMETRY [address] [facility] [place] [address] TarkaKimmie, OD [address] [facility] [place] [address] documented as of this encounter Visit Diagnoses Not on filedocumented in this encounter Additional Health Concerns Assessment Noted Time PHQ-9 Depression Total Score: 26 0414/2 025 11:20 AM EDT documented as of this encounter Care Teams Chinese Instructor Relationship Specialty Start Date End Date Devika Olivares DO [address] [place] [address] PCP - General Family Medicine 07/21/24 documented as of this encounter
--- OUTSIDE RECORDS SUMMARY | 2025-03-16 19:34 | XMS_ITS | Clinical Summary ---
Author Organization [employer] Address [address] [facility] 7[address] [place] [address] Care Team Providers Care Load Builder Name Role Phone Devika Olivares Primary Care Provider Allergies Active Allergy Reactions Criticality Noted Date [...] by mouth in the morning. 3 Active mirtazapine (Remeron) 45 MG tablet Take 45 mg by mouth at bedtime. 3 Active cholecalcifero l (Vitamin D-3) 50 MCG (2000 UT) capsule Take 1 capsule (50 mcg) by mouth Once per day. 90 capsule 3 5 07/26/19 26 Active FLUoxetine (PROzac) 10 MG capsule Take 1 capsule (10 mg) by mouth Once per day. 30 capsule 2 5 01/22/20 26 Active Diclofenac Sodium 1 % gel Apply 1 Application topically if needed each day (right foot pain). 50 g 5 Active Additional Information Patient not taking.Reported on 03/10/2025 azithromycin (Zithromax) 250 MG tablet Take 2 tabs day and then 1 tab daily 6 tablet 5 Active Additional Information Patient not taking.Reported on 03/10/2025 Dextromethorph an-guaiFENesin (Mucinex DM) 30-600 MG tablet sustained-rele ase 12 hour Use 1 tab TID 28 tablet 5 Active Additional Information Patient not taking.Reported on 03/10/2025 albuterol 108 (90 Base) MCG/ACT inhaler Inhale 2 puffs every 4 (four) hours if needed for wheezing. 18 g 5 02/04/20 26 Active naproxen (Naprosyn) 500 MG tablet Take 1 tablet twice daily with food x 5 days then as needed 30 tablet 5 Active acetaminophen (Tylenol Extra Strength) 500 MG tablet Take 2 tablets (1,000 mg) by mouth every 8 (eight) hours if needed for mild pain for up to 10 days. 30 tablet 5 03/26/20 25 Active ibuprofen 600 MG tablet TAKE 1 TABLET ONLY EVERY 6 HOURS. NO MORE THAN 4 IN 24 HOURS. 3 03/16/20 25 Discontin ued(Thera py completed ) naproxen (Naprosyn) 500 MG tablet Take 1 tablet with food twice daily x 5 days then as needed 30 tablet 5 03/16/20 25 Discontin ued(Enter ed in error) acetaminophen (Tylenol Extra Strength) 500 MG tablet Take 2 tablets (1,000 mg) by mouth every 8 (eight) hours if needed for mild pain for up to 10 days. 30 tablet 5 03/16/20 25 Discontin ued(Enter ed in error) Hospital, Clinic, or Other Facility Administered Medication Ordered Dose Route Frequency Start Date End Date Status ipratropium-albuterol (Duo-Neb) 0.5-2.5 mg/3 mL nebulizer solution 3 mgIndications:Acute bronchitis, unspecified organism 3 mg NEBULIZATION Once 02/03/2025 Ac tive Active Problems Problem Noted Date Diagnosed Date Right foot pain 01/21/2025 Assessment & Plan (01/21/2025 10:36 PM EDT): Normal exam , no swelling of toes ,foot not ankle, ,normal ROM of foot ,pain only over heel possible spur ? , no signs of infection nor inflammation,skin is intact , neuro exam is normal -foot exercises explained today -tylenol PRN -diclofenac topical -Right foot XR for evaluation for spurs -if needed according to XR will refer to medical housekeeper if needed Generalized anxiety disorder 07/21/2024 Assessment & Plan [...] commands; denied visual hallucinations. 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 Pt completed safety plan and was referred to [facility]- immediate appt made for OP services. Gave information for [facility] psychiatry with [facility] [place] for urgent and same-day appts. Pt will be referred for medication management with Remy Munoz. Pt will practice challenge negative thoughts and embrace her emotions. She will recognize signs when feeling severe hopelessness and intrusive thoughts. Information given for [facility], [phone] number and [facility] centers. 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 Pt hoping I can prescribe her psych meds, given pt off for so long I am prescribing lower dose of her Prozac 10 mg for now to start until pt can start psychiatric care Pt denies SI,advised pt to call clinic if experiencing this and to stop med Assessment & Plan (07/23/2024 1:32 PM EDT): [...] commands; denied visual hallucinations. 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 Pt completed safety plan and was referred to [facility]- immediate appt made for OP services. Gave information for [facility] psychiatry with [facility] for urgent and same-day appts. Pt will be referred for medication management with Remy Munoz. Pt will practice challenge negative thoughts and embrace her emotions. She will recognize signs when feeling severe hopelessness and intrusive thoughts. Information given for [phone] and [facility] centers. Resolved Problems Problem Noted Date Diagnosed Date Resolved Date Dental calculus 03/14/2023 07/21/2024 Missing teeth, acquired 03/14/202307/08 Encounters * This document contains information received from the source organization and may not represent a complete record from that organization. Date Type Department Care Team Description 03/16/2025 11:00 AM EST Office Visit [facility] [address] [place] [address] Acute pain of right knee (Primary Dx) 03/16/2025 Results Follow-Up [facility] [address] [address] Arron Jacquie, RN BUILDING XR Knee 4+ Views Right 03/16/2025 Travel 03/10/2025 3:00 PM EST Office Visit [facility] [address] [place] [address] Rashida Tejeda Periodontal disease (Primary Dx); Generalized gingival recession; Dental calculus 03/10/2025 Telephone [facility] [address] [place] [address] Devika Olivares DO Recall Appointment 03/10/2025 Travel 03/02/2025 1:30 PM EST Office Visit [facility] [address] [place] [phone] Bebe Ruiz DDS Dental caries (Primary Dx) 02/03/2025 10:40 AM EDT Office Visit [facility] [address] [address] Dalila Ramírez MD Acute bronchitis, unspecified organism 02/03/2025 Results Follow-Up [facility] [address] [place] [address] Dalila Ramírez MD POCT Influenza A manually resulted, POCT Influenza B manually resulted, POCT Rapid COVID Ag 02/03/2025 Travel 01/21/2025 10:20 AM EDT Office Visit [facility] [address] [address] Pamela Tariq MD Right foot pain (Primary Dx); Generalized anxiety disorder; Major depression, recurrent, chronic (CMS/HCC) 01/21/2025 Results Follow-Up [facility] [address] [place] [address] Pamela Tariq MD XR Foot 3+ Views [...] Orientation Straight 02/03/2025 10 :24 AM EDT Last Filed Vital Signs Vital [...] Mass Index 26.63 03/16/2025 10:34 AM EST Plan of Treatment Upcoming Encounters Date Type Department Care Team (Late st Contact Info) Description 03/17/2025 3:00 PM EST Office Visit [facility] [address] [place] [address] Rashida Tejeda [address] [place] [address] 03/27/2025 10:15 AM EST Office Visit [facility] [address] [place] [address] Devika Olivares DO [address] [place] [address] 04/29/2025 10:00 AM EST Office Visit [facility] [address] [place] [address] Rashid Rainey DDS [address] [place] [address] 06/05/2025 9:30 AM EST Office Visit [facility] [address] [place] [address] Nikhil, Rashida [address] [place] [address] 07/07/2025 1:00 PM EDT Office Visit [facility] [address] [place] [address] Kimmie Davison, OD [address] [place] [address] Health Maintenance Due Date Last Done Comments [...] 2024 08/10/2020, 07/20/2020 Influenza Vaccine (#1) 2024 Dental X-Ray: Bitewings 06/26/2025 06/26/19 25, 03/14/2024, 03/14/2023 Disability Screening 07/21/2025 07/21/2024 SDOH Screening 07/21/2025 07/21/2024 Depression Monitoring 08/06/2025 02/05/2025 , 02/05/2025 Zoster Vaccines (1 of 2) 11/04/2025 Dental X-Ray: Full Mouth 03/15/2026 03/14/2023 Tobacco Screening 03/16/2026 03/16/2025 DTaP/Tdap/Td Vaccines (2 - T d or [...] VIEWS RIGHT Routine 03/16/2025 11:45 AM EST LR PERIODONTAL SCALING AND ROOT PLANING - [...] PRESENTATION, DETAILED AND EXTENSIVE TREATMENT PLANNING Routine 03/02/2025 1:30 PM EST Dental caries 21 B(V) RESIN-BASED COMPOSITE - 1 SURF, POSTERIOR Routine 03/02/2025 1:30 PM EST Dental caries 20 B(V) RESIN-BASED COMPOSITE - 1 SURF, POSTERIOR Routine 03/02/2025 1:30 PM EST Dental caries 28 B(V) RESIN-BASED COMPOSITE - 1 SURF, POSTERIOR Routine 03/02/2025 1:30 PM EST Dental caries 9 F(V) RESIN-BASED COMPOSITE - 1 SURF, ANTERIOR Routine 03/02/2025 1:30 PM EST Dental caries 11 F(V) RESIN-BASED COMPOSITE - 1 SURF, ANTERIOR Routine 03/02/2025 1:30 PM EST Dental caries POCT INFLUENZA B Routine 02/03/2025 11:0 3 AM EDT Acute bronchitis, unspecified organism POCT INFLUENZA A Routine 02/03/2025 11:0 3 AM EDT Acute bronchitis, unspecified organism POCT RAPID COVID ANTIGEN Routine 02/03/2025 11:02 AM EDT Acute bronchitis, unspecified organism XR FOOT 3+ VIEWS RIGHT Routine 01/21/2025 [...] IMAGE Routine 06/25/2024 10:00 AM EDT Full buddhist of crown of tooth needed due to [...] Relevant to Health Maintenance Results * XR Knee 4+ Views Right (03/16/2025 11:45 AM EST) Anatomical Region Laterality Modality Lower Extremities, Knee Right Radiogra phic Imaging 03/16/2025 11:4 5 AM EST Narrative 03/16/2025 11:57 AM EST [address] [address] XRay Report Signed Patient: Shavonne Machado MR#: [id number] : 1975 Acct:[id number] Age/Sex: 49 / F ADM Date: 03/16/25 Loc: .HHCX Attending Dr: Jacquie BRICEÑO Ordering Physician: Jacquie Heller Date of Service: 03/16/25 Procedure(s): XR knee RT 4V Accession Number(s): [id number] cc: Jacquie Heller; Pamela Tariq MD Reason [...] Linden Villasenor MD 03/16/2025 11:54 AM EST Dictated By: Linden Villasenor MD Signed By: <Electronically signed by Linden Villasenor MD in OV> 03/16/25 1154 DD/ 1145 TD/TT: 03/16/25 1148 Information Systems Security Officer: Procedure Note Donfreddyter, Image - 03/16/[address] [address] XRay Report Signed Patient: Shavonne MachadoMR#: [id number] : 1975Acct:[id number] Age/Sex: 49 / FADM Date: 03/16/25 Loc: HO.HHCX Attending Dr: Jacquie BRICEÑO Ordering Physician: Jacquie Heller Date of Service: 03/16/25 Procedure(s): XR knee RT 4V Accession Number(s): [id number] cc: Jacquie Heller; Pamela Tariq MD Reason [...] Linden Villasenor MD 03/16/2025 11:54 AM EST Dictated By: Linden Villasenor MD Signed By: <Electronically signed by Linden Villasenor MD in OV> 03/16/25 1154 DD/ 1145 TD/TT: 03/16/25 1148 Information Systems Security Officer: Jacquie BRICEÑO IMG XR PROCEDURES Final Result * POCT Influenza B manually resulted (02/03/2025 11:03 AM EDT) [facility] Rapid Influenza B Ag Negative Negative, Indeterminate QC Media Lot # [id number] Lot# Expiration Date 22,127 Swab 02/03/2025 11:0 3 AM EDT Dalila Ramírez MD POINT OF CARE TEST ENTER/EDIT OR DERABLES Final Result * POCT Influenza A manually resulted (02/03/2025 11:03 AM EDT) [facility] Rapid Influenza A Ag Negative Negative, Indeterminate QC Media Lot # [id number] Lot# Expiration Date 102,826 Swab Nasopharyngeal structure / Unknown 02/03/2025 11:03 AM EDT Dalila Ramírez MD POINT OF CARE TEST ENTER/EDIT OR DERABLES Final Result * POCT Rapid COVID Ag (02/03/2025 11:02 AM EDT) Rapid COVID Ag Negative QC Media Lot # [id number] Lot# Expiration Date 102,826 Swab 02/03/2025 11:0 2 AM EDT Dalila Ramírez MD POINT OF CARE TEST ENTER/EDIT OR DERABLES Final Result * XR Foot 3+ Views Right (01/21/2025 12:18 PM EDT) Anatomical Region Laterality Modality Lower Extremities, Foot Right Radiogra phic Imaging 01/21/2025 12:1 8 PM EDT Narrative 01/21/2025 12:58 [place] [address] XRay Report Signed Patient: Shavonne Machado MR#: [id number] : 1975 Acct:[id number] Age/Sex: 49 / F ADM Date: 01/21/25 Loc: HO.HHCX Attending Dr: Pamela Serna MD Ordering Physician: Pamela Tariq MD Date of Service: 01/21/25 Procedure(s): XR foot RT min 3V Accession Number(s): [id number] cc: Pamela Tariq MD Reason for Exam: [...] 01/21/25 1255 DD/ 1218 TD/TT: 01/21/25 1251 Information Systems Security Officer: YORDY Procedure Note Donotuseinterpreter, Image - 01/21/[address] [address] XRay Report Signed Patient: Shavonne MachadoMR#: [id number] : 1975Acct:[id number] Age/Sex: 49 / FADM Date: 01/21/25 Loc: HO.HHCX Attending Dr: Pamela Serna MD Ordering Physician: Pamela Tariq MD Date of Service: 01/21/25 Procedure(s): XR foot RT min 3V Accession Number(s): [id number] cc: Pamela Tariq MD Reason for Exam: [...] 01/21/25 1255 DD/ 1218 TD/TT: 01/21/25 1251 Information Systems Security Officer: YORDY us Pamela Serna MD IMG XR PROCEDURES Final Result * Hepatitis C Antibody with Reflex to HCV, RNA, Quantitative, Real-Time PCR (07/22/2024 11:22 AM EDT) Pathologist [facility] Hepatitis C Antibody Nonreactive Nonreactive [facility] Comment:Antibodies to HCV no t detected; does not exclude early acuteHCV infection. Blood Venous blood specimen / Unknown 07/22/2024 11:22 AM EDT 07/22/2024 1:20 PM EDT Devika Elise LAB BLOOD ORDERABLES Final R esult Performing Organization Address [facility] Co de Phone Number [facility] [address] [place] [phone] * HIV-1/2 Antigen and Antibodies, Fourth Generation, with Reflexes (07/22/2024 11:22 AM EDT) [facility] HIV AB/AG Nonreactive Nonreactive [facility] Comment:HIV-1 p24 Ag and/or HIV-1/HIV-2 Ab not detected.A test result that is nonreactive does not exclude thepossibility of exposure to or infection with HIV-1 and/orHIV-2. Nonreactive results in this assay for individualswith prior exposure to HIV-1 and/or HIV-2 may be due toantigen and antibody levels that are below the limit ofdetection of this assay.The [employer] HIV Ag/Ab Combo assay result andsupplemental assay results should be interpreted inconjunction with the patient's clinical presentation,history and other laboratory results. If the results areinconsistent with clinical evidence, additional testing issuggested to confirm the result. Blood Venous blood specimen / Unknown 07/22/2024 11:22 AM EDT 07/22/2024 1:20 PM EDT Devika Jurlayo LAB BLOOD ORDERABLES Final R esult Performing Organization Address City/[facility] Co de Phone Number [facility] [address] [place] [phone] * Lipid Panel, Standard (07/22/2024 11:22 AM EDT) Triglycerides 62 <150 mg/dL [facility] Comment:Desirable Triglyceri de: less than 150 mg/dLBorderline High Triglyceride 150-199 mg/dLHigh Triglyceride: 200-499 mg/dLVery High Triglyceride: greater than or equal to 5OO mg/dL Cholesterol 169 <200 mg/dL [facility] Comment:Desirable Cholestero l: less than 200 mg/dLBorderline High Cholesterol: 200-239 mg/dLHigh Cholesterol: greater than 239 mg/dL LDL Cholesterol Calculated 90 <100 mg/dL [facility] Comment:Desirable LDL: less than 100 mg/dLNear Optimal/Above Optimal LDL: 110- 129 mg/dLBorderline High LDL: 130-159 mg/dLHigh LDL: 160-189 mg/dLVery High LDL: greater than or equal to 190 mg/dL HDL Cholesterol 67 >40 mg/dL [facility] Comment:Desirable HDL: great er than 40 mg/dL Note: This HDL assay may give artificially low results in patients with liver disease. Blood Venous blood specimen / Unknown 07/22/2024 11:22 AM EDT 07/22/2024 1:20 PM EDT us Devika Olivares DO LAB BLOOD ORDERABLES Final R esult [facility] [address] [place] [phone] from Last 3 Months or Most Recently Relevant to Health Maintenance Insurance HSN PARTIAL [facility] C3 DENTAL-[facility] MEDICAID STAND ADULT Care Teams Load Builder Relationship Specialty Start Date End Date Devika Olivares DO [address] [place] [phone] PCP - General Family Medicine 07/21/24
--- OUTSIDE RECORDS SUMMARY | 2025-03-16 19:34 | XMS_ITS | Encounter Summary ---
Author Organization [employer] Address [address] [facility] [address] [place] [address] Care Team Providers Care Utility Worker Name Role Phone Elise Devika Primary Care Provider [phone] Encounter Details Date Type Department Care Team (Late st Contact Info) Description 01/21/2025 Results Follow-Up [facility] [address] [place], [place] [phone] Pamela Tariq MD [address] [place] [address] XR Foot 3+ Views Right Social History [...] with others, in a hotel, in a alf, living outside on the street, on a [...] to follow w PCP may need then furnace operator and tender referral Thanks documented in this encounter Plan of Treatment Upcoming Encounters Date Type Department Care Team (Late st Contact Info) Description 03/17/2025 3:00 PM EST Office Visit [facility] [address] [place] [address] Rashida Tejeda [address] [place] [address] 03/27/2025 10:15 AM EST Office Visit [facility] [address] [place] [address] Devika Olivares DO [address] [place] [address] 04/29/2025 10:00 AM EST Office Visit [facility] [address] [place] [address] Rashid Rainey DDS [address] [place] [address] 06/05/2025 9:30 AM EST Office Visit [facility] [address] [place], [place] [phone] Nikhil, Rashida [address] [place] [address] 07/07/2025 1:00 PM EDT Office Visit [facility] [address] [place], [place] [phone] TarkaKimmie, OD [address] [place] [address] documented as of this encounter Visit Diagnoses Not on filedocumented in this encounter Additional Health Concerns Assessment Noted Time PHQ-9 Depression Total Score: 26 025 11:20 AM EDT documented as of this encounter Care Teams Utility Worker Relationship Specialty Start Date End Date Devika Olivares DO [address] [place] [phone] PCP - General Family Medicine 07/21/24 documented as of this encounter
== END 2025-03-16 11:31 | disposition home or self-care (01) ==
LOC: HO.HHCX 11:30
PROVIDERS: PCP Student in an Organized Health Care Education/Training Program; Visit Provider Nurse Practitioner Family
DX: M25.561 Pain in right knee (principal)
CPT/HCPCS: 73564

== ENCOUNTER → 2025-03-16 11:36 | Outpatient (BNV) | payer MEDICAID, SELFPAY | PROVIDERS: PCP Student in an Organized Health Care Education/Training Program; Visit Provider Radiology Diagnostic Radiology | DX: M25.561 Pain in right knee (principal); W01.0XXA Fall on same level from slipping, tripping and stumbling without subsequent striking against object, initial encounter | CPT/HCPCS: 73564 ==